=== PATIENT | male | born 1960 | race Caucasian/White ===

== ENCOUNTER → 2016-06-26 | Outpatient (REF) | payer OTHER ==
[~2016-06-26] MED LIST: ELIMITE TOP; NO HOME MEDS; TETR250C OR
== END ==
LOC: M LAB REF 16:35
PROVIDERS: ATTEND Family Medicine Addiction Medicine
DX: Z02.89 Encounter for other administrative examinations (principal)

== ENCOUNTER 2020-05-01 15:16 | Emergency (ER) | payer OTHER, SELFPAY ==
[~2020-05-01] VITALS: Ht 172.7 cm; Wt 56.7 kg
--- NOTE | 2020-05-01 17:40 | REP ---
INDICATION: pain in calf. COMPARISON: None. TECHNIQUE: Deep vein duplex ultrasound of the right lower extremity. FINDINGS: The deep veins demonstrate normal compression, normal Doppler color flow and normal Doppler waveforms at multiple levels from the popliteal vein to the common femoral vein. IMPRESSION: There is no evidence of right lower extremity deep vein thrombus. <Electronically signed by Werner Contreras > 05/01/20 [id number]
[2020-05-01 18:23] LABS: BASO # 0.1 10^3/uL (0.0-0.2); BASO % 0.8 % (0.0-1.0); EOS # 0.1 10^3/uL (0.0-0.5); EOS % 1.2 % (0.0-3.0); HEMATOCRIT 42.5 % (42.0-52.0); HEMOGLOBIN 14.1 g/dl (13.5-17.5); LYMPH # 2.1 10^3/uL (1.5-5.0); LYMPH % 24.5 % (24.0-44.0); MEAN CORPUSCULAR HEMOGLOBIN 31.3 pg (27.0-33.0); MEAN CORPUSCULAR HGB CONC 33.2 g/dl (32.0-36.5); MEAN CORPUSCULAR VOLUME 94.2 fl (80.0-96.0); MONO # 0.6 10^3/uL (0.0-0.8); MONO % 6.9 % (2.0-8.0); NEUTROPHILS # 5.6 10^3/uL (1.5-8.5); NEUTROPHILS % 66.2 % (36.0-66.0); PLATELET COUNT, AUTOMATED 210 10^3/uL (150-450); RED BLOOD COUNT 4.51 10^6/uL (4.30-6.10); WHITE BLOOD COUNT 8.5 10^3/uL (4.0-10.0)
[2020-05-01 18:44] LABS: ERYTHROCYTE SEDIMENTATION RATE 11 mm/hr (0-20)
[2020-05-01 19:07] LABS: MAGNESIUM LEVEL 2.2 MG/DL (1.8-2.4)
[2020-05-01 19:53] VITALS: BP 125/96
== END 2020-05-01 20:21 | disposition home or self-care (01) ==
LOC: M ED 15:16
DX: M79.604 Pain in right leg (principal); J44.9 Chronic obstructive pulmonary disease, unspecified; F17.200 Nicotine dependence, unspecified, uncomplicated; Z88.0 Allergy status to penicillin

== ENCOUNTER 2020-08-20 14:22 | Emergency (ER) | payer OTHER ==
[~2020-08-20] VITALS: Ht 175.3 cm; Wt 47.0 kg
[2020-08-20] MEDS ORDERED: ALBUTEROL SULFATE 2.5 MG/0.5 ML INH NEB SOLN INH ONE (14:40)
[2020-08-20] MEDS ORDERED: IPRATROPIUM 0.5MG/ALBUTEROL 2.5MG INH SOL UD 3ML (DUONEB) NEB ONE (14:40)
[2020-08-20] MEDS ORDERED: methylPREDNISolone 125MG 2ML VIAL IV ONE (14:40)
--- NOTE | 2020-08-20 15:03 | REP ---
INDICATION: DYSPNEA/COUGH COMPARISON: 03/08/2014 TECHNIQUE: Portable AP view of the chest FINDINGS: The mediastinum and cardiac silhouette are stable and within normal limits for portable technique. The lung adler demonstrate chronic emphysematous changes without focal consolidation. No effusion or pneumothorax. Skeletal structures are intact. IMPRESSION: No acute cardiopulmonary process appreciated. <Electronically signed by Daniel Issa > 08/20/20 1500
[2020-08-20 15:42] LABS: BASO # 0.1 10^3/uL (0.0-0.2); BASO % 0.6 % (0.0-1.0); EOS % 0.2 % (0.0-3.0); HEMATOCRIT 52.2 % (42.0-52.0); HEMOGLOBIN 16.6 g/dl (13.5-17.5); LYMPH # 1.3 10^3/uL (1.5-5.0); LYMPH % 10.8 % (24.0-44.0); MEAN CORPUSCULAR HEMOGLOBIN 29.9 pg (27.0-33.0); MEAN CORPUSCULAR HGB CONC 31.8 g/dl (32.0-36.5); MEAN CORPUSCULAR VOLUME 93.9 fl (80.0-96.0); MONO # 0.6 10^3/uL (0.0-0.8); MONO % 4.9 % (2.0-8.0); NEUTROPHILS # 10.3 10^3/uL (1.5-8.5); PLATELET COUNT, AUTOMATED 239 10^3/uL (150-450); RED BLOOD COUNT 5.56 10^6/uL (4.30-6.10); WHITE BLOOD COUNT 12.4 10^3/uL (4.0-10.0)
[2020-08-20 16:04] LABS: ALBUMIN 3.6 GM/DL (3.2-5.2); ALT/SGPT 29 U/L (12-78); BILIRUBIN,DIRECT 0.1 MG/DL (0.0-0.2); BILIRUBIN,TOTAL 0.5 MG/DL (0.2-1.0); BLOOD UREA NITROGEN 27 MG/DL (7-18); CALCIUM LEVEL 9.4 MG/DL (8.8-10.2); CARBON DIOXIDE LEVEL 25 MEQ/L (21-32); CHLORIDE LEVEL 108 MEQ/L (98-107); CK-MB VALUE MASS 4.1 NG/ML (<3.6); CPK CREATINE PHOSPHOKINASE 154 U/L (39-308); CREATININE FOR GFR 0.97 MG/DL (0.70-1.30); GLOMERULAR FILTRATION RATE > 60.0 (>49); GLUCOSE, FASTING 101 MG/DL (70-100); MB/CK RELATIVE INDEX 2.66 (< OR =4); NT-PRO BNP 313 PG/ML (<125); POTASSIUM SERUM 3.9 MEQ/L (3.5-5.1); SODIUM LEVEL 144 MEQ/L (136-145); THYROXINE (T4) 11.3 UG/DL (4.5-12.0); TOTAL PROTEIN 7.6 GM/DL (6.4-8.2); TROPONIN I < 0.02 NG/ML (< 0.10)
[2020-08-20] MEDS ORDERED: ISOVUE-370 76% 100ML VIAL As Ordered ONE (16:33)
--- NOTE | 2020-08-20 17:07 | REP ---
INDICATION: weight loss, cannot swallow, hoarse voice ro ca COMPARISON: None. TECHNIQUE: Axial contrast-enhanced images from the skull base to the thoracic inlet with coronal and sagittal reformations using 100 cc Isovue 370 intravenous contrast material. This CT examination was performed using the following dose reduction techniques: Automated exposure control, adjustment of mA and/or kv according to the patient's size, and use of iterative reconstruction technique. FINDINGS: The naso, shmuel and hypopharynx, larynx and subglottic trachea are grossly normal in appearance. There is subtle asymmetric prominence along the left side of the neck which is likely related to musculature and less likely mass lesion. Evaluation is somewhat limited due to lack of contrast related to timing of image acquisition. The salivary and thyroid glands are normal in size and density. Small lymph nodes less than 1 cm in size are present in the internal jugular chains, posterior triangles, submandibular and submental areas. The lung apices are clear. The visualized sinuses are clear. There is no obvious mass lesion. However enhancement through the soft tissues of the neck is somewhat limited by timing. IMPRESSION: Limited evaluation of the neck without obvious abnormality. There is subtle asymmetric soft tissue along the superficial left side of the neck which may be related to asymmetric musculature. If the patient remains symptomatic contrast-enhanced nonemergent outpatient MRI of the neck may be warranted for further investigation. <Electronically signed by Daniel Issa > 08/20/20 [id number]
--- NOTE | 2020-08-20 17:12 | REP ---
INDICATION: weight loss, cannot swallow, hoarse voice ro ca COMPARISON: 03/08/2014 TECHNIQUE: Axial contrast enhanced images from the thoracic inlet to the upper abdomen with coronal and sagittal reformations using 100 ml Isovue 370 intravenous contrast material. This CT examination was performed using the following dose reduction techniques: Automated exposure control, adjustment of mA and/or kv according to the patient's size, and use of iterative reconstruction technique. FINDINGS: Chronic emphysematous changes along with biapical and limited linear bibasilar scarring is similar to prior examination. There are two posterior left upper lobe subpleural nodules with central calcification which are likely benign and relatively similar to prior examination. The current examination demonstrates significant mucous plugging to the bilateral lower lobes with small early patchy airspace disease suspected in the left lower lobe. No discrete consolidation. No effusion. No pneumothorax. No significant adenopathy. Further evaluation of the mediastinum demonstrates age-related atherosclerotic changes to the thoracic aorta and coronary arteries without aortic aneurysm, dissection or cardiomegaly. No pericardial effusion. Surrounding musculoskeletal structures of the thorax demonstrate age-related changes without obvious focal abnormality. IMPRESSION: 1. Chronic appearing changes. 2. Significant mucous plugging involving the bilateral 1st and 2nd order lower lobe pulmonary bronchi with possible early patchy subtle airspace disease in the left lower lobe. Follow-up to resolution is recommended. <Electronically signed by Daniel Issa > 08/20/20 [id number]
--- NOTE | 2020-08-20 17:18 | REP ---
INDICATION: weight loss, cannot swallow, hoarse voice ro ca. COMPARISON: 12/09/2012 TECHNIQUE: Axial contrast-enhanced images from the lung bases to the pubic symphysis using 100 cc Isovue 370 intravenous contrast material. Delayed images of the abdomen along with coronal and sagittal reformations obtained. This CT examination was performed using the following dose reduction techniques: Automated exposure control, adjustment of mA and/or kv according to the patient's size, and the use of iterative reconstruction technique. FINDINGS: Liver demonstrates scattered small hypodensities similar to prior examination and consistent with cysts. Spleen, pancreas, gallbladder, bilateral adrenal glands and kidneys are normal. Further evaluation of the abdomen and pelvis is significantly limited by cachexia and lack of both intraperitoneal fat/intrinsic contrast and intraluminal contrast opacification. Evaluation of the enteric system is significantly limited although there is no obvious obstruction and no definite inflammatory process. However, a subtle colitis involving the sigmoid colon cannot definitively be excluded and should be correlated clinically. Limited evaluation of the pelvis demonstrates essentially normal bladder and age-appropriate prostate/seminal vesicles. No ascites. No free air. No obvious adenopathy. Atherosclerotic changes to the aorta and vasculature noted without aneurysm or dissection. Musculoskeletal structures demonstrate age-related changes without obvious focal abnormality. IMPRESSION: 1. Significantly limited examination due to lack of intraperitoneal fat and intrinsic contrast as well as lack of intraluminal oral contrast. 2. Cannot exclude a mild sigmoid colitis and correlation is required. 3. No obvious ascites. No free air. No obvious adenopathy. <Electronically signed by Daniel Issa > 08/20/20 0967
[2020-08-20] MEDS ORDERED: PRED20TA PO (17:40)
[2020-08-20] MEDS ORDERED: DOXY1CAP62 PO (17:41)
[2020-08-20] MEDS ORDERED: ALBU8.5H INH (17:41)
[2020-08-20 17:52] VITALS: BP 162/86
--- NOTE | 2020-08-20 19:30 | ECGEPIP ---
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
--- NOTE | 2020-08-21 06:27 | ED PDOC ---
Post-Departure Follow-Up [facility] faxed formal report of ct neck and cta chest for fu Cece Martinez MD Aug 21, 2020 06:27
== END 2020-08-20 17:58 | disposition home or self-care (01) ==
LOC: M ED 14:22
DX: J18.9 Pneumonia, unspecified organism (principal); J44.1 Chronic obstructive pulmonary disease with (acute) exacerbation; R63.4 Abnormal weight loss; R49.0 Dysphonia; R00.0 Tachycardia, unspecified; I51.7 Cardiomegaly; F17.200 Nicotine dependence, unspecified, uncomplicated; Z88.0 Allergy status to penicillin
CPT/HCPCS: 70491; 71045; 71260; 74177; 80048; 80076; 82550; 82553; 83605; 83880; 84436; 84443; 84484; 85025; 87798; 93005; 93041; 94640; 94760; 99285; Q9967

== ENCOUNTER 2020-08-25 06:55 | Inpatient (IN) | payer MEDICAID, OTHER ==
[~2020-08-25] VITALS: Ht 175.3 cm; Wt 45.8 kg
[2020-08-25] VITALS (11 sets, daily range): BP systolic 122–148; BP diastolic 62–73
[~2020-08-25 06:55] MED LIST changes: +ALBU8.5H INH; +DOXY1CAP62 PO; +PRED20TA PO
[2020-08-25] MEDS ORDERED: RACEPINEPHrine 2.25 % UD INHA INH ONE (07:15)
[2020-08-25 07:48] LABS: VENOUS HCO3 29.4 MEQ/L (23.0-27.0); VENOUS O2 SATURATION 84.9 % (60.0-80.0); VENOUS PARTIAL PRESSURE CO2 54.1 mmHg (38.0-50.0); VENOUS PARTIAL PRESSURE O2 50.9 mmHg (30.0-50.0); VENOUS PH 7.353 UNITS (7.330-7.430); VENOUS STANDARD HCO3 25.8 MEQ/L; VENOUS TOTAL CO2 31.1 MEQ/L (24.0-28.0)
[2020-08-25 07:53] LABS: BASO # 0.1 10^3/uL (0.0-0.2); BASO % 0.3 % (0.0-1.0); HEMATOCRIT 57.9 % (42.0-52.0); HEMOGLOBIN 18.8 g/dl (13.5-17.5); LYMPH # 1.1 10^3/uL (1.5-5.0); LYMPH % 5.4 % (24.0-44.0); MEAN CORPUSCULAR HEMOGLOBIN 29.9 pg (27.0-33.0); MEAN CORPUSCULAR HGB CONC 32.5 g/dl (32.0-36.5); MEAN CORPUSCULAR VOLUME 92.1 fl (80.0-96.0); MONO # 1.1 10^3/uL (0.0-0.8); MONO % 5.7 % (2.0-8.0); NEUTROPHILS # 17.4 10^3/uL (1.5-8.5); NEUTROPHILS % 87.9 % (36.0-66.0); PLATELET COUNT, AUTOMATED 256 10^3/uL (150-450); RED BLOOD COUNT 6.29 10^6/uL (4.30-6.10); WHITE BLOOD COUNT 19.8 10^3/uL (4.0-10.0)
--- NOTE | 2020-08-25 08:08 | REP ---
INDICATION: DYSPNEA/COUGH COMPARISON: 08/20/2020 TECHNIQUE: Portable AP view of the chest FINDINGS: The mediastinum and cardiac silhouette are stable and within normal limits for portable technique. The lung adler demonstrate chronic changes without acute consolidation, effusion, or pneumothorax. Skeletal structures are intact. IMPRESSION: No acute cardiopulmonary process appreciated. <Electronically signed by Daniel Issa > 08/25/20 0888
[2020-08-25] MEDS ORDERED: dexameTHASONE 20MG/5ML VIAL (J1100 PER 1MG) IV ONE (08:15)
--- NOTE | 2020-08-25 08:15 | REP ---
INDICATION: DYSPNEA/COUGH. COMPARISON: Comparison is made with images from CT study of the soft tissues of the neck August 20, 2020.. TECHNIQUE: AP and 2 lateral views are provided. FINDINGS: There is fairly extensive soft tissue fullness about the glottis suggesting a glottic or transglottic mass lesion. There is an irregular calcification which in comparison with the CT study from August 20, 2020 is seen to be asymmetric calcification of the left arytenoid cartilage. The CT study confirms the presence of a transglottic mass effect. Retropharyngeal soft tissues are not widened. There is slight is distention of the hypopharynx. Patient is edentulous. There are degenerative disc changes at C3-4, C4-5, C5-6, and C6-7 with straightening of the normal cervical lordosis. There is some vascular calcification in the distribution of the left carotid artery. 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 Asymmetric calcification of the arytenoid cartilage on the left. Mild distention of the hypopharynx and suggestion of airway narrowing at the level of the glottis. 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 The critical information above was relayed directly by me by telephone to Fatoumata Auguste on 08/25/2020 at 8:11 am with readback verification. <Electronically signed by Ten Varner > 08/25/20 0878
[2020-08-25 08:19] LABS: ALBUMIN 3.5 GM/DL (3.2-5.2); BILIRUBIN,DIRECT 0.3 MG/DL (0.0-0.2); BILIRUBIN,TOTAL 0.7 MG/DL (0.2-1.0)
[2020-08-25] MEDS ORDERED: NS 1,000 ML IV SCH ×2 (08:40→12:20)
[2020-08-25] MEDS ORDERED: CETACAINE SPRAY 5GM TOP ONE (08:50)
[2020-08-25] MEDS ORDERED: OXYMETAZOLINE 0.05% NASAL SPRAY (AFRIN) ONE (08:50)
[2020-08-25] MEDS ORDERED: D5W/0.45% SODIUM CHLORIDE 1,000 ML IV SCH (09:25)
[2020-08-25] MEDS ORDERED: LEVALBUTEROL 1.25 MG/0.5 ML CONCENTRATE NEB INH PRN (09:25)
[2020-08-25] MEDS ORDERED: PRED20TA PO (09:27)
[2020-08-25] MEDS ORDERED: PROAAER10 INH (09:27)
[2020-08-25] MEDS ORDERED: DOXY100T27 PO (09:27)
[2020-08-25] MEDS ORDERED: PHENYLEPHRINE 0.5% NASAL SPRAY 15 ML As Ordered ONE (09:29)
[2020-08-25] MEDS ORDERED: LIDOCAINE W/EPINEPHRINE 1% 20ML VIAL As Ordered ONE (09:29)
[2020-08-25] MEDS: LEVALBUTEROL 1.25 MG/0.5 ML CONCENTRATE NEB NEB SCH ×3 (09:45→10:45)
[2020-08-25 09:48] LABS: RSV AMPLIFICATION NEGATIVE (NEGATIVE)
--- NOTE | 2020-08-25 09:55 | CR.PDOC ---
General Date of Consultation: Aug 25, 2020 Referring Provider: A Consultation REASON FOR CONSULTATION/CHIEF COMPLAINT: [Laryngeal mass, stridor]. HISTORY OF PRESENT ILLNESS: [60 YO male presented to ER SOB and stridor. Two month history of progressive ST and SOB. Seen in ER one week ago with same given steroids and d/c. Returned this am with worsening.]. ALLERGIES: Please see below. HOME MEDICATIONS: Please see below. PAST MEDICAL HISTORY: 1. . 2. . PAST SURGICAL HISTORY: 1. 2. FAMILY HISTORY: Father: Mother: Siblings: Children: Hereditary Diseases: Unexpected deaths due to medical reasons: SOCIAL HISTORY: Marital status and/or living arrangements: Children: Employment: Tobacco use:[35 pack years] ETOH: Illicit drug use: IV drug use: Other relevant social factors: REVIEW OF SYSTEMS: CONSTITUTIONAL: . HEENT: . CARDIOVASCULAR: . RESPIRATORY: . GENITOURINARY: . MUSCULOSKELETAL: . GASTROINTESTINAL: . SKIN: . NEUROLOGICAL: . PSYCHIATRIC: . ENDOCRINE: . HEMATOLOGIC/LYMPHATIC: . ALLERGIC/IMMUNOLOGIC: . PHYSICAL EXAMINATION: VITAL SIGNS: Please see below. GENERAL APPEARANCE: [thin cachetic]. HEENT: [Ears bilateral WEATHERS's. Nose left septal deviation. External skin lesion. lip teeth and gums WNL.OC and OP normal. Neck no adenopathy. Fiberoptic scope showed obstructing laryngeal mass no cord motion Small airway posteriorly for breathing.]. RESPIRATORY: [Stridor faint braeth sounds equal.]. CARDIOVASCULAR: [No M/B]. ABDOMEN: . EXTREMITIES: . NEUROLOGICAL: . PSYCHIATRIC: [Pt calm despite stridor.]. LABORATORY DATA: Please see below. ASSESSMENT/PLAN: 1. [Obstructing laryngeal lesion will need immediate OR for awake trach laryngoscopy and biopsy.]. 2. . Vital Signs/I&O Vital Signs Date Time Temp Pulse Resp B/P (MAP) Pulse Ox O2 Delivery O2 Flow Rate FiO2 08/25/20 07:46 Room Air 08/25/20 07:17 97.9 98 26 140/84 (102) 94 Laboratory Data Labs 24H Laboratory Tests 2 08/25/20 07:39: Immature Granulocyte % (Auto) 0.7, Neutrophils (%) (Auto) 87.9H, Lymphocytes (%) (Auto) 5.4L, Monocytes (%) (Auto) 5.7, Eosinophils (%) (Auto) 0.0, Basophils (%) (Auto) 0.3, Neutrophils # (Auto) 17.4H, Lymphocytes # (Auto) 1.1L, Monocytes # (Auto) 1.1H, Eosinophils # (Auto) 0.0, Basophils # (Auto) 0.1, Nucleated Red Blood Cells % (auto) 0.0, Blood Gas Bicarbonate Standard 25.8, Venous Blood pH 7.353, Venous Blood Partial Pressure CO2 54.1H, Venous Blood Partial Pressure O2 50.9H, Venous Blood Total Carbon Dioxide 31.1H, Venous Blood HCO3 29.4H, Venous Blood Oxygen Saturation 84.9H, Venous Blood Base Excess 2.0, Total Bilirubin 0.7, Direct Bilirubin 0.3H, Aspartate Amino Transf (AST/SGOT) 38H, Alanine Aminotransferase (ALT/SGPT) 55, Alkaline Phosphatase 87, Total Protein 8.0, Albumin 3.5, Albumin/Globulin Ratio 0.8 08/25/20 07:46: POC Glucose (Misc Panel) 119H, POC Sodium (Misc Panel) 142, POC Potassium (Misc Panel) 3.8, POC Chloride (Misc Panel) 101, POC Total CO2 (Misc Panel) 29.0H, POC Blood Urea Nitrogen (Misc Panel 51H, POC Ionized Calcium (Misc Panel) 4.2L, POC Creatinine (Misc Panel) 1.0, POC Hematocrit (Misc Panel) 57.0H 08/25/20 07:48: POC Troponin I (Misc) 0.00 08/25/20 08:55: CBC/BMP Laboratory Tests 08/25/20 07:39 Allergies Coded Allergies: Penicillins (Verified Allergy, Intermediate, rash, 05/01/20) Home Medications Scheduled Doxycycline Monohydrate (Doxycycline Monohydrate) 100 Mg Tablet, 100 MG PO Q12H, (Reported) Prednisone (Prednisone) 20 Mg Tablet, 20 MG PO ASDIRECTED, (Reported) 3 TABS DAYS 1-3, 2 TABS DAYS 4-7, 1 TAB DAYS 8-10 PICKED UP FROM PHARMACY 08/22/20 Scheduled PRN Albuterol Sulfate (Proair Hfa) 8.5 Gm Hfa.aer.ad, 2 PUFF INH Q6-8HP PRN for DYSPNEA, (Reported) Dale Veloz MD Aug 25, 2020 09:55
[2020-08-25] MEDS: DOXYCYCLINE HYCLATE 100 MG in D5W MINI-BAG PLUS 100 ML IV SCH ×2 (10:02→22:12)
[2020-08-25] MEDS ORDERED: KETAMINE HCL 200 MG/20 ML VIAL As Ordered ONE (10:05)
--- NOTE | 2020-08-25 10:22 | HPE ---
HISTORY AND PHYSICAL DATE OF ADMISSION: 08/25/2020 CHIEF COMPLAINTS: sob,hard to swallow, sore throat, wheezing HISTORY OF PRESENT ILLNESS: This 60-year-old active smoker of half a pack a day for 35 years, COPD not home oxygen or steroid dependent was seen in the Emergency Room on August 19 due to complaints of sore throat, wheezing and shortness of breath was sent home and returns again today with worsening sore throat, difficulty breathing and worsening wheezing. Patient denies any cough productive of sputum, fever, chills, nausea, vomiting, chest pain, pressure or tightness, lightheadedness or near syncopal episode at home. In the ER patient was noted to have mild respiratory distress, but was saturating 94% on room air; stridor noted on examination. CT of the neck shows soft tissue mass effect in and about the level of the glottis consistent with laryngeal neoplasm with asymmetric calcification of thyroid cartilage on the left and extension of the hypopharynx suggestive of airway narrowing. 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 Hospitalist was asked to admit the patient emergently for airway compromise secondary to possible laryngeal neoplasm. ENT, Dr. Veloz had done a direct laryngoscopy and will bring the patient to the operating room emergently. Patient otherwise denies any prior history of CAD, KS, congestive heart failure. Chest x-ray is clear with no heart failure or acute cardiopulmonary process. He denies any chest pain, pressure or tightness, near syncopal episode at home. He otherwise denies any weight changes, dysphagia, odynophagia, bright red blood per rectum, melena, black tarry stool, coffee ground emesis or hematemesis. No dysuria, urgency or frequency, fever or chills, bilateral upper and lower extremity paresthesias or weakness. No depression or anxiety. Complains of sore throat with no pharyngeal discharge, fever or chills at home. No rhinorrhea. Respiratory panel for Coronavirus is pending. Patient has a white count of 19.8, hemoglobin 18, hematocrit 57. PAST MEDICAL HISTORY: COPD. PAST SURGICAL HISTORY: None. ALLERGIES: PENICILLIN causing rash. HOME MEDICATIONS: 1. Albuterol 2 puffs q6-8h. 2. Doxycycline 100 twice a day. 3. Prednisone 20 as directed. FAMILY HISTORY: Father age 68 with emphysema was a smoker; mother with brain cancer in her 70s. SOCIAL HISTORY: Half a pack of smoking for 35 years. Retired worked in [employer]. No alcohol abuse. Patient does not have a Health Care Proxy. He is a Full Code. He has family Alcon Brizuela in [place] who is his nephew and a niece named Althea Brizuela, lives on [address] in [place]. REVIEW OF SYSTEMS: Per HPI, 12 point system otherwise negative. PHYSICAL EXAMINATION: Vital signs: Temperature 97.9, pulse 98, respiratory rate 26, blood pressure 140/84, 94% on room air. General: Patient is awake, alert, oriented times 3, mild conversational dyspnea 7-8 words and needs to catch his breath. He is disheveled appearing, cachetic with BMI of 19. He currently has stridor on exam. Neck: No thyromegaly, no cervical lymphadenopathy. Lungs: Diminished with bilateral expiratory wheezing. Heart: S1 and S2 sinus rhythm. Abdomen: Soft, nontender, nondistended, positive bowel sounds. Extremities: No cyanosis or clubbing. LABORATORY DATA: White count 19.8, hemoglobin 18.8, hematocrit 57.9, platelet count 256. Sodium 142, potassium 3.8, chloride 101, bicarb 28, BUN 51, creatinine 1, glucose 119. Ionized calcium 4.2. Troponin 0. Venous blood gas: pH 7.35, CO2 54, O2 50.9, bicarb 29.9. IMAGING STUDIES: EKG: Sinus rhythm, ventricular rate of 112, right atrial enlargement and ST changes in the inferior leads. X-ray shows a laryngeal mass concerning for neoplasm with airway compromise. ASSESSMENT: This is a 60-year-old active smoker with COPD presents with a previous sore throat on 08/19, treated with doxycycline and prednisone, re-presented with worsening shortness of breath with tracheal deviation due to airway compromise for a laryngeal mass. IMPRESSIONS/PLAN: 1. Acute airway compromise secondary to laryngeal mass: Patient is unstable and will need to go to the operating room emergently. Dr. Veloz, ENT, has been consulted. He has been kept n.p.o. with I.V. fluids for prevention of hypoglycemia, supplementation oxygen to keep saturations above 90%, continue with Solu-Medrol and nebulizer treatments, doxycycline. 2. COPD exacerbation currently with severe wheezing bilaterally: Nebulizer treatments are given, Xopenex as well as Solu-Medrol and doxycycline, supplementation oxygen to keep O2 sat greater than 90%. 3. Active tobacco abuse of half a pack a day for 35 years: Tobacco cessation counseling, nicotine patch. 4. Medical clearance: Patient needs to emergently go to the operating room. No prior history of CAD, KS or congestive heart failure; does not complain of any acute coronary syndrome. Patient is medically optimized to proceed to the OR. 5. DVT prophylaxis: With compression stockings. DIET: N.p.o. CODE STATUS: Full Code. MTDD
[2020-08-25] MEDS ORDERED: LABETALOL 100MG/20ML VIAL As Ordered ONE (10:52)
[2020-08-25] MEDS ORDERED: PHENYLephrine 500MCG 5ML (100MCG/ML) SYRINGE As Ordered ONE ×2 (11:03→11:21)
[2020-08-25] MEDS ORDERED: OXYMETAZOLINE 0.05% NASAL SPRAY (AFRIN) As Ordered ONE (11:16)
[2020-08-25] MEDS ORDERED: ROCURONIUM BROMIDE 50 MG/5 ML VIAL As Ordered ONE (11:21)
[2020-08-25] MEDS ORDERED: dexameTHASONE 4 MG/ML 1ML VIAL (J1100 PER 1MG) As Ordered ONE (11:21)
[2020-08-25] MEDS ORDERED: propofoL 200 MG/20 ML VIAL As Ordered ONE (11:22)
[2020-08-25] MEDS ORDERED: ONDANSETRON 4MG/2ML VIAL As Ordered ONE (11:22)
[2020-08-25] MEDS ORDERED: fentaNYL 100 MCG/2 ML INJECTION (J3010) As Ordered ONE (11:23)
[2020-08-25] MEDS ORDERED: MIDAZOLAM INJ 2MG/2ML VIAL (J2250 PER 1MG) As Ordered ONE (11:24)
[2020-08-25] MEDS ORDERED: SUGAMMADEX SODIUM 500 MG/5 ML VIAL (BRIDION) As Ordered ONE (11:26)
[2020-08-25] MEDS ORDERED: BACITRACIN OINTMENT 30GM TUBE As Ordered ONE (11:28)
[2020-08-25] MEDS ORDERED: HYDROMORPHONE HCL 0.5 MG/ 0.5 ML SYRINGE (J1170 PER 1) IV PRN (12:05)
[2020-08-25] MEDS ORDERED: ONDANSETRON 4MG/2ML VIAL IV PRN ×2 (12:05→12:20)
[2020-08-25] MEDS ORDERED: fentaNYL 100 MCG/2 ML INJECTION (J3010) IV PRN (12:05)
[2020-08-25] MEDS ORDERED: oxyCODONE 5MG TAB PO PRN (12:05)
[2020-08-25] MEDS ORDERED: LR 1,000 ML IV SCH (12:05)
[2020-08-25] MEDS ORDERED: EPIDURAL/PCA KEYS XX PRN (12:20)
[2020-08-25] MEDS ORDERED: MORPHINE 1MG/ML IN 0.9% NACL 100ML IV BAG IV PRN (12:20)
[2020-08-25] MEDS ORDERED: diphenhydrAMINE 50MG/ML VIAL (J1200) IV PRN (12:20)
[2020-08-25] MEDS ORDERED: NALOXONE INJ 0.4MG/1ML VIAL (J2310 PER 1MG) IV PRN (12:20)
[2020-08-25] MEDS ORDERED: NALBUPHINE HCL 10 MG/ML AMP (J2300) IV PRN (12:20)
[2020-08-25] MEDS: LEVALBUTEROL 1.25 MG/0.5 ML CONCENTRATE NEB INH SCH ×4 (13:22→23:28)
[2020-08-25] MEDS: NICOTINE 14 MG/24 HR TRANSDERMAL TD SCH (14:17)
[2020-08-25] MEDS: methylPREDNISolone 125MG 2ML VIAL IV SCH ×2 (14:18→20:18)
[2020-08-25] MEDS: LR 1,000 ML IV SCH (14:22)
[2020-08-25 14:37] LABS: INR 1.06
[2020-08-25 15:04] LABS: C REACTIVE PROTEIN QUANTITATIV 2.82 MG/DL (0.00-0.30); PREALBUMIN 14.9 MG/DL (20.0-40.0)
--- NOTE | 2020-08-25 15:51 | POST-OPPD ---
Postoperative Procedure Note Date Of Procedure: Aug 27, 2020 PREOPERATIVE DIAGNOSIS: [Obstructing laryngeal mass] POSTOPERATIVE DIAGNOSIS: [Same] FINDINGS: PROCEDURE: [Awake tracheostomy, suspension microlaryngoscopy and biopsy, biopsy of left submandibular skin lesion] SURGEON: Aminata] HEAD BUYER TOBACCO: [Yuki] ANESTHESIA: [Local for the awake trach general for the laryngoscopy and biopsy and for the biopsy of the left submandibular skin lesion] SPECIMENS: [#1 right and left laryngeal biopsies #2 left submandibular skin lesion] ESTIMATED BLOOD LOSS: [Less than 20 mL] REPLACED: [None] DRAINS: [None] COMPLICATIONS: [None] POSTOPERATIVE CONDITION: [Stable]. Operative note: Raymond is a 60-year-old gentleman who was seen in the emergency room with airway distress and sore throat. Fiberoptic exam revealed an obstructing laryngeal lesion. In my opinion it was not possible to intubate him safely. Therefore decision was made to take him to the operating room to undergo an awake tracheostomy and biopsy of the laryngeal lesion. Patient provided informed consent after discussion of the risks and benefits. He was taken to the operating room and positioned appropriately. The neck was prepped and draped in the usual fashion. We injected the skin with 1% lidocaine with epinephrine. Using a surgical marking pen we traced the proposed incision line. We then used a 15 blade to incise the skin sharply. We dissected the subcutaneous tissues down to the strap muscles which were . We identified the trachea in midline by palpation and ligated the soft tissues until the tracheal rings were exposed. We then cauterized the surface of the trachea. Using a 15 blade we incised into the tracheal space. We suctioned a large amount of mucus. A #8 Shiley endotracheal tube was placed. The balloon was inflated. Good oxygenation was obtained and the patient reported immediate relief of his obstructive breathing. He is then was administered general anesthesia. The endotracheal tube was secured with 2-0 silk suture in 4 quadrants. This was reinforced with trach ties. The bed was turned 90 degrees. The upper gums were protected with a moist gauze. A Dedo laryngoscope was inserted into the airway. The tongue base vallecula piriform and postcricoid areas were examined and were clear. The laryngeal surface of the epiglottis appeared clear. There was a large tumor involving the left and right true cord and false cord area. There was very little airway posteriorly. The Lewy suspension apparatus was connected. The microscope was brought into position. Cup biopsy forceps were used to sample tissue from the right and left laryngeal areas. Hemostasis was achieved with pledgets soaked in Afrin. These were removed. Hemostasis was evident. The laryngoscope was released from the Lewy suspension apparatus and removed from the airway. 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 Decision was made to biopsy this under the anesthesia. We injected with 1% lidocaine with epinephrine. We made a wedge biopsy with an 11 blade and remove this. We placed several 5-0 nylon sutures to close the area. Bacitracin ointment was placed on the incision. Patient was allowed to recover and taken to the postanesthesia care area in stable condition. Dale Veloz MD Aug 25, 2020 15:51
--- NOTE | 2020-08-25 17:01 | ECGEPIP ---
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
[2020-08-25] MEDS: BACITRACIN OINTMENT 30GM TUBE TOP SCH (22:11)
[2020-08-26] VITALS (21 sets, daily range): BP systolic 119–150; BP diastolic 60–77; O2SAT 89–97
[2020-08-26] MEDS: LR 1,000 ML IV SCH (02:27)
[2020-08-26] MEDS: methylPREDNISolone 125MG 2ML VIAL IV SCH ×3 (02:27→20:35)
[2020-08-26] MEDS: LEVALBUTEROL 1.25 MG/0.5 ML CONCENTRATE NEB INH SCH ×5 (03:20→20:04)
[2020-08-26 04:52] LABS: HEMATOCRIT 47.7 % (42.0-52.0); HEMOGLOBIN 15.2 g/dl (13.5-17.5); MEAN CORPUSCULAR HEMOGLOBIN 29.4 pg (27.0-33.0); MEAN CORPUSCULAR HGB CONC 31.9 g/dl (32.0-36.5); MEAN CORPUSCULAR VOLUME 92.3 fl (80.0-96.0); PLATELET COUNT, AUTOMATED 244 10^3/uL (150-450); RED BLOOD COUNT 5.17 10^6/uL (4.30-6.10); WHITE BLOOD COUNT 17.5 10^3/uL (4.0-10.0)
[2020-08-26 05:06] LABS: INR 1.05; PROTHROMBIN TIME 13.9 SECONDS (12.5-14.3)
[2020-08-26 05:07] LABS: PARTIAL THROMBOPLASTIN TIME 30.3 SECONDS (24.2-38.5)
[2020-08-26 05:13] LABS: ALT/SGPT 56 U/L (12-78); BILIRUBIN,DIRECT 0.4 MG/DL (0.0-0.2); BILIRUBIN,TOTAL 0.8 MG/DL (0.2-1.0); BLOOD UREA NITROGEN 39 MG/DL (7-18); CARBON DIOXIDE LEVEL 35 MEQ/L (21-32); CHLORIDE LEVEL 103 MEQ/L (98-107); CREATININE FOR GFR 0.86 MG/DL (0.70-1.30); GLOMERULAR FILTRATION RATE > 60.0 (>49); GLUCOSE, FASTING 98 MG/DL (70-100); POTASSIUM SERUM 4.2 MEQ/L (3.5-5.1); SODIUM LEVEL 141 MEQ/L (136-145); TOTAL PROTEIN 6.3 GM/DL (6.4-8.2)
--- NOTE | 2020-08-26 08:23 | REP ---
INDICATION: chest pain COMPARISON: 08/25/2020 at 7:52 a.m. TECHNIQUE: Portable AP view of the chest FINDINGS: Patient is status post tracheostomy which appears to be in satisfactory position. There is extensive subcutaneous emphysema at the neck extending into the bilateral shoulders and upper baylee thoraces as well as suspected did pneumomediastinum. Cardiac silhouette is normal/stable. The lung adler are clear. No consolidation, effusion, or pneumothorax. Skeletal structures are intact. IMPRESSION: 1. Recently placed tracheostomy with extensive subcutaneous emphysema and suspected pneumomediastinum. <Electronically signed by Daniel Issa > 08/26/20 0819
--- NOTE | 2020-08-26 09:07 | IPNPDOC ---
Subjective Date Seen The patient was seen on 08/26/20. Subjective Chief Complaint/HPI Obstructing laryngeal mass Events since last encounter Raymond is postop day 1 status post awake tracheostomy, suspension microlaryngoscopy and biopsy of laryngeal tumor, biopsy of left submandibular skin lesion. He is resting comfortably in the ICU. He has been stable overnight with no issues. Trach collar is in place and sats are in the mid 90s. He is requiring routine suctioning. No fever. Objective Physical Examination Other physical findings He is resting comfortably following his procedure with no complications to date. As discussed with Dr. Sung his p.o. status. I suspect that he would be at significant risk for aspiration. They will consider PEG tube placement. Assessment /Plan Assessment Stable post awake tracheostomy and laryngeal biopsy. Plan/VTE VTE Prophylaxis Ordered?: No VS, I&O, 24H, Fishbone Vital Signs/I&O Vital Signs Date Time Temp Pulse Resp B/P (MAP) Pulse Ox O2 Delivery O2 Flow Rate FiO2 08/26/20 07:00 72 135/70 (91) 97 Trach Collar 5.0 28 08/26/20 06:00 18 08/26/20 04:00 97.8 I&O- Last 24 Hours up to 6 AM 08/26/20 06:00 Intake Total 3102.5 ml Output Total 935 ml Balance 2167.5 ml Laboratory Data 24H LABS Laboratory Tests 2 08/25/20 14:00: Erythrocyte Sedimentation Rate 7, Prothrombin Time 14.0, Prothromb Time International Ratio 1.06, C-Reactive Protein, Quantitative 2.82H, Prealbumin 14.9L 08/26/20 00:03: Troponin I < 0.02 08/26/20 04:23: Prothrombin Time 13.9, Prothromb Time International Ratio 1.05, Nucleated Red Blood Cells % (auto) 0.0, Activated Partial Thromboplast Time 30.3, Anion Gap 3L, Glomerular Filtration Rate > 60.0, Calcium Level 9.0, Total Bilirubin 0.8, Direct Bilirubin 0.4H, Aspartate Amino Transf (AST/SGOT) 51H, Alanine Aminotransferase (ALT/SGPT) 56, Alkaline Phosphatase 67, Total Protein 6.3#L, Albumin 3.0L, Albumin/Globulin Ratio 0.9 CBC/BMP Laboratory Tests 08/26/20 04:23 Microbiology Microbiology 08/25/20 Blood Culture, Received Pending 08/25/20 Blood Culture, Received Pending Dale Veloz MD Aug 26, 2020 09:07
[2020-08-26] MEDS: BACITRACIN OINTMENT 30GM TUBE TOP SCH ×2 (09:17→20:35)
[2020-08-26] MEDS: DOXYCYCLINE HYCLATE 100 MG in D5W MINI-BAG PLUS 100 ML IV SCH ×2 (09:17→20:36)
[2020-08-26] MEDS: NICOTINE 14 MG/24 HR TRANSDERMAL TD SCH (09:17)
--- NOTE | 2020-08-26 10:05 | REP ---
INDICATION: chest pain COMPARISON: 08/25/2020 TECHNIQUE: Portable AP view of the chest FINDINGS: Tracheostomy overlies the airway. Significant subcutaneous emphysema through the neck into the bilateral chest swift along with mild to moderate amount of pneumomediastinum similar to prior examination. The cardiac silhouette is stable and within normal limits for portable technique. The lung adler are clear without acute consolidation, effusion, or pneumothorax. Skeletal structures are intact. IMPRESSION: No change. Continued subcutaneous emphysema and pneumomediastinum. No pulmonary parenchymal consolidation, effusion, or pneumothorax. <Electronically signed by Daniel Issa > 08/26/20 1003
--- NOTE | 2020-08-26 10:52 | REP ---
INDICATION: leukocytosis r/o pneumonia sob cough COMPARISON: None TECHNIQUE: Axial noncontrast images from the thoracic inlet to the upper abdomen with coronal and sagittal reformations. This CT examination was performed using the following dose reduction techniques: Automated exposure control, adjustment of mA and/or kv according to the patient's size, and use of iterative reconstruction technique. FINDINGS: Tracheostomy is identified extending into the tracheal lumen terminating 3 cm above the level of the orin. Extensive subcutaneous emphysema and pneumomediastinum is appreciated. The lung adler demonstrate very subtle elements of airspace disease involving the left lower lobe suggesting the very subtle/early pneumonia. Chronic appearing biapical scarring as well as few small left-sided subpleural nodules with central calcification suggest chronic granulomatous change. No further parenchymal consolidation, suspicious nodule or mass. No effusion. No obvious pneumothorax. No obvious adenopathy. Thoracic aorta and pulmonary vasculature appear grossly normal. No evidence for aortic aneurysm. No cardiomegaly or pericardial effusion. Skeletal structures are intact. IMPRESSION: 1. Tracheostomy appears to be in satisfactory position. 2. Extensive subcutaneous emphysema and pneumomediastinum. 3. Very subtle/early left lower lobe infiltrate. <Electronically signed by Daniel Issa > 08/26/20 [id number]
--- NOTE | 2020-08-26 11:01 | REP ---
INDICATION: leukocytosis r/o pneumonia sob cough COMPARISON: None TECHNIQUE: Axial noncontrast images from the lung bases to the pubic symphysis with coronal and sagittal reformations. This CT examination was performed using the following dose reduction techniques: Automated exposure control, adjustment of mA and/or kv according to the patient's size, and use of iterative reconstruction technique. FINDINGS: Small amounts of known subcutaneous emphysema tracks along the anterior abdominopelvic wall as well as small amount of gas surrounding the muscles in the left groin. A small amount of pneumoperitoneum cannot definitively be excluded. Liver demonstrates multiple hypodensities likely representing cysts measuring up to 1.2 cm. Cholelithiasis without acute cholecystitis. Spleen, pancreas, bilateral adrenal glands and kidneys are grossly normal for noncontrast evaluation. The enteric system suggests moderate fecal stasis and constipation. Further evaluation of the enteric system is limited by lack of intraluminal oral contrast and intrinsic contrast due to decreased BMI. Free air primarily along the anterior abdominal wall likely related to pneumomediastinum tracking into the abdomen and pelvis and less likely due to bowel perforation although correlation is required. Pelvis demonstrates normal bladder and moderate prostatomegaly. No ascites. No obvious adenopathy. No focal inflammatory stranding. Abdominal aorta without aneurysm. Musculoskeletal structures are intact and without acute osseous abnormality. IMPRESSION: 1. Examination is significantly limited due to lack of oral/IV contrast and lack of intrinsic contrast due to low BMI. 2. Elements of irregular gas as described above likely related to pneumomediastinum and tracking into the extraperitoneal spaces of the abdomen and pelvis. Less likely intraperitoneal gas related to bowel perforation. 3. No obvious acute abdominopelvic pathology appreciated. <Electronically signed by Daniel Issa > 08/26/20 [id number]
--- NOTE | 2020-08-26 11:36 | IPN ---
PROGRESS NOTE DATE: 08/26/2020 SUBJECTIVE: Overnight the patient has been stable. Telemetry shows sinus rhythm with ventricular rate of 72. The patient has mucoid yellow secretions with a trach collar. He is in no respiratory distress. No fever or chills overnight. Currently on IV fluids n.p.o. status due to aspiration risk. 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 Per radiology, repeat chest x-ray this morning shows pneumomediastinum and subcutaneous emphysema, most commonly seen status post tracheostomy. OBJECTIVE: VITAL SIGNS: Temperature 97.8, pulse 68, respiratory rate 18, blood pressure 135/70, 97%, 5 liters trach collar, 28% FiO2. GENERAL: The patient is cachectic with bitemporal wasting and disheveled. HEENT: Dry mucous membranes. Mucoid secretions through the trach. Subcutaneous emphysema noted on the neck and anterior chest. NECK: No JVD, thyromegaly, or cervical lymphadenopathy. LUNGS: Diminished, improved wheezing. HEART: S1, S2, sinus rhythm. ABDOMEN: Soft, nontender, and nondistended with positive bowel sounds. EXTREMITIES: Muscle atrophy. No contractures. No pitting edema, cyanosis, or clubbing. LABORATORY DATA: White count 17.5, hemoglobin 15, hematocrit 47, platelet count 244,000. Sodium 141, potassium 4.2, chloride 103, bicarb 35, BUN 39, creatinine 0.86, glucose of 98. Direct bilirubin 0.4, AST 51, ALT 56. Coronavirus 19 negative. Laboratory data and imaging studies all reviewed, see the chart. ASSESSMENT: This is a 60-year-old male admitted 08/25 after complaining of sore throat seen in the ER on 08/19 discharged on prednisone and antibiotics who presents with shortness of breath, dysphagia, sore throat, and wheezing found to have an airway obstruction due to a laryngeal mass. Emergently went to the OR for tracheostomy and biopsy found to have possible laryngeal cancer. The patient has developed subcutaneous emphysema and pneumomediastinum status post trach, but hemodynamically stable. Active issues are as follows: 1. Acute hypoxic respiratory failure secondary to airway obstruction from laryngeal mass. 2. Laryngeal mass status post tracheostomy and biopsy most likely laryngeal cancer. 3. 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 4. Active tobacco abuse. 5. Chronic obstructive pulmonary disease (COPD) exacerbation. PLAN: The patient is medically stable to be transferred to progressive care unit (PCU). Trach care, respiratory therapist has been consulted to teach the patient how to suction and care for his trach, Passy-Shukri valve at some point, and continue with n.p.o. status for now. General surgery, Dr. Dickinson, has been consulted for feeding tube placement. The patient has been encouraged to sign a health care proxy. He will need a medical oncology and radiation oncology referral as an outpatient. Potential port placement for chemotherapy if warranted. Medical Transcription Supervisor will be consulted for feeding tube recommendations in light of patient's severe protein-calorie malnutrition, cancer cachexia, and ongoing aspiration risk due to laryngeal mass and airway obstruction. The patient's activity will be increased as tolerated. Acute rehab unit screen will be ordered. Due to leukocytosis, the patient will be sent for CT chest, abdomen, and pelvis to rule out underlying pneumonia. He is currently on doxycycline and IV Solu-Medrol nebulizer treatments q. 4 hourly. Continue with incentive spirometry and Acapella for mucous clearance. MTDD
[2020-08-26] MEDS ORDERED: MORPHINE 4 MG/ML 1ML VIAL/SYRINGE (J2270) IV PRN (11:50)
[2020-08-26] MEDS: KCL 10MEQ IN D5/0.45NS 1000ML 1,000 ML IV SCH ×2 (12:24→20:35)
--- NOTE | 2020-08-26 17:35 | ECGEPIP ---
[facility] Test Date: 2020-08-25 Pat Name: JORDYN MONTANA Department: Room: [place] [address] Gender: Male [employer]r: ICU : 1960 Requested By: OMAYRA LOVE Order Number: [id number] Reading MD: Dale Shin Measurements Intervals [place] Rate: 75 P: 83 NV: 124 QRS: 50 QRSD: 56 T: 65 QT: 418 QTc: 466 Interpretive Statements Normal sinus rhythm Possible Left atrial enlargement Low voltage QRS markedly decreased from tracing done 717 on same date Septal infarct , age undetermined ST & T wave abnormality, consider anterior ischemia Electronically Signed on 08-26-2020 17:35:33 EDT by Dale Shin
[2020-08-27] VITALS (14 sets, daily range): BP systolic 118–144; BP diastolic 60–67; O2SAT 87–95
[2020-08-27] MEDS: LEVALBUTEROL 1.25 MG/0.5 ML CONCENTRATE NEB INH SCH ×6 (00:46→20:23)
[2020-08-27 06:08] LABS: HEMATOCRIT 46.2 % (42.0-52.0); HEMOGLOBIN 15.1 g/dl (13.5-17.5); MEAN CORPUSCULAR HEMOGLOBIN 29.7 pg (27.0-33.0); MEAN CORPUSCULAR HGB CONC 32.7 g/dl (32.0-36.5); MEAN CORPUSCULAR VOLUME 90.8 fl (80.0-96.0); PLATELET COUNT, AUTOMATED 219 10^3/uL (150-450); RED BLOOD COUNT 5.09 10^6/uL (4.30-6.10); WHITE BLOOD COUNT 23.5 10^3/uL (4.0-10.0)
[2020-08-27 06:26] LABS: BLOOD UREA NITROGEN 29 MG/DL (7-18); CALCIUM LEVEL 8.7 MG/DL (8.8-10.2); CARBON DIOXIDE LEVEL 31 MEQ/L (21-32); CHLORIDE LEVEL 102 MEQ/L (98-107); CREATININE FOR GFR 0.74 MG/DL (0.70-1.30); GLOMERULAR FILTRATION RATE > 60.0 (>49); GLUCOSE, FASTING 111 MG/DL (70-100); POTASSIUM SERUM 3.6 MEQ/L (3.5-5.1); SODIUM LEVEL 139 MEQ/L (136-145)
[2020-08-27] MEDS: KCL 10MEQ IN D5/0.45NS 1000ML 1,000 ML IV SCH ×2 (08:15→20:11)
[2020-08-27] MEDS: methylPREDNISolone 125MG 2ML VIAL IV SCH ×3 (08:15→20:12)
[2020-08-27] MEDS: BACITRACIN OINTMENT 30GM TUBE TOP SCH ×2 (08:15→20:14)
[2020-08-27] MEDS: NICOTINE 14 MG/24 HR TRANSDERMAL TD SCH (08:16)
--- NOTE | 2020-08-27 08:58 | IPNPDOC ---
Subjective Date Seen The patient was seen on 08/27/20. Subjective Chief Complaint/HPI Obstructing laryngeal mass Events since last encounter Raymond is postop day 2 status post awake tracheostomy and biopsy of laryngeal mass. He has done well over the last 24 hours is resting comfortably. No bleeding or infection evident. Some subcutaneous emphysema noted on chest x- ray. He has been moved from the ICU to the PCU. Objective Physical Examination Other physical findings Raymond is resting comfortably trach site is clean and dry no evidence of infection. No palpable subcu emphysema externally. Assessment /Plan Assessment Stable post tracheostomy and laryngeal biopsy. Of note white count is elevated today possible steroid effect. Cultures pending. Plan/VTE VTE Prophylaxis Ordered?: No VS, I&O, 24H, Fishbone Vital Signs/I&O Vital Signs Date Time Temp Pulse Resp B/P (MAP) Pulse Ox O2 Delivery O2 Flow Rate FiO2 08/27/20 04:00 97.3 66 18 128/62 (84) 90 Trach Collar 8.0 35 I&O- Last 24 Hours up to 6 AM 08/27/20 06:00 Intake Total 2800 ml Output Total 900 ml Balance 1900 ml Laboratory Data 24H LABS Laboratory Tests 2 08/27/20 05:10: Nucleated Red Blood Cells % (auto) 0.0, Anion Gap 6L, Glomerular Filtration Rate > 60.0, Calcium Level 8.7L CBC/BMP Laboratory Tests 08/27/20 05:10 Microbiology Microbiology 08/25/20 Blood Culture - Preliminary, Resulted No growth after 24 hours . All specim... 08/25/20 Blood Culture - Preliminary, Resulted No growth after 24 hours . All specim... Dale Veloz MD Aug 27, 2020 08:58
--- NOTE | 2020-08-27 09:02 | REP ---
INDICATION: pneumomediastinum check resolution or worsening COMPARISON: 08/26/2020 TECHNIQUE: PA and lateral. FINDINGS: Subcutaneous emphysema along with pneumomediastinum are again noted and essentially unchanged when allowing for variation in technique. Increasing left perihilar and lower lobe opacities suggesting elements of atelectasis along with small bilateral pleural effusions.. IMPRESSION: Subcutaneous emphysema and pneumomediastinum essentially unchanged. Increasing left perihilar and lower lobe opacities along with small pleural effusions. <Electronically signed by Daniel Issa > 08/27/20 0807
[2020-08-27] MEDS ORDERED: ENOXAPARIN 40MG/0.4ML SYRINGE (J1650 PER 10MG) SC ONE (10:00)
--- NOTE | 2020-08-27 10:50 | IPN ---
PROGRESS NOTE DATE: 08/27/2020 SUBJECTIVE: The patient is still very wheezy this morning after decreasing the Solu-Medrol to q.12 hourly yesterday, had significant mucus production requiring suctioning. He currently has had a PEG tube put in yesterday, still on IV fluids, awaiting distributing clerk consult and permission from surgery to use the feeding tube. The patient is unable to speak. He will be receiving trach care training from nursing and speech therapy will be consulted to work with him starting Friday. Due to worsening wheezing, his Solu-Medrol will be increased to 60 IV q.6 hourly until the wheezing has completely resolved. The patient is activity as tolerated. He has no other issues this morning, denies fever, chills. Blood cultures remain negative. Laboratory data: 08/27 CBC, metabolic panel has been reviewed, microbiology and imaging studies: Chest CT, abdomen and pelvis performed shows subcutaneous emphysema, pneumomediastinum and early left lower lobe infiltrate. CT, abdomen has no acute abdominal-pelvic findings. Patient started on Avalox for left lower lobe pneumonia, community-acquired with presenting white count which was elevated. OBJECTIVE: Vital signs: Temperature 97.8, pulse 67, respiratory 16, blood pressure 144/67, 90% on eight liters trach collar, 35% FiO2. Significant mucoid secretions around the trach area currently being suctioned. General: The patient is awake, alert and oriented, whispering at the bedside but understandable. He has trach with mucoid, subcutaneous emphysema noted in the anterior chest. Heart: S1, S2, sinus rhythm, no murmurs, rubs or gallops. Abdomen: Soft, nontender, nondistended. The patient appears cachectic, bitemporal wasting, ribs exposed. Lungs: Diminished, bilateral wheezing. Air entry is equal. Trach in place. Feeding tube in place. Extremities: No cyanosis, clubbing or pitting edema. Laboratory data and imaging studies reviewed. ASSESSMENT AND PLAN: This is a 60-year-old male, complained of sore throat, seen in the ER on 08/19, discharged on prednisone, antibiotics, returned on 08/25 with worsening shortness of breath, dysphagia, sore throat and wheezing, found to have airway obstruction due to laryngeal mask and wheezing due to asthma exacerbation with elevated white count. The patient emergently went to the OR for tracheostomy and biopsy of laryngeal mask, concerning for cancer. The patient developed subcutaneous emphysema and pneumomediastinum, status post trach but hemodynamically stable and was transferred out of ICU to PCU. ACUTE ISSUES: 1. Acute hypoxic respiratory failure secondary to airway obstruction from neck laryngeal mask, status post tracheostomy and biopsy, most likely laryngeal cancer. 2. Severe protein calorie malnutrition with body mass index of 14 possibly due to cancer cachexia. 3. Mgzjw-so-zmdkonc COPD exacerbation. 4. Active tobacco abuse. 5. Mild clearance of secretions. 6. Steroid-induced leukocytosis. 7. Community-acquired left lower lobe pneumonia. PLAN: Due to persistent elevation in white count despite not having a fever, the patient will be started on Avalox for seven days. PEG tube has been placed. Nutrition is consulted for feeding tube feedings and can transition from IV to p.o. meds once the feeding tube can be used. Trach care by nursing. The patient will need to be taught how to suction appropriately to prevent further mild clearance of secretions, chest PT, incentive spirometry. Medical oncology and rad onc once pathology is finalized. Continue to monitor for respiratory distress. Keep saturations above 90% at all times. DVT prophylaxis with Lovenox, nicotine patch, tobacco cessation counseling, discontinue patient's doxycycline and start the patient on moxifloxacin. MTDD
[2020-08-27] MEDS: MOXIFLOXACIN HCL 400 MG in IV 1 EA IV SCH (11:00)
--- NOTE | 2020-08-27 15:12 | IPNPDOC ---
Date Seen The patient was seen on 08/27/20. Progress Note correction on today's progress note: PE: abd: no feeding tube a/p: feeding tube planned for friday by surgery. per RN, pt was given po diet by dieteray by mistake. pt finished the sandwich w/o signs of aspiration. pt to be kept npo due to laryngeal mass s/p trach to decrease aspiration risk. VS, I&O, 24H, Fishbone Vital Signs/I&O Vital Signs Date Time Temp Pulse Resp B/P (MAP) Pulse Ox O2 Delivery O2 Flow Rate FiO2 08/27/20 13:00 94 Trach Collar 8.0 35 08/27/20 12:00 97.7 85 17 126/60 (82) I&O- Last 24 Hours up to 6 AM 08/27/20 06:00 Intake Total 2800 ml Output Total 900 ml Balance 1900 ml Laboratory Data 24H LABS Laboratory Tests 2 08/27/20 05:10: Nucleated Red Blood Cells % (auto) 0.0, Anion Gap 6L, Glomerular Filtration Rate > 60.0, Calcium Level 8.7L CBC/BMP Laboratory Tests 08/27/20 05:10 Microbiology Microbiology 08/25/20 Blood Culture - Preliminary, Resulted No Growth after 48 hours. All Specime... 08/25/20 Blood Culture - Preliminary, Resulted No Growth after 48 hours. All Specime... ARMANDO GRAY MD Aug 27, 2020 15:12
[2020-08-28] VITALS (8 sets, daily range): BP systolic 123–147; BP diastolic 60–71; O2SAT 92–100
[2020-08-28] MEDS: LEVALBUTEROL 1.25 MG/0.5 ML CONCENTRATE NEB INH SCH ×7 (00:21→23:07)
[2020-08-28] MEDS: methylPREDNISolone 125MG 2ML VIAL IV SCH ×2 (02:08→08:26)
[2020-08-28 05:28] LABS: HEMATOCRIT 45.2 % (42.0-52.0); MEAN CORPUSCULAR HGB CONC 33.2 g/dl (32.0-36.5); MEAN CORPUSCULAR VOLUME 90.4 fl (80.0-96.0); PLATELET COUNT, AUTOMATED 203 10^3/uL (150-450); WHITE BLOOD COUNT 23.7 10^3/uL (4.0-10.0)
[2020-08-28 05:50] LABS: BLOOD UREA NITROGEN 27 MG/DL (7-18); CALCIUM LEVEL 8.4 MG/DL (8.8-10.2); CARBON DIOXIDE LEVEL 26 MEQ/L (21-32); CHLORIDE LEVEL 106 MEQ/L (98-107); CREATININE FOR GFR 0.73 MG/DL (0.70-1.30); GLOMERULAR FILTRATION RATE > 60.0 (>49); GLUCOSE, FASTING 121 MG/DL (70-100); POTASSIUM SERUM 3.7 MEQ/L (3.5-5.1); SODIUM LEVEL 139 MEQ/L (136-145)
[2020-08-28] MEDS: KCL 10MEQ IN D5/0.45NS 1000ML 1,000 ML IV SCH ×3 (05:53→23:50)
[2020-08-28] MEDS: ENOXAPARIN 40MG/0.4ML SYRINGE (J1650 PER 10MG) SC SCH (08:25)
[2020-08-28] MEDS: BACITRACIN OINTMENT 30GM TUBE TOP SCH ×2 (08:26→21:39)
[2020-08-28] MEDS: NICOTINE 14 MG/24 HR TRANSDERMAL TD SCH (08:26)
--- NOTE | 2020-08-28 09:32 | IPN ---
PROGRESS NOTE DATE: 08/28/2020 SUBJECTIVE: The patient remains n.p.o. awaiting feeding tube placement and repeat speech evaluation. He mistakenly ate a sandwich yesterday. The patient has had increasing mucous secretions to his trach and has not been taught how to do his self-suctioning. The patient does not have a fenestrated trach and unable to do a Passy-[place] valve. He currently is still n.p.o. on IV fluids awaiting feeding tube placement and repeat swallow evaluation to rule out recurrent aspiration. He has been started on moxifloxacin for left lower lobe pneumonia detected on CT chest. He is still on IV Solu-Medrol due to persistent wheezing, which has improved from admission. The patient currently complains of productive mucous through his tracheostomy, chest congestion, and difficulty breathing. No fever or chills overnight. OBJECTIVE: VITAL SIGNS: Temperature 98.7, pulse 69, respiratory rate 26, blood pressure 147/71, 96% trach collar 8 liters 35% FiO2. GENERAL: Cachectic, bitemporal wasting, disheveled appearing. HEENT: Poor dentition. CHEST: Severe mucous secretions through the trach currently being expectorated by the patient coughing at the bedside in mild distress. Ribs are exposed. Diminished breath sounds with coarse rhonchi and bilateral wheezing. Air entry is diminished. Prolonged expiration. HEART: S1, S2 sinus rhythm. ABDOMEN: Soft, nontender, and nondistended with positive bowel sounds. EXTREMITIES: No cyanosis, clubbing, or pitting edema. DIAGNOSTIC STUDIES: Laboratory data, imaging studies, and microbiology have been reviewed. ASSESSMENT: This is a 60-year-old FULL CODE active smoker with chronic obstructive pulmonary disease (COPD) not oxygen or steroid dependent admitted on 08/25/2020, with complaints of dysphagia, shortness of breath, sore throat, and wheezing. Treated as outpatient with prednisone taper and antibiotics. Returned with worsening distress and emergently brought to the OR due to acute airway obstruction. Active issues are as follows: 1. Acute hypoxic respiratory failure secondary to airway obstruction from laryngeal mass status post emergent tracheostomy and biopsy most likely laryngeal cancer. 2. Laryngeal mass most likely cancer. 3. Aspiration. 4. Left lower lobe pneumonia community-acquired. 5. Severe protein-calorie malnutrition with body mass index (BMI) of 14/cancer cachexia. 6. Acute on chronic COPD exacerbation. 7. Active tobacco abuse. 8. Malclearance of secretions. 9. Steroid-induced leukocytosis. PLAN: The patient is currently n.p.o. status, but mistakenly ate a sandwich yesterday brought in by dietary into the wrong room. He did not show signs of aspiration and has had no fever and no other symptoms of pneumonitis. He is currently being treated with moxifloxacin day #2 for left lower lobe pneumonia. He has been kept n.p.o. until repeat swallow evaluation today to rule out aspiration risk. The patient is status post tracheostomy and needs to be taught how to take care of his trach and how to self-suction. He does not have a fenestrated tracheostomy and unable to use a Passy-[place] valve at this time. Will defer that to ear, nose, and throat surgeon, Dr. Veloz. The patient is currently still on intravenous fluids for nutrition and hydration and will need a feeing tube if the patient is still aspirating. General surgeon, Dr. Dickinson, has been consulted with plans for a feeding tube placement today 08/28/2020. Manager Title has been consulted for tube feeding recommendations. The patient has been given a incentive spirometry and chest physiotherapy. Medical oncology to be consulted once the pathology report is finalized showing cancer of the larynx. Continue to monitor for worsening respiratory distress. Keep oxygen saturation above 90% at all times. Deep vein thrombosis (DVT) prophylaxis with Lovenox. Tobacco cessation counseling and nicotine patch. I have discontinued the patient's doxycycline given for COPD exacerbation as an anti-inflammatory medication now that he is on moxifloxacin for left lower lobe community-acquired pneumonia. The patient does not have a health care proxy. He is unable to read and write, but he can sign his signature. PFS has been consulted to assist in health care proxy forms.
--- NOTE | 2020-08-28 09:52 | REP ---
INDICATION: pneumomediastinum check resolution or worsening COMPARISON: 08/27/2020 TECHNIQUE: PA and lateral. FINDINGS: There appears to be mild improvement to the pneumomediastinum and subcutaneous emphysema. No pneumothorax. Small basilar pleural effusions and subtle opacity in the left mid lung zone again noted. Tracheostomy overlies the airway. Mediastinal structures and cardiac silhouette are within normal limits and stable. IMPRESSION: 1. Mild improvement to subcutaneous emphysema and pneumomediastinum. 2. Stable small pleural effusions and left mid lung opacity. <Electronically signed by Daniel Issa > 08/28/20 0949
--- NOTE | 2020-08-28 10:11 | IPNPDOC ---
Subjective Date Seen The patient was seen on 08/28/20. Subjective Chief Complaint/HPI Obstructing laryngeal mass Events since last encounter Raymond continues to do well post awake tracheostomy and laryngeal biopsy. He is postop day 3. Yesterday he was mistakenly given some food and apparently was able to swallow without too much difficulty. He has a bedside swallowing evaluation due today. But should remain n.p.o. pending that. Pathology still pending. White count remains elevated. Is being treated for possible pneumonia. Objective Physical Examination Other physical findings Raymond is resting comfortably in bed trach site looks normal with no evidence of infection or bleeding. No palpable subcutaneous emphysema. Assessment /Plan Assessment Will plan to change trach to a fenestrated tube which may help him with communication. Without a balloon in place his swallowing may be slightly improved. White count remains elevated could well be community-acquired pneumonia. He is being treated with antibiotics for this. Pathology is still pending. Agree with his bedside swallowing evaluation today. Should probably proceed with feeding tube placement as his treatment will certainly worsen his ability to swallow. In addition patient's doing much better if they can improve the nutritional status prior to treatment. Oncology consult is also pending. Plan/VTE VTE Prophylaxis Ordered?: No VS, I&O, 24H, Fishbone Vital Signs/I&O Vital Signs Date Time Temp Pulse Resp B/P (MAP) Pulse Ox O2 Delivery O2 Flow Rate FiO2 08/28/20 08:00 5.0 28 08/28/20 08:00 98.7 69 26 147/71 (96) 96 Trach Collar I&O- Last 24 Hours up to 6 AM 08/28/20 05:59 Intake Total 1200 ml Output Total 1400 ml Balance -200 ml Laboratory Data 24H LABS Laboratory Tests 2 08/28/20 05:12: Nucleated Red Blood Cells % (auto) 0.0, Anion Gap 7L, Glomerular Filtration Rate > 60.0, Calcium Level 8.4L CBC/BMP Laboratory Tests 08/28/20 05:12 Microbiology Microbiology 08/25/20 Blood Culture - Preliminary, Resulted No Growth after 48 hours. All Specime... 08/25/20 Blood Culture - Preliminary, Resulted No Growth after 48 hours. All Specime... Dale Veloz MD Aug 28, 2020 10:11
[2020-08-28] MEDS ORDERED: OXYMETAZOLINE 0.05% NASAL SPRAY (AFRIN) ONE (11:00)
[2020-08-28] MEDS: MOXIFLOXACIN HCL 400 MG in IV 1 EA IV SCH (12:49)
--- NOTE | 2020-08-28 16:27 | IPNPDOC ---
Date Seen The patient was seen on 08/28/20. Progress Note LOST IV ACCESS PLAN: -SURGERY DR MOSLEY TO SCHEDULE FEEDING TUBE PLACEMENT. -PER SPEECH THERAPIST, ASPIRATION NOTED AND RECOMMENDED CONTINUED NPO STATUS -PER PHARMACY, OK TO GIVE IM SOLUMEDROL TEMPORARILY. PT HAS PCN ALLERGY,AND PT CANNOT TAKE PO AVELOX. THEREFORE, CONSIDER LIDOCAINE TO BE GIVEN PRIOR TO IM CEFTRIAXONE 2 GRAMS IN AM IF PICC LINE IS DELAYED. -ONCE PICC LINE IS PLACED, PT CAN BE RESUMED ON IV AVELOX AND IV SOLUMEDROL PREVIOUSLY ORDERED. -TUBE FEEDINGS TO START ONCE FEEDING TUBE IS PLACED. VS, I&O, 24H, Fishbone Vital Signs/I&O Vital Signs Date Time Temp Pulse Resp B/P (MAP) Pulse Ox O2 Delivery O2 Flow Rate FiO2 08/28/20 16:00 98.1 67 20 123/60 (81) 100 Trach Collar 8.0 35 I&O- Last 24 Hours up to 6 AM 08/28/20 06:00 Intake Total 1200 ml Output Total 1400 ml Balance -200 ml Laboratory Data 24H LABS Laboratory Tests 2 08/28/20 05:12: Nucleated Red Blood Cells % (auto) 0.0, Anion Gap 7L, Glomerular Filtration Rate > 60.0, Calcium Level 8.4L CBC/BMP Laboratory Tests 08/28/20 05:12 Microbiology Microbiology 08/25/20 Blood Culture - Preliminary, Resulted No Growth after 72 hours. All specime... 08/25/20 Blood Culture - Preliminary, Resulted No Growth after 72 hours. All specime... ARMANDO GRAY MD Aug 28, 2020 16:27
[2020-08-28] MEDS: methylPREDNISolone 125MG 2ML VIAL IM SCH (18:18)
[2020-08-29] VITALS (20 sets, daily range): BP systolic 114–146; BP diastolic 57–65; O2SAT 88–100
[2020-08-29] MEDS: methylPREDNISolone 125MG 2ML VIAL IM SCH ×2 (00:39→06:17)
[2020-08-29] MEDS: LEVALBUTEROL 1.25 MG/0.5 ML CONCENTRATE NEB INH SCH ×6 (02:48→23:13)
[2020-08-29 05:27] LABS: HEMATOCRIT 44.6 % (42.0-52.0); HEMOGLOBIN 14.6 g/dl (13.5-17.5); MEAN CORPUSCULAR HEMOGLOBIN 29.4 pg (27.0-33.0); MEAN CORPUSCULAR HGB CONC 32.7 g/dl (32.0-36.5); MEAN CORPUSCULAR VOLUME 89.7 fl (80.0-96.0); PLATELET COUNT, AUTOMATED 209 10^3/uL (150-450); RED BLOOD COUNT 4.97 10^6/uL (4.30-6.10); WHITE BLOOD COUNT 24.4 10^3/uL (4.0-10.0)
[2020-08-29 05:53] LABS: BLOOD UREA NITROGEN 25 MG/DL (7-18); CALCIUM LEVEL 8.5 MG/DL (8.8-10.2); CARBON DIOXIDE LEVEL 29 MEQ/L (21-32); CHLORIDE LEVEL 103 MEQ/L (98-107); CREATININE FOR GFR 0.67 MG/DL (0.70-1.30); GLOMERULAR FILTRATION RATE > 60.0 (>49); GLUCOSE, FASTING 95 MG/DL (70-100); POTASSIUM SERUM 4.1 MEQ/L (3.5-5.1); SODIUM LEVEL 139 MEQ/L (136-145)
--- NOTE | 2020-08-29 07:08 | CR ---
CONSULTATION DATE: 08/28/2020 REASON FOR CONSULTATION: Difficulty swallowing secondary to glottic mass. HISTORY OF PRESENT ILLNESS: The patient is a 60-year-old smoker with known COPD who was seen in the emergency department on the 19 of August with some complaints of a sore throat and shortness of breath. He returned again on the 25 of August with a worsening sore throat and some difficulty breathing and wheezing. He was noted o have some mild respiratory distress. A CT scan of the neck showed a soft tissue mass effect in and about the level of the glottis consistent with neoplasm. Consultation was requested from Dr. Veloz of ENT and a laryngoscopy was done, confirming a mass. He was brought to the operating room where he underwent an emergency tracheotomy. The patient is clearly significantly underweight and reports a weight loss of perhaps 20 lb. He apparently is having trouble swallowing and underwent a speech therapy evaluation today which according to the nursing staff showed that he did poorly with aspiration. I have been requested to consider placement of a gastrostomy tube for nutritional support. MEDICATIONS PRIOR TO ADMISSION: 1. Prednisone 20 mg p.o. daily. 2. Albuterol inhaler as needed for shortness of breath. ALLERGIES: PENICILLINS. His record would suggest he has no primary care provider. PAST SURGICAL HISTORY: Negative other than an inguinal hernia some years ago. PAST MEDICAL HISTORY: Significant primarily for his past smoking history with some chronic obstructive pulmonary disease. FAMILY HISTORY: Noncontributory. REVIEW OF SYSTEMS: As reported by the hospitalist. PHYSICAL EXAMINATION: General: Reveals a quite thin man sitting up in the hospital bed. He appears older than his stated age of 60 years. He has a recent tracheostomy tube in place. He is alert and appeared to respond appropriately. He cannot talk because of the trach but is able to mouth words at me in response to my questions. Skin: Warm and dry. Heart: Heart exam shows a regular rhythm. Lungs: Show distant breath sounds and very prominent ribs bilaterally. Abdomen: Quite thin and even scaphoid. Soft without appreciable mass. LABORATORY STUDIES: Show a white count today of 24,000 with a hemoglobin of 15, hematocrit of 45 and 203,000 platelets. Chemistry profile shows normal electrolytes with a BUN of 27, creatinine 0.7 and a glucose of 121. A coagulation profile at the time of admission was normal. His COVID serology was negative. He had some blood cultures that showed no growth so far. He has had several x-rays and a CT scan of the abdomen and pelvis during this hospital stay. He developed some apparently quite significant pneumomediastinum and subcutaneous and intramuscular air after his trach. 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 IMPRESSION: The patient is a 60-year-old man with a squamous cell carcinoma of the larynx with a new urgently placed tracheostomy due to obstructive symptoms. He is having swallowing difficulties and has lost weight and appears quite underweight at this time. I was asked to evaluate the patient for a gastrostomy. PLAN: I discussed with the patient the possibility of attempting a percutaneous endoscopic gastrostomy. I advised him that this would depend on my ability to insert the endoscope past the mass in his throat and down into the stomach. I advised him that if this is not possible, then we would need to plan on an open or laparoscopic insertion of a feeding tube into the stomach. He appears to understand the need for the feeding tube. Risks of the procedure were discussed with him. I advised him that I will need to get him added into the OR schedule for this and this may take a day or two. JOSE
--- NOTE | 2020-08-29 08:44 | REP ---
INDICATION: pneumomediastinum check resolution or worsening COMPARISON: 08/28/2020 TECHNIQUE: PA and lateral. FINDINGS: Pneumomediastinum and subcutaneous emphysema appears improved. Cardiac silhouette is normal/stable. Tracheostomy in stable position overlying the airway. Lung adler are unchanged with suspected small pleural effusions and small focus of opacity in the left mid lung zone. IMPRESSION: 1. Improved/decreased subcutaneous emphysema and pneumomediastinum. 2. Small pleural effusions along with small area of opacity in the left mid lung zone again noted. <Electronically signed by Daniel Issa > 08/29/20 0834
[2020-08-29] MEDS ORDERED: cefTRIAXone SOD 2 GM VIAL (J0696 PER 250MG) IM ONE (09:00)
[2020-08-29] MEDS ORDERED: LIDOCAINE 1% SDV 5ML VIAL DILUENT ONE (09:00)
[2020-08-29] MEDS: BACITRACIN OINTMENT 30GM TUBE TOP SCH ×2 (09:01→20:58)
[2020-08-29] MEDS: NICOTINE 14 MG/24 HR TRANSDERMAL TD SCH (09:01)
[2020-08-29] MEDS ORDERED: LIDOCAINE 1% MDV 20ML VIAL As Ordered ONE (10:07)
--- NOTE | 2020-08-29 10:47 | IPNPDOC ---
Text Note Date of Service The patient was seen on 08/29/20. NOTE Subjective: Patient is a 60 year old male with a PMHx of COPD, Active smoker who presented to the ER with SOB / wheezing / difficulty swallowing. Patient was admitted to the hospital service for further evaluation and treatment and was emergently taken for tracheostomy placement with Dr. Veloz of ENT. Patient was seen and examined at the bedside. Currently, he has a tracheostomy in place. He denies any chest pain, short of breath. Does report a cough and is able to clear secretions. Denies any headache, abdominal pain, diarrhea, or urinary discomfort. Surgery has evaluated him yesterday with plans for PEG tube placement likely tomorrow. Objective: Vitals (See below) General: Lying in bed, no acute distress, comfortable, AAOx3 HEENT: NC, AT, + Trach CVS: RRR, +S1S2 Lungs: Fair air entry b/l, -w/r/r Abdomen: Soft, ND, NT Extremities: - Edema, - Calf tenderness Imaging: CXR 08/25: No acute cardiopulmonary process appreciated. Neck XR 08/25: Soft tissue mass effect in and about the level of the glottis consistent with laryngeal neoplasm. Asymmetric calcification of the arytenoid cartilage on the left. Mild distention of the hypopharynx and suggestion of airway narrowing at the level of the glottis. 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 CXR 08/25: 1. Recently placed tracheostomy with extensive subcutaneous emphysema and suspected pneumomediastinum. CT abdomen / pelvis 08/26: 1. Examination is significantly limited due to lack of oral/IV contrast and lack of intrinsic contrast due to low BMI. 2. Elements of irregular gas as described above likely related to pneumomediastinum and tracking into the extraperitoneal spaces of the abdomen and pelvis. Less likely intraperitoneal gas related to bowel perforation. 3. No obvious acute abdominopelvic pathology appreciated. CT chest 08/26: 1. Tracheostomy appears to be in satisfactory position. 2. Extensive subcutaneous emphysema and pneumomediastinum. 3. Very subtle/early left lower lobe infiltrate. CXR 08/29: 1. Improved/decreased subcutaneous emphysema and pneumomediastinum. 2. Small pleural effusions along with small area of opacity in the left mid lung zone again noted. Assessment and plan: Acute hypoxic respiratory failure - likely 2/2 airway obstruction 2/2 laryngeal mass - Supplemental oxygen requirement has improved - c/p Tracheostomy on 08/25 with ENT, Dr. Veloz - c/w Trach care Laryngeal mass - likely 2/2 malignancy - Biopsy 08/25: Squamous cell carcinoma, moderately differentiated - Patient will need outpatient follow up with Oncology for continued therapy Aspiration - Speech therapy has recommended strict NPO - Will have PEG tube placed; likely tomorrow - General surgery on consultation; appreciate their input Pneumonia - possibly 2/2 aspiration - Currently has had a productive cough - Remains hemodynamically stable and afebrile - Imaging with evidence of infiltrate at RLL - c/w Moxifloxacin (Ceftriaxone while no IV access) Severe protein-calorie malnutrition - 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 - BMI of 14 Acute on chronic COPD exacerbation - No evidence of wheezing this morning - c/w Solumedrol; will reduce frequency - c/w Inhaled therapy as ordered Active tobacco abuse - Advised smoking cessation - c/w Nicotine patch Leukocytosis - likely 2/2 corticosteroids - c/w antibiotics (see above) GI prophylaxis - c/w DVT prophylaxis - c/w Lovenox Disposition: - Awaiting PEG tube VS,Fishbone, I+O VS, Fishbone, I+O Laboratory Tests 08/29/20 05:01 Vital Signs Date Time Temp Pulse Resp B/P (MAP) Pulse Ox O2 Delivery O2 Flow Rate FiO2 08/29/20 08:00 5.0 28 08/29/20 08:00 98.1 95 18 134/64 (87) 88 Trach Collar I&O- Last 24 Hours up to 6 AM 08/29/20 06:00 Intake Total 525 ml Output Total 1250 ml Balance -725 ml GARIMA WRIGHT MD Aug 29, 2020 10:47
[2020-08-29] MEDS: ENOXAPARIN 40MG/0.4ML SYRINGE (J1650 PER 10MG) SC SCH (11:31)
[2020-08-29] MEDS: KCL 10MEQ IN D5/0.45NS 1000ML 1,000 ML IV SCH (11:32)
--- NOTE | 2020-08-29 12:55 | IPNPDOC ---
Subjective Date Seen The patient was seen on 08/29/20. Subjective Chief Complaint/HPI Obstructing laryngeal mass Events since last encounter Raymond is postop day 4 status post awake tracheostomy and laryngeal biopsy. He also had a lesion on his left submandibular skin that was biopsied. His pathology has demonstrated squamous cell carcinoma of the larynx. Given the bilateral vocal cord palsy I think he is at least a T3. The skin lesion is basal cell carcinoma. Speech pathology did bedside swallowing eval which she failed. He is remaining n.p.o. General surgery is seeing him out a G-tube placement. White count remains elevated. Objective Physical Examination Other physical findings Raymond is resting comfortably in no distress is endotracheal tubes in good position. Assessment /Plan Assessment Squamous cell carcinoma of the larynx. Basal cell carcinoma left submandibular skin. We will do his first trach change on . Continue with trach teaching from respiratory therapy. Plan/VTE VTE Prophylaxis Ordered?: No VS, I&O, 24H, Fishbone Vital Signs/I&O Vital Signs Date Time Temp Pulse Resp B/P (MAP) Pulse Ox O2 Delivery O2 Flow Rate FiO2 08/29/20 12:00 97.5 77 18 117/57 (77) 93 Trach Collar 5.0 28 I&O- Last 24 Hours up to 6 AM 08/29/20 05:59 Intake Total 725 ml Output Total 1000 ml Balance -275 ml Laboratory Data 24H LABS Laboratory Tests 2 08/29/20 05:01: Nucleated Red Blood Cells % (auto) 0.0, Anion Gap 7L, Glomerular Filtration Rate > 60.0, Calcium Level 8.5L CBC/BMP Laboratory Tests 08/29/20 05:01 Microbiology Microbiology 08/25/20 Blood Culture - Preliminary, Resulted No Growth after 72 hours. All specime... 08/25/20 Blood Culture - Preliminary, Resulted No Growth after 72 hours. All specime... Dale Veloz MD Aug 29, 2020 12:55
[2020-08-29] MEDS: MOXIFLOXACIN HCL 400 MG in IV 1 EA IV SCH (13:02)
[2020-08-29] MEDS: methylPREDNISolone 125MG 2ML VIAL IV SCH ×3 (13:03→20:57)
--- NOTE | 2020-08-29 17:15 | REP ---
INDICATION: POOR IV ACCESS. COMPARISON: None. TECHNIQUE: The procedure was performed under the direct supervision of Dr. Varner. The risks and benefits of the procedure were explained to the patient and informed consent was obtained. The right basilic vein was localized using ultrasound guidance. The skin was prepped and draped in a sterile fashion. 1 mL of 1% lidocaine was used as a local anesthetic. Using ultrasound guidance the basilic vein was cannulated and a 0.018 guidewire was inserted and advanced to the SVC using fluoroscopic guidance, and last image hold technology. The needle was removed and a 5 [place] dilator and peel-away sheath was inserted over the guide wire. A 5 [place] dual lumen catheter was cut to length of 43 cm. The dilator was removed and the catheter was inserted over the guide wire with the tip ending in the SVC. The peel-away sheath was removed and the catheter was flushed with heparinized saline as per Hospital protocol. The catheter was affixed to the skin and a sterile dressing was applied. Estimated blood loss: Less than 1 cc The patient tolerated the procedure well and there were no immediate complications. 0.1 minutes of fluoro time was utilized for this procedure. FINDINGS: None IMPRESSION: PICC line insertion right basilic vein with the tip ending in the SVC. <Electronically signed by Rodney Orr > 08/29/20 1701 <Electronically signed by Ten Varner > 08/29/20 171
[2020-08-29] MEDS ORDERED: SODIUM CHLORIDE 0.9% INJ 10 ML SYR IV PRN (17:40)
[2020-08-29] MEDS: SCOPOLAMINE 1MG TRANSDERMAL PATCH TOP SCH (17:57)
[2020-08-29] MEDS ORDERED: FAT EMULSION IV 20% 500 ML IV SCH (18:00)
[2020-08-29] MEDS ORDERED: AMINO AC/ELECTROLYTE/DEX/CALC 2,000 ML IV SCH (18:00)
[2020-08-29] MEDS: SODIUM CHLORIDE 0.9% INJ 10 ML SYR IV SCH (18:28)
[2020-08-30] VITALS (20 sets, daily range): BP systolic 118–140; BP diastolic 57–75; O2SAT 93–99
[2020-08-30] MEDS: methylPREDNISolone 125MG 2ML VIAL IV SCH ×2 (02:40→09:02)
[2020-08-30] MEDS: LEVALBUTEROL 1.25 MG/0.5 ML CONCENTRATE NEB INH SCH ×6 (04:05→23:38)
[2020-08-30] MEDS: SODIUM CHLORIDE 0.9% INJ 10 ML SYR IV SCH ×2 (05:09→18:29)
[2020-08-30 05:42] LABS: HEMATOCRIT 42.2 % (42.0-52.0); HEMOGLOBIN 14.2 g/dl (13.5-17.5); MEAN CORPUSCULAR HEMOGLOBIN 30.1 pg (27.0-33.0); MEAN CORPUSCULAR HGB CONC 33.6 g/dl (32.0-36.5); MEAN CORPUSCULAR VOLUME 89.6 fl (80.0-96.0); PLATELET COUNT, AUTOMATED 236 10^3/uL (150-450); RED BLOOD COUNT 4.71 10^6/uL (4.30-6.10); WHITE BLOOD COUNT 26.2 10^3/uL (4.0-10.0)
[2020-08-30 06:07] LABS: BLOOD UREA NITROGEN 26 MG/DL (7-18); CALCIUM LEVEL 8.3 MG/DL (8.8-10.2); CARBON DIOXIDE LEVEL 27 MEQ/L (21-32); CHLORIDE LEVEL 103 MEQ/L (98-107); CREATININE FOR GFR 0.67 MG/DL (0.70-1.30); GLOMERULAR FILTRATION RATE > 60.0 (>49); GLUCOSE, FASTING 135 MG/DL (70-100); POTASSIUM SERUM 3.7 MEQ/L (3.5-5.1); SODIUM LEVEL 139 MEQ/L (136-145)
--- NOTE | 2020-08-30 08:48 | REP ---
INDICATION: pneumomediastinum check resolution or worsening COMPARISON: 08/29/2020 TECHNIQUE: PA and lateral. FINDINGS: Endotracheal tube in satisfactory stable position. Subcutaneous emphysema appears improved. A miniscule trace amount of mediastinal gas is identified and improved as well. The lung adler again demonstrate blunted costophrenic angles suggesting small pleural reactions and a small focus of opacity in the left mid lung zone unchanged. No new acute process appreciated. Cardiac silhouette is stable/normal. PICC line in stable position within the SVC. IMPRESSION: 1. Decreased subcutaneous and mediastinal gas. 2. No change in the costophrenic blunting suggesting small pleural reactions. 3. Density in the left mid lung zone may warrant short-term 3 month follow-up CT. <Electronically signed by Daniel Issa > 08/30/20 0850
[2020-08-30] MEDS: NICOTINE 14 MG/24 HR TRANSDERMAL TD SCH (09:01)
[2020-08-30] MEDS: ENOXAPARIN 40MG/0.4ML SYRINGE (J1650 PER 10MG) SC SCH (09:01)
[2020-08-30] MEDS: BACITRACIN OINTMENT 30GM TUBE TOP SCH ×2 (09:02→21:59)
--- NOTE | 2020-08-30 10:04 | IPNPDOC ---
Text Note Date of Service The patient was seen on 08/30/20. NOTE Subjective: Patient is a 60 year old male with a PMHx of COPD, Active smoker who presented to the ER with SOB / wheezing / difficulty swallowing. Patient was admitted to the hospital service for further evaluation and treatment and was emergently taken for tracheostomy placement with Dr. Veloz of ENT. Patient was seen and examined at the bedside. Patient denies any chest pain, shortness breath, palpitations. He has been tolerating TPN nutrition after the PICC line was placed yesterday. The plan is for PEG tube insertion. Either today or tomorrow based on surgery scheduled. Patient has no concerns or questions at this time. Objective: Vitals (See below) General: Patient sitting up in bed, appears comfortable, not in any acute distress, awake, alert, oriented 3 HEENT: Normocephalic and atraumatic, + Trach CVS: +S1S2 Lungs: Fair air entry b/l, auscultation does not reveal any significant wheezing, rales or rhonchi Abdomen: Soft, nondistended, nontender Extremities: Lower extremities are without any edema Imaging: CXR 08/25: No acute cardiopulmonary process appreciated. Neck XR 08/25: Soft tissue mass effect in and about the level of the glottis consistent with laryngeal neoplasm. Asymmetric calcification of the arytenoid cartilage on the left. Mild distention of the hypopharynx and suggestion of airway narrowing at the level of the glottis. 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 CXR 08/25: 1. Recently placed tracheostomy with extensive subcutaneous emphysema and suspected pneumomediastinum. CT abdomen / pelvis 08/26: 1. Examination is significantly limited due to lack of oral/IV contrast and lack of intrinsic contrast due to low BMI. 2. Elements of irregular gas as described above likely related to pneumomediastinum and tracking into the extraperitoneal spaces of the abdomen and pelvis. Less likely intraperitoneal gas related to bowel perforation. 3. No obvious acute abdominopelvic pathology appreciated. CT chest 08/26: 1. Tracheostomy appears to be in satisfactory position. 2. Extensive subcutaneous emphysema and pneumomediastinum. 3. Very subtle/early left lower lobe infiltrate. CXR 08/29: 1. Improved/decreased subcutaneous emphysema and pneumomediastinum. 2. Small pleural effusions along with small area of opacity in the left mid lung zone again noted. CXR 08/30: 1. Decreased subcutaneous and mediastinal gas. 2. No change in the costophrenic blunting suggesting small pleural reactions. 3. Density in the left mid lung zone may warrant short-term 3 month follow-up CT. Assessment and plan: Acute hypoxic respiratory failure - likely 2/2 airway obstruction 2/2 laryngeal mass - Supplemental oxygen requirement has improved - c/p Tracheostomy on 08/25 with ENT, Dr. Veloz - c/w Trach care Laryngeal mass - likely 2/2 malignancy - Biopsy 08/25: Squamous cell carcinoma, moderately differentiated - Patient will need outpatient follow up with Oncology for continued therapy Aspiration - Speech therapy has recommended strict NPO - Will have PEG tube placed (either today or tomorrow) - c/w TPN nutrition for now - General surgery on consultation; appreciate their input Leukocytosis - possibly 2/2 corticosteroids, less likely 2/2 PNA - Clinically has had improvement - No fevers noted - Will trend CRP - Will reduce corticosteroid dose / frequency Pneumonia - possibly 2/2 aspiration - Currently has had a productive cough - Remains hemodynamically stable and afebrile - Imaging with evidence of infiltrate at RLL - c/w Moxifloxacin (Day #4) Severe protein-calorie malnutrition - 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 - BMI of 14 Acute on chronic COPD exacerbation - No evidence of wheezing this morning - c/w Solumedrol; dose and frequency will be reduced today - c/w Inhaled therapy as ordered Active tobacco abuse - Advised smoking cessation - c/w Nicotine patch DVT prophylaxis - c/w Lovenox Disposition: - Awaiting PEG tube VS,[place], I+O VS, Fishbone, I+O Laboratory Tests 08/30/20 05:12 Vital Signs Date Time Temp Pulse Resp B/P (MAP) Pulse Ox O2 Delivery O2 Flow Rate FiO2 08/30/20 08:00 97.5 74 18 118/57 (77) 96 Trach Collar 5.0 28 I&O- Last 24 Hours up to 6 AM 08/30/20 06:00 Intake Total 1500 ml Output Total 1500 ml Balance 0 ml GARIMA WRIGHT MD Aug 30, 2020 10:04
[2020-08-30 10:19] LABS: C REACTIVE PROTEIN QUANTITATIV 0.75 MG/DL (0.00-0.30)
[2020-08-30] MEDS: MOXIFLOXACIN HCL 400 MG in IV 1 EA IV SCH (11:23)
[2020-08-30] MEDS ORDERED: MIDAZOLAM INJ 2MG/2ML VIAL (J2250 PER 1MG) As Ordered ONE (14:40)
[2020-08-30] MEDS ORDERED: ETOMIDATE INJ 20MG/10ML VIAL As Ordered ONE (14:40)
[2020-08-30] MEDS ORDERED: propofoL 200 MG/20 ML VIAL As Ordered ONE (14:40)
[2020-08-30] MEDS ORDERED: fentaNYL 100 MCG/2 ML INJECTION (J3010) As Ordered ONE (14:40)
[2020-08-30] MEDS ORDERED: fentaNYL 100 MCG/2 ML INJECTION (J3010) IV PRN (15:30)
[2020-08-30] MEDS ORDERED: LR 1,000 ML IV SCH (15:30)
[2020-08-30] MEDS ORDERED: ONDANSETRON 4MG/2ML VIAL IV PRN (15:30)
--- NOTE | 2020-08-30 15:53 | ROOR ---
Patient Name: Raymond Brizuela Procedure Date: 08/30/2020 1:40 PM Date of : 1960 Age: 60 Room: Main OR Gender: Male Note Status: Finalized Procedure: Upper GI endoscopy Indications: Therapeutic procedure, Place PEG due to impaired swallowing Providers: Rafael Dickinson MD Referring MD: Yvette Augustin MD Requesting Provider: Yvette Augustin MD Medicines: Monitored Anesthesia Care Complications: No immediate complications. Procedure: Pre-Anesthesia Assessment: - Prior to the procedure, a History and Physical was performed, and patient medications and allergies were reviewed. The patient is competent. The risks and benefits of the procedure and the sedation options and risks were discussed with the patient. All questions were answered and informed consent was obtained. Patient identification and proposed procedure were verified by the physician, the nurse and the mule packer in the pre-procedure area. Mental Status Examination: alert and oriented. Prophylactic Antibiotics: The patient requires prophylactic antibiotics for planned PEG placement. The patient received antibiotic therapy today, before the procedure started. Prior Anticoagulants: The patient has taken Lovenox (enoxaparin), last dose was day of procedure. ASA Grade Assessment: III - A patient with severe systemic disease. After reviewing the risks and benefits, the patient was deemed in satisfactory condition to undergo the procedure. The anesthesia plan was to use monitored anesthesia care (MAC). Immediately prior to administration of medications, the patient was re-assessed for adequacy to receive sedatives. The heart rate, respiratory rate, oxygen saturations, blood pressure, adequacy of pulmonary ventilation, and response to care were monitored throughout the procedure. The physical status of the patient was re-assessed after the procedure. The Endoscope was introduced through the mouth, and advanced to the second part of duodenum. The upper GI endoscopy was accomplished without difficulty. The patient tolerated the procedure well. Findings: The examined esophagus was normal. A small hiatal hernia was present. The entire examined stomach was normal. The patient was placed in the supine position for PEG placement. The stomach was insufflated to appose gastric and abdominal swift. A site was located in the body of the stomach with excellent transillumination and manual external pressure for placement. The abdominal wall was marked and prepped in a sterile manner. The area was anesthetized with 5 mL of 1% lidocaine. The trocar needle was introduced through the abdominal wall and into the stomach under direct endoscopic view. A snare was introduced through the endoscope and opened in the gastric lumen. The guide wire was passed through the trocar and into the open snare. The snare was closed around the guide wire. The endoscope and snare were removed, pulling the wire out through the mouth. A skin incision was made at the site of needle insertion. The externally removable 20 Fr Jag-Cook gastrostomy tube was lubricated. The G-tube was passed over the guide wire through the mouth, and into the stomach. The trocar needle was removed, and the gastrostomy tube was pulled out from the stomach through the skin. The guide wire was removed, and the external bumper attached to the gastrostomy tube. The feeding tube was then cut to an appropriate length. The final position of the gastrostomy tube was confirmed by relook endoscopy, and skin marking noted to be 2 cm at the external bumper. The final tension and compression of the abdominal wall by the PEG tube and external bumper were checked and revealed that the bumper was loose and lightly touching the skin and that the PEG balloon was loose and lightly touching the stomach. The feeding tube was capped, and the tube site was cleaned and dressed. The ampulla, first portion of the duodenum and second portion of the duodenum were normal. Impression: - Normal esophagus. - Small hiatal hernia. - Normal stomach. - Normal ampulla, first portion of the duodenum and second portion of the duodenum. - An externally removable PEG placement was successfully completed. - No specimens collected. Recommendation: - Return patient to [facility] for [facility] care. Procedure Code(s): --- Professional --- 81211, Esophagogastroduodenoscopy, flexible, transoral; with directed placement of percutaneous gastrostomy tube Diagnosis Code(s): --- Professional --- K44.9, Diaphragmatic hernia without obstruction or gangrene R13.10, Dysphagia, unspecified Z43.1, Encounter for attention to gastrostomy CPT copyright 2019 [employer] [place] [employer]. All rights reserved. The codes documented in this report are preliminary and upon physician coder review may be revised to meet current compliance requirements. Rafael Dickinson MD Rafael Dickinson MD 08/30/2020 3:53:38 PM Electronically signed by Rafael Dickinson MD Number of Addenda: 0 Note Initiated On: 08/30/2020 1:40 PM Estimated Blood Loss: Estimated blood loss was minimal.
[2020-08-30] MEDS ORDERED: AMINO AC/ELECTROLYTE/DEX/CALC 2,000 ML IV SCH (18:00)
[2020-08-30] MEDS: HumaLOG INSULIN (NovoLOG) PER UNIT SC SCH (18:00)
[2020-08-30] MEDS ORDERED: FAT EMULSION IV 20% 500 ML IV SCH (18:00)
[2020-08-30] MEDS ORDERED: methylPREDNISolone 40MG 1ML VIAL IV SCH (21:00)
[2020-08-31] VITALS: BP 129/66
[2020-08-31] MEDS: LEVALBUTEROL 1.25 MG/0.5 ML CONCENTRATE NEB INH SCH ×6 (02:39→23:25)
[2020-08-31 04:00] VITALS: BP 122/57
[2020-08-31 05:53] LABS: BASO # 0.1 10^3/uL (0.0-0.2); BASO % 0.2 % (0.0-1.0); HEMATOCRIT 47.3 % (42.0-52.0); HEMOGLOBIN 15.8 g/dl (13.5-17.5); LYMPH # 0.6 10^3/uL (1.5-5.0); LYMPH % 2.5 % (24.0-44.0); MEAN CORPUSCULAR HEMOGLOBIN 30.1 pg (27.0-33.0); MEAN CORPUSCULAR HGB CONC 33.4 g/dl (32.0-36.5); MEAN CORPUSCULAR VOLUME 90.1 fl (80.0-96.0); MONO % 4.5 % (2.0-8.0); NEUTROPHILS # 20.7 10^3/uL (1.5-8.5); NEUTROPHILS % 91.3 % (36.0-66.0); PLATELET COUNT, AUTOMATED 219 10^3/uL (150-450); RED BLOOD COUNT 5.25 10^6/uL (4.30-6.10); WHITE BLOOD COUNT 22.7 10^3/uL (4.0-10.0)
[2020-08-31] MEDS: HumaLOG INSULIN (NovoLOG) PER UNIT SC SCH ×5 (06:00→23:13)
[2020-08-31] MEDS: SODIUM CHLORIDE 0.9% INJ 10 ML SYR IV SCH ×2 (06:09→18:54)
[2020-08-31 06:26] LABS: ALBUMIN 2.6 GM/DL (3.2-5.2); ALT/SGPT 67 U/L (12-78); BILIRUBIN,TOTAL 0.4 MG/DL (0.2-1.0); BLOOD UREA NITROGEN 31 MG/DL (7-18); CALCIUM LEVEL 8.4 MG/DL (8.8-10.2); CARBON DIOXIDE LEVEL 28 MEQ/L (21-32); CHLORIDE LEVEL 103 MEQ/L (98-107); CREATININE FOR GFR 0.67 MG/DL (0.70-1.30); GLOMERULAR FILTRATION RATE > 60.0 (>49); GLUCOSE, FASTING 125 MG/DL (70-100); MAGNESIUM LEVEL 2.2 MG/DL (1.8-2.4); POTASSIUM SERUM 4.3 MEQ/L (3.5-5.1); SODIUM LEVEL 139 MEQ/L (136-145); TOTAL PROTEIN 5.6 GM/DL (6.4-8.2)
[2020-08-31 07:41] VITALS: BP 119/56
--- NOTE | 2020-08-31 08:31 | REP ---
INDICATION: pneumomediastinum check resolution or worsening COMPARISON: 08/30/2020 TECHNIQUE: PA and lateral. FINDINGS: Subcutaneous emphysema appears slightly improved. Pneumomediastinum has resolved. Tracheostomy in stable position over the airway. Lung adler are relatively clear. Stable blunting to the diaphragmatic surfaces and costophrenic angles unchanged and possibly chronic. IMPRESSION: 1. Decreased subcutaneous emphysema at the thoracic inlet. Pneumomediastinum resolved. 2. No new acute pleuroparenchymal process appreciated. <Electronically signed by Daniel Issa > 08/31/20 [id number]
--- NOTE | 2020-08-31 10:03 | IPNPDOC ---
Text Note Date of Service The patient was seen on 08/31/20. NOTE Subjective: Patient is a 60 year old male with a PMHx of COPD, Active smoker who presented to the ER with SOB / wheezing / difficulty swallowing. Patient was admitted to the hospital service for further evaluation and treatment and was emergently taken for tracheostomy placement with Dr. Veloz of ENT. Patient was seen and examined at the bedside. Currently patient denies any chest pain, shortness breath, palpitations, nausea, vomiting, reports some abdominal soreness around the site of the PEG tube. Denies any diarrhea, or urinary discomfort. Objective: Vitals (See below) General: Patient is sitting up in bed, appears to be comfortable without any acute distress. Reports he's experiencing some pain around his PEG tube site is awake, alert HEENT: Tracheostomy in place CVS: +S1S2 Lungs: Auscultation is fair bilaterally without any appreciated, rhonchi, crackles or wheezing Abdomen: Remains soft without any distention or tenderness. + PEG tube Extremities: No edema Imaging: CXR 08/25: No acute cardiopulmonary process appreciated. Neck XR 08/25: Soft tissue mass effect in and about the level of the glottis consistent with laryngeal neoplasm. Asymmetric calcification of the arytenoid cartilage on the left. Mild distention of the hypopharynx and suggestion of airway narrowing at the level of the glottis. 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 CXR 08/25: 1. Recently placed tracheostomy with extensive subcutaneous emphysema and suspected pneumomediastinum. CT abdomen / pelvis 08/26: 1. Examination is significantly limited due to lack of oral/IV contrast and lack of intrinsic contrast due to low BMI. 2. Elements of irregular gas as described above likely related to pneumomediastinum and tracking into the extraperitoneal spaces of the abdomen and pelvis. Less likely intraperitoneal gas related to bowel perforation. 3. No obvious acute abdominopelvic pathology appreciated. CT chest 08/26: 1. Tracheostomy appears to be in satisfactory position. 2. Extensive subcutaneous emphysema and pneumomediastinum. 3. Very subtle/early left lower lobe infiltrate. CXR 08/29: 1. Improved/decreased subcutaneous emphysema and pneumomediastinum. 2. Small pleural effusions along with small area of opacity in the left mid lung zone again noted. CXR 08/30: 1. Decreased subcutaneous and mediastinal gas. 2. No change in the costophrenic blunting suggesting small pleural reactions. 3. Density in the left mid lung zone may warrant short-term 3 month follow-up CT. CXR 08/31: 1. Decreased subcutaneous emphysema at the thoracic inlet. Pneumomediastinum resolved. 2. No new acute pleuroparenchymal process appreciated. Assessment and plan: s/p Acute hypoxic respiratory failure - likely 2/2 airway obstruction 2/2 laryngeal mass - Patient is currently on trach collar for humidity only requiring essentially 21-25% oxygen (room air) - c/p Tracheostomy on 08/25 with ENT, Dr. Veloz - c/w [facility] Laryngeal mass - likely 2/2 Squamous cell carcinoma - Biopsy 08/25: Squamous cell carcinoma, moderately differentiated - Patient will need outpatient follow up with Oncology for continued therapy Aspiration - Speech therapy has recommended strict NPO - s/p PEG tube placement on 08/30/2020 - c/w TPN nutrition for now - General surgery on consultation; appreciate their input Leukocytosis - possibly 2/2 corticosteroids, less likely 2/2 PNA - Improving - Clinically has had improvement - No fevers noted - CRP trending down - Will DC Solumedrol; will start Prednisone Pneumonia - possibly 2/2 aspiration - Has not reported any significant cough this morning - Hemodynamically stable and afebrile - Imaging with evidence of infiltrate at RLL - c/w Moxifloxacin (Day #5) Severe protein-calorie malnutrition - 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 - BMI of 14 Acute on chronic COPD exacerbation - No evidence of wheezing this morning - Will start Prednisone; Will DC Solumedrol - c/w Inhaled therapy as ordered Active tobacco abuse - Advised smoking cessation - c/w Nicotine patch DVT prophylaxis - c/w Lovenox Disposition: - Will downgrade to med/surg - Anticipate DC in 24 hours VS,Fishbone, I+O VS, Fishbone, I+O Laboratory Tests 08/31/20 05:20 Vital Signs Date Time Temp Pulse Resp B/P (MAP) Pulse Ox O2 Delivery O2 Flow Rate FiO2 08/31/20 07:41 97.7 82 18 119/56 (77) 97 Room Air 08/31/20 04:00 3.0 25 I&O- Last 24 Hours up to 6 AM 08/31/20 05:59 Intake Total 2020 ml Output Total 1550 ml Balance 470 ml GARIMA WRIGHT MD Aug 31, 2020 10:03
[2020-08-31] MEDS: NICOTINE 14 MG/24 HR TRANSDERMAL TD SCH (10:06)
[2020-08-31] MEDS: ENOXAPARIN 40MG/0.4ML SYRINGE (J1650 PER 10MG) SC SCH (10:06)
[2020-08-31] MEDS: BACITRACIN OINTMENT 30GM TUBE TOP SCH ×2 (10:07→20:24)
[2020-08-31] MEDS: predniSONE 20 MG TAB FT SCH (12:16)
[2020-08-31] MEDS: MOXIFLOXACIN HCL 400 MG in IV 1 EA IV SCH (12:17)
--- NOTE | 2020-08-31 14:52 | IPNPDOC ---
Subjective Date Seen The patient was seen on 08/31/20. Subjective Chief Complaint/HPI Obstructing laryngeal carcinoma. Events since last encounter Raymond is postop day 6 status post awake tracheostomy and laryngeal biopsy. He also had biopsy of a left submandibular skin lesion. Pathology has revealed the laryngeal lesion to be squamous cell carcinoma. I believe this is T3 given he had no vocal fold movement. The left submandibular skin lesion is a basal cell carcinoma. This will require full excision. Yesterday he underwent PEG tube placement for nutritional support. Objective Physical Examination Other physical findings Raymond is resting comfortably has no issues with the trach since he was seen last. He is beginning to learn trach care. I changed his endotracheal tube today we placed a #8 uncuffed fenestrated Shiley tube. Sutures removed from his left neck as well. Assessment /Plan Assessment Raymond is stable from his airway perspective. He can continue with his trach care. He lives alone and has no family support. He will require oncology consultation and possible radiotherapy to treat this lesion. If the left submandibular basal cell lesion is in the field of treatment we can monitor this progress. If however this will be outside the field and oncology feels that should be completely resected we can do so. This can certainly be done on an elective basis. From an ENT perspective he can be treated on an outpatient basis if he is able to care for his trach tube adequately at home. Teaching and eventual discharge should not delay his oncology treatment. Plan/VTE VTE Prophylaxis Ordered?: No VS, I&O, 24H, Fishbone Vital Signs/I&O Vital Signs Date Time Temp Pulse Resp B/P (MAP) Pulse Ox O2 Delivery O2 Flow Rate FiO2 08/31/20 07:41 97.7 82 18 119/56 (77) 97 Room Air 08/31/20 04:00 3.0 25 I&O- Last 24 Hours up to 6 AM 08/31/20 06:00 Intake Total 2020 ml Output Total 1850 ml Balance 170 ml Laboratory Data 24H LABS Laboratory Tests 2 08/30/20 17:40: Bedside Glucose (Misc Panel) 119H 08/31/20 00:07: Bedside Glucose (Misc Panel) 101 08/31/20 05:20: Immature Granulocyte % (Auto) 1.5, Neutrophils (%) (Auto) 91.3H, Lymphocytes (%) (Auto) 2.5L, Monocytes (%) (Auto) 4.5, Eosinophils (%) (Auto) 0.0, Basophils (%) (Auto) 0.2, Neutrophils # (Auto) 20.7H, Lymphocytes # (Auto) 0.6L, Monocytes # (Auto) 1.0H, Eosinophils # (Auto) 0.0, Basophils # (Auto) 0.1, Nucleated Red Blood Cells % (auto) 0.0, Anion Gap 8, Glomerular Filtration Rate > 60.0, Calcium Level 8.4L, Magnesium Level 2.2, Total Bilirubin 0.4, Aspartate Amino Transf (AST/SGOT) 28, Alanine Aminotransferase (ALT/SGPT) 67, Alkaline Phosphatase 67, Total Protein 5.6L, Albumin 2.6L, Albumin/Globulin Ratio 0.9 08/31/20 11:22: Bedside Glucose (Misc Panel) 104 CBC/BMP Laboratory Tests 08/31/20 05:20 Microbiology Microbiology 08/25/20 Blood Culture - Final, Complete NO GROWTH AFTER 5 DAYS 08/25/20 Blood Culture - Final, Complete NO GROWTH AFTER 5 DAYS Dale Veloz MD Aug 31, 2020 14:52
[2020-08-31 16:15] VITALS: BP 123/58
[2020-08-31 17:55] VITALS: BP 125/64
[2020-08-31] MEDS ORDERED: FAT EMULSION IV 20% 500 ML IV SCH (18:00)
[2020-08-31] MEDS ORDERED: AMINO AC/ELECTROLYTE/DEX/CALC 2,000 ML IV SCH (18:00)
[2020-08-31 21:09] VITALS: BP 119/64
[2020-09-01] MEDS: LEVALBUTEROL 1.25 MG/0.5 ML CONCENTRATE NEB INH SCH ×6 (05:10→23:16)
[2020-09-01] MEDS: HumaLOG INSULIN (NovoLOG) PER UNIT SC SCH ×2 (05:41→12:00)
[2020-09-01] MEDS: SODIUM CHLORIDE 0.9% INJ 10 ML SYR IV SCH ×2 (05:46→18:09)
[2020-09-01 05:58] VITALS: BP 115/68
[2020-09-01 06:35] LABS: BASO # 0.1 10^3/uL (0.0-0.2); BASO % 0.3 % (0.0-1.0); HEMATOCRIT 49.3 % (42.0-52.0); HEMOGLOBIN 16.1 g/dl (13.5-17.5); LYMPH # 1.3 10^3/uL (1.5-5.0); LYMPH % 6.5 % (24.0-44.0); MEAN CORPUSCULAR HEMOGLOBIN 29.5 pg (27.0-33.0); MEAN CORPUSCULAR HGB CONC 32.7 g/dl (32.0-36.5); MEAN CORPUSCULAR VOLUME 90.5 fl (80.0-96.0); MONO # 1.8 10^3/uL (0.0-0.8); MONO % 9.1 % (2.0-8.0); NEUTROPHILS # 16.7 10^3/uL (1.5-8.5); PLATELET COUNT, AUTOMATED 188 10^3/uL (150-450); RED BLOOD COUNT 5.45 10^6/uL (4.30-6.10)
[2020-09-01 06:56] LABS: WHITE BLOOD COUNT 20.2 10^3/uL (4.0-10.0)
[2020-09-01 07:03] LABS: BLOOD UREA NITROGEN 33 MG/DL (7-18); CALCIUM LEVEL 8.8 MG/DL (8.8-10.2); CARBON DIOXIDE LEVEL 32 MEQ/L (21-32); CHLORIDE LEVEL 104 MEQ/L (98-107); GLOMERULAR FILTRATION RATE > 60.0 (>49); GLUCOSE, FASTING 87 MG/DL (70-100); MAGNESIUM LEVEL 2.2 MG/DL (1.8-2.4); POTASSIUM SERUM 3.7 MEQ/L (3.5-5.1); SODIUM LEVEL 140 MEQ/L (136-145)
[2020-09-01] MEDS: predniSONE 20 MG TAB FT SCH (08:31)
[2020-09-01] MEDS: NICOTINE 14 MG/24 HR TRANSDERMAL TD SCH (08:31)
[2020-09-01] MEDS: MOXIFLOXACIN 400 MG TAB PO SCH (08:31)
[2020-09-01] MEDS: ENOXAPARIN 40MG/0.4ML SYRINGE (J1650 PER 10MG) SC SCH (08:31)
[2020-09-01] MEDS: BACITRACIN OINTMENT 30GM TUBE TOP SCH ×2 (08:32→22:06)
[2020-09-01] MEDS ORDERED: PRED10TA2 PO (09:08)
[2020-09-01] MEDS ORDERED: SCOP1PAT2 TOP (09:08)
--- NOTE | 2020-09-01 10:09 | IPNPDOC ---
Text Note Date of Service The patient was seen on 09/01/20. NOTE Subjective: Patient is a 60 year old male with a PMHx of COPD, Active smoker who presented to the ER with SOB / wheezing / difficulty swallowing. Patient was admitted to the hospital service for further evaluation and treatment and was emergently taken for tracheostomy placement with Dr. Veloz of ENT. Patient was seen and examined at the bedside. Patient reports that he feels fine. Denies any CP, SOB or palpitations. Reports that he did regurgitate some tube feedings. Denies any abdominal pain, C/D or urinary discomfort. Objective: Vitals (See below) General: Sitting up in bed, appears comfortable, awake / alert, oriented x 3 HEENT: Tracheostomy placed CVS: +S1S2 Lungs: Fair air entry bilaterally without evidence of wheezing, crackles or rhonchi Abdomen: His abdomen is soft, nondistended, nontender. PEG tube is present Extremities: Lower extremities do not reveal any edema Imaging: CXR 08/25: No acute cardiopulmonary process appreciated. Neck XR 08/25: Soft tissue mass effect in and about the level of the glottis consistent with laryngeal neoplasm. Asymmetric calcification of the arytenoid cartilage on the left. Mild distention of the hypopharynx and suggestion of airway narrowing at the level of the glottis. 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 CXR 08/25: 1. Recently placed tracheostomy with extensive subcutaneous emphysema and suspected pneumomediastinum. CT abdomen / pelvis 08/26: 1. Examination is significantly limited due to lack of oral/IV contrast and lack of intrinsic contrast due to low BMI. 2. Elements of irregular gas as described above likely related to pneumomediastinum and tracking into the extraperitoneal spaces of the abdomen and pelvis. Less likely intraperitoneal gas related to bowel perforation. 3. No obvious acute abdominopelvic pathology appreciated. CT chest 08/26: 1. Tracheostomy appears to be in satisfactory position. 2. Extensive subcutaneous emphysema and pneumomediastinum. 3. Very subtle/early left lower lobe infiltrate. CXR 08/29: 1. Improved/decreased subcutaneous emphysema and pneumomediastinum. 2. Small pleural effusions along with small area of opacity in the left mid lung zone again noted. CXR 08/30: 1. Decreased subcutaneous and mediastinal gas. 2. No change in the costophrenic blunting suggesting small pleural reactions. 3. Density in the left mid lung zone may warrant short-term 3 month follow-up CT. CXR 08/31: 1. Decreased subcutaneous emphysema at the thoracic inlet. Pneumomediastinum resolved. 2. No new acute pleuroparenchymal process appreciated. Assessment and plan: s/p Acute hypoxic respiratory failure - likely 2/2 airway obstruction 2/2 laryngeal mass - Patient is currently on trach collar for humidity only requiring essentially 21-25% oxygen (room air) - c/p Tracheostomy on 08/25 with ENT, Dr. Veloz - c/w Trach care and teaching Laryngeal mass - likely 2/2 Squamous cell carcinoma - Biopsy 08/25: Squamous cell carcinoma, moderately differentiated - Patient will need outpatient follow up with Oncology for continued therapy - Discussed case with Dr. Colon; will have outpatient follow up on discharge within 7 days, will also arrange for ChemoRT follow up - Advised to get CT neck / head for further staging / workup Aspiration - Speech therapy has recommended strict NPO - s/p PEG tube placement on 08/30/2020 - c/w TPN nutrition for now - General surgery on consultation; appreciate their input Leukocytosis - possibly 2/2 corticosteroids, less likely 2/2 PNA - Improving - Clinically has had improvement - No fevers noted - CRP trending down - s/p Solumedrol; c/w Prednisone Pneumonia - possibly 2/2 aspiration - Has not reported any significant cough this morning - He remains hemodynamically stable / No fevers noted - Imaging with evidence of infiltrate at RLL - c/w Moxifloxacin (Day #6); Will transition to via PEG for completion of antibiotic course Severe protein-calorie malnutrition - 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 - BMI of 14 Acute on chronic COPD exacerbation - No evidence of wheezing this morning - c/w Prednisone; s/p Solumedrol - c/w Inhaled therapy as ordered Active tobacco abuse - Advised smoking cessation - c/w Nicotine patch DVT prophylaxis - c/w Lovenox Disposition: - Will transition to [facility] until trach supplies are available for discharge - Home with services once trach supplies are available VS,Fishbone, I+O VS, Fishbone, I+O Laboratory Tests 09/01/20 06:11 Vital Signs Date Time Temp Pulse Resp B/P (MAP) Pulse Ox O2 Delivery O2 Flow Rate FiO2 09/01/20 05:58 97.9 90 20 115/68 (84) 96 Trach Collar 5.0 28 I&O- Last 24 Hours up to 6 AM 09/01/20 06:00 Intake Total 2665 ml Output Total 1950 ml Balance 715 ml GARIMA WRIGHT MD Sep 01, 2020 10:09
[2020-09-01] MEDS ORDERED: ISOVUE-370 76% 100ML VIAL As Ordered ONE (10:31)
--- NOTE | 2020-09-01 12:10 | REPVR ---
PROCEDURE INFORMATION: Exam: CT Head With Contrast Exam date and time: 09/01/2020 10:38 AM Age: 60 years old Clinical indication: Condition or disease; History of cancer (specify primary cancer site): ; Primary cancer: Skin; Additional info: Evaluate for mets TECHNIQUE: Imaging protocol: Computed tomography of the head with intravenous contrast. Radiation optimization: All CT scans at this facility use at least one of these dose optimization techniques: automated exposure control; mA and/or kV adjustment per patient size (includes targeted exams where dose is matched to clinical indication); or iterative reconstruction. Contrast material: ISOVUE 370; Contrast volume: 100 ml; Contrast route: INTRAVENOUS (IV); COMPARISON: CT Neck with contrast 09/01/2020 10:41:[address] Chest without contrast 08/26/2020 10:32:14 AM FINDINGS: Brain: The brain demonstrates generalized volume loss. No obvious hemorrhage or edema. No enhancing lesions identified. Cerebral ventricles: Enlarged in keeping with volume loss. Bones/joints: Unremarkable. No acute fracture. Paranasal sinuses: Visualized sinuses are unremarkable. No fluid levels. Mastoid air cells: Left middle ear cavity and mastoid effusion as well as right mastoid effusion again demonstrated. Soft tissues: There is retropharyngeal soft tissue air. IMPRESSION: No CT evidence of intracranial metastatic disease. Electronically signed by: Leti De La Cruz On 09/01/2020 12:10:04 PM
--- NOTE | 2020-09-01 12:27 | REPVR ---
PROCEDURE INFORMATION: Exam: CT Neck With Contrast Exam date and time: 09/01/2020 10:38 AM Age: 60 years old Clinical indication: Condition or disease; Cancer; Other: Eval mets; Additional info: Evaluate for mets TECHNIQUE: Imaging protocol: Computed tomography images of the neck with contrast. Radiation optimization: All CT scans at this facility use at least one of these dose optimization techniques: automated exposure control; mA and/or kV adjustment per patient size (includes targeted exams where dose is matched to clinical indication); or iterative reconstruction. Contrast material: ISOVUE 370; Contrast volume: 100 ml; Contrast route: INTRAVENOUS (IV); COMPARISON: 1. CT Neck with contrast 08/20/2020 4:43 PM 2. NH Soft Tissue Neck 08/25/2020 7:40:[address] Chest without contrast 08/26/2020 10:32:14 AM FINDINGS: Nasopharynx: Unremarkable. Oropharynx: Unremarkable. No significant tonsillar enlargement. Hypopharynx: Unremarkable. Larynx: Limited assessment of the larynx due to motion artifacts. The left arytenoid cartilage is calcified. Abnormal range all soft tissue density, in particular, heterogeneous asymmetric increased soft tissue density in the region of the true and false vocal fold on the left suspicious for tumor. Soft tissue thickening in the region of the anterior commissure, as well. There may be involvement of the right larynx, as well. Bilateral laryngeal ventricles are effaced. Retropharyngeal space: There is retropharyngeal air. Submandibular/Parotid glands: Normal. Glands are normal in size. Thyroid: Normal. No enlarged or calcified nodules. Lymph nodes: See "Soft tissues" finding. Trachea: A tracheostomy is partially characterized on this study. Lungs: The lung apices are emphysematous. In particular, bullous emphysematous changes of the lung apices. Bones/joints: No acute fracture. Moderate degenerative changes from C4-C5 through C6-C7. Soft tissues: Subcutaneous emphysema is again demonstrated including soft tissue air adjacent to the tracheostomy. A paucity of subcutaneous fat consistent with cachexia. Some limitations assessing for lymphadenopathy given the paucity of fat planes between soft tissue structures. There is generalized neck soft tissue, in particular posterior neck soft tissue edema. Other findings: Pneumomediastinum is again demonstrated. IMPRESSION: 1. Images are motion degraded. Additionally, given the paucity of fat planes between soft tissue structures, difficult to assess the presence or absence of lymphadenopathy. 2. Images remain motion degraded at the level of the larynx. 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 3. Pneumomediastinum and subcutaneous emphysema persist. Electronically signed by: Leti De La Cruz On 09/01/2020 12:26:58 PM
[2020-09-01 14:00] VITALS: BP 114/67
[2020-09-01] MEDS: SCOPOLAMINE 1MG TRANSDERMAL PATCH TOP SCH (18:09)
[2020-09-01 22:00] VITALS: BP 114/66
[2020-09-02] MEDS: LEVALBUTEROL 1.25 MG/0.5 ML CONCENTRATE NEB INH SCH ×5 (03:46→20:08)
[2020-09-02] MEDS ORDERED: ONDANSETRON 4MG/2ML VIAL IV PRN (04:15)
[2020-09-02] MEDS: SODIUM CHLORIDE 0.9% INJ 10 ML SYR IV SCH ×2 (04:33→15:52)
[2020-09-02] MEDS: MOXIFLOXACIN 400 MG TAB PO SCH (05:27)
[2020-09-02 06:00] VITALS: BP 157/76
[2020-09-02 06:17] LABS: BASO # 0.1 10^3/uL (0.0-0.2); BASO % 0.3 % (0.0-1.0); HEMATOCRIT 47.5 % (42.0-52.0); HEMOGLOBIN 15.5 g/dl (13.5-17.5); LYMPH % 3.9 % (24.0-44.0); MEAN CORPUSCULAR HEMOGLOBIN 29.9 pg (27.0-33.0); MEAN CORPUSCULAR HGB CONC 32.6 g/dl (32.0-36.5); MEAN CORPUSCULAR VOLUME 91.7 fl (80.0-96.0); MONO % 9.2 % (2.0-8.0); NEUTROPHILS # 22.7 10^3/uL (1.5-8.5); NEUTROPHILS % 85.1 % (36.0-66.0); PLATELET COUNT, AUTOMATED 192 10^3/uL (150-450); RED BLOOD COUNT 5.18 10^6/uL (4.30-6.10)
[2020-09-02 06:42] LABS: BLOOD UREA NITROGEN 31 MG/DL (7-18); CALCIUM LEVEL 8.6 MG/DL (8.8-10.2); CARBON DIOXIDE LEVEL 37 MEQ/L (21-32); CHLORIDE LEVEL 102 MEQ/L (98-107); CREATININE FOR GFR 0.73 MG/DL (0.70-1.30); GLOMERULAR FILTRATION RATE > 60.0 (>49); GLUCOSE, FASTING 116 MG/DL (70-100); MAGNESIUM LEVEL 2.1 MG/DL (1.8-2.4); POTASSIUM SERUM 4.2 MEQ/L (3.5-5.1); SODIUM LEVEL 141 MEQ/L (136-145)
[2020-09-02 06:51] LABS: MONO # 2.5 10^3/uL (0.0-0.8); WHITE BLOOD COUNT 26.7 10^3/uL (4.0-10.0)
[2020-09-02 07:37] LABS: C REACTIVE PROTEIN QUANTITATIV 0.97 MG/DL (0.00-0.30)
[2020-09-02 08:30] VITALS: BP 118/70
[2020-09-02] MEDS: predniSONE 20 MG TAB FT SCH (08:32)
[2020-09-02] MEDS: ENOXAPARIN 40MG/0.4ML SYRINGE (J1650 PER 10MG) SC SCH (08:33)
[2020-09-02] MEDS: NICOTINE 14 MG/24 HR TRANSDERMAL TD SCH (08:34)
[2020-09-02] MEDS: BACITRACIN OINTMENT 30GM TUBE TOP SCH ×2 (08:35→20:50)
[2020-09-02 14:00] VITALS: BP 88/54
--- NOTE | 2020-09-02 14:32 | REP ---
INDICATION: SOB. COMPARISON: 08/31/2020, 08/30/2020, 08/29/2020. TECHNIQUE: AP portable seated exam FINDINGS: Tracheostomy tube again seen well seated in its tip about 4 cm from the orin, unchanged. Interval development of some patchy atelectasis or infiltrate in the left base above the diaphragm stable appearance of a patchy density in the left mid lung zone compared to prior studies. Less blunting of the CP angles but still slight and I suspect small effusions may be present underlying COPD and fibrosis present. PICC line again seen via the right upper extremity route extending into the distal SVC near the right atrium there is some subcutaneous emphysema in the sub clavicular region lateral to the upper ribs, decreased from 2 days ago. I do not see definite pneumomediastinum or pneumothorax. IMPRESSION: 1. Tracheostomy tube well seated and unchanged. PICC line unchanged. No pneumothorax or pneumomediastinum identified at this time. 2. New patchy zone of atelectasis or infiltrate small region in the left base just above the diaphragm with stable subtle patchy density left mid lung zone. Some underlying fibrosis and COPD again noted. Small effusions suspected. <Electronically signed by Grey Milner > 09/02/20 [id number]
[2020-09-02 15:02] VITALS: BP 98/42
[2020-09-02] MEDS ORDERED: NS 500 ML IV ONE (15:05)
[2020-09-02 15:50] VITALS: BP 110/57
[2020-09-02 22:00] VITALS: BP 102/54
[2020-09-03] MEDS: LEVALBUTEROL 1.25 MG/0.5 ML CONCENTRATE NEB INH SCH ×7 (00:10→23:08)
[2020-09-03] MEDS: MOXIFLOXACIN 400 MG TAB PO SCH (05:42)
[2020-09-03] MEDS: SODIUM CHLORIDE 0.9% INJ 10 ML SYR IV SCH ×2 (05:42→17:31)
[2020-09-03 06:00] VITALS: BP 111/60
[2020-09-03 06:44] LABS: BASO % 0.2 % (0.0-1.0); EOS # 0.1 10^3/uL (0.0-0.5); EOS % 0.4 % (0.0-3.0); HEMATOCRIT 43.1 % (42.0-52.0); HEMOGLOBIN 14.1 g/dl (13.5-17.5); LYMPH # 1.5 10^3/uL (1.5-5.0); LYMPH % 7.6 % (24.0-44.0); MEAN CORPUSCULAR HEMOGLOBIN 30.2 pg (27.0-33.0); MEAN CORPUSCULAR HGB CONC 32.7 g/dl (32.0-36.5); MEAN CORPUSCULAR VOLUME 92.3 fl (80.0-96.0); MONO % 8.5 % (2.0-8.0); NEUTROPHILS # 15.9 10^3/uL (1.5-8.5); NEUTROPHILS % 82.4 % (36.0-66.0); PLATELET COUNT, AUTOMATED 184 10^3/uL (150-450); RED BLOOD COUNT 4.67 10^6/uL (4.30-6.10)
[2020-09-03 07:03] LABS: BLOOD UREA NITROGEN 29 MG/DL (7-18); CALCIUM LEVEL 8.6 MG/DL (8.8-10.2); CARBON DIOXIDE LEVEL 32 MEQ/L (21-32); CHLORIDE LEVEL 102 MEQ/L (98-107); CREATININE FOR GFR 0.53 MG/DL (0.70-1.30); GLOMERULAR FILTRATION RATE > 60.0 (>49); GLUCOSE, FASTING 76 MG/DL (70-100); MAGNESIUM LEVEL 2.1 MG/DL (1.8-2.4); POTASSIUM SERUM 3.8 MEQ/L (3.5-5.1); SODIUM LEVEL 137 MEQ/L (136-145)
[2020-09-03 07:12] LABS: MONO # 1.6 10^3/uL (0.0-0.8); WHITE BLOOD COUNT 19.3 10^3/uL (4.0-10.0)
[2020-09-03] MEDS ORDERED: NS 500 ML IV ONE (07:35)
[2020-09-03] MEDS: NICOTINE 14 MG/24 HR TRANSDERMAL TD SCH (08:10)
[2020-09-03] MEDS: ENOXAPARIN 40MG/0.4ML SYRINGE (J1650 PER 10MG) SC SCH (08:10)
[2020-09-03] MEDS: BACITRACIN OINTMENT 30GM TUBE TOP SCH ×2 (08:10→21:10)
[2020-09-03] MEDS: predniSONE 20 MG TAB FT SCH (08:10)
[2020-09-04] MEDS: LEVALBUTEROL 1.25 MG/0.5 ML CONCENTRATE NEB INH SCH ×6 (04:00→23:03)
[2020-09-04] MEDS: SODIUM CHLORIDE 0.9% INJ 10 ML SYR IV SCH ×2 (05:10→18:22)
[2020-09-04] MEDS: MOXIFLOXACIN 400 MG TAB GT SCH (05:10)
[2020-09-04 06:00] VITALS: BP 108/56
[2020-09-04 06:20] LABS: BASO % 0.1 % (0.0-1.0); EOS # 0.1 10^3/uL (0.0-0.5); EOS % 0.6 % (0.0-3.0); HEMATOCRIT 41.7 % (42.0-52.0); HEMOGLOBIN 13.6 g/dl (13.5-17.5); LYMPH # 1.4 10^3/uL (1.5-5.0); LYMPH % 7.7 % (24.0-44.0); MEAN CORPUSCULAR HEMOGLOBIN 29.6 pg (27.0-33.0); MEAN CORPUSCULAR HGB CONC 32.6 g/dl (32.0-36.5); MEAN CORPUSCULAR VOLUME 90.7 fl (80.0-96.0); MONO # 1.3 10^3/uL (0.0-0.8); MONO % 7.3 % (2.0-8.0); NEUTROPHILS # 15.2 10^3/uL (1.5-8.5); NEUTROPHILS % 83.6 % (36.0-66.0); PLATELET COUNT, AUTOMATED 202 10^3/uL (150-450); WHITE BLOOD COUNT 18.1 10^3/uL (4.0-10.0)
[2020-09-04 06:42] LABS: BLOOD UREA NITROGEN 27 MG/DL (7-18); CALCIUM LEVEL 8.3 MG/DL (8.8-10.2); CARBON DIOXIDE LEVEL 32 MEQ/L (21-32); CHLORIDE LEVEL 100 MEQ/L (98-107); CREATININE FOR GFR 0.57 MG/DL (0.70-1.30); GLOMERULAR FILTRATION RATE > 60.0 (>49); GLUCOSE, FASTING 80 MG/DL (70-100); POTASSIUM SERUM 3.9 MEQ/L (3.5-5.1); SODIUM LEVEL 136 MEQ/L (136-145)
[2020-09-04] MEDS: predniSONE 20 MG TAB FT SCH (08:55)
[2020-09-04] MEDS: NICOTINE 14 MG/24 HR TRANSDERMAL TD SCH (08:55)
[2020-09-04] MEDS: ENOXAPARIN 40MG/0.4ML SYRINGE (J1650 PER 10MG) SC SCH (08:55)
[2020-09-04] MEDS: BACITRACIN OINTMENT 30GM TUBE TOP SCH ×2 (08:56→19:58)
[2020-09-04] MEDS: SCOPOLAMINE 1MG TRANSDERMAL PATCH TOP SCH (18:00)
[2020-09-05] MEDS: LEVALBUTEROL 1.25 MG/0.5 ML CONCENTRATE NEB INH SCH ×5 (04:00→19:26)
[2020-09-05 06:00] VITALS: BP 102/54
[2020-09-05] MEDS: SODIUM CHLORIDE 0.9% INJ 10 ML SYR IV SCH ×2 (06:09→17:48)
[2020-09-05] MEDS: MOXIFLOXACIN 400 MG TAB GT SCH (06:10)
[2020-09-05 07:13] LABS: BASO % 0.1 % (0.0-1.0); EOS % 0.2 % (0.0-3.0); HEMATOCRIT 41.7 % (42.0-52.0); HEMOGLOBIN 14.2 g/dl (13.5-17.5); LYMPH # 1.2 10^3/uL (1.5-5.0); LYMPH % 5.6 % (24.0-44.0); MEAN CORPUSCULAR HEMOGLOBIN 30.7 pg (27.0-33.0); MEAN CORPUSCULAR HGB CONC 34.1 g/dl (32.0-36.5); MEAN CORPUSCULAR VOLUME 90.1 fl (80.0-96.0); MONO # 1.4 10^3/uL (0.0-0.8); MONO % 6.5 % (2.0-8.0); NEUTROPHILS # 18.2 10^3/uL (1.5-8.5); NEUTROPHILS % 86.8 % (36.0-66.0); PLATELET COUNT, AUTOMATED 209 10^3/uL (150-450); RED BLOOD COUNT 4.63 10^6/uL (4.30-6.10)
[2020-09-05 07:38] LABS: BLOOD UREA NITROGEN 23 MG/DL (7-18); CALCIUM LEVEL 8.5 MG/DL (8.8-10.2); CARBON DIOXIDE LEVEL 30 MEQ/L (21-32); CHLORIDE LEVEL 100 MEQ/L (98-107); CREATININE FOR GFR 0.57 MG/DL (0.70-1.30); GLOMERULAR FILTRATION RATE > 60.0 (>49); GLUCOSE, FASTING 78 MG/DL (70-100); POTASSIUM SERUM 3.7 MEQ/L (3.5-5.1); SODIUM LEVEL 136 MEQ/L (136-145)
[2020-09-05] MEDS: predniSONE 20 MG TAB FT SCH (09:30)
[2020-09-05] MEDS: ENOXAPARIN 40MG/0.4ML SYRINGE (J1650 PER 10MG) SC SCH (09:31)
[2020-09-05] MEDS: BACITRACIN OINTMENT 30GM TUBE TOP SCH ×2 (09:32→20:55)
[2020-09-05] MEDS: NICOTINE 14 MG/24 HR TRANSDERMAL TD SCH (09:32)
--- NOTE | 2020-09-05 11:43 | RADONC.CN ---
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 He has undergone tracheostomy and PEG tube placement and is seen today for consideration of chemoradiation. Of note, he also has a small biopsy proven BCC of the skin in the left submandibular region. Diagnosis/Treatment History Oncologic History Summer 2020: Developed a sore throat and dysphagia, lost ~15 lbs. Came to the ED on 08/25/20 was noted to have stridor on exam and had a DL and biopsy of a glottic mass and tracheostomy placement (Dr. Veloz). He subsequently underwent PEG placement on 08/30/20. Plan is for discharge home with nursing services. He also has an incidental biopsy proven BCC of the left submandibular skin. Relevant data: 08/25/20 Laryngeal biopsy SCC moderately differentiated Left neck submandibular skin Basal cell carcinoma 08/20/20 CT neck Large transglottic lesion with invasion of the thyroid cartilage on the R>L, no apparent extension through the thyroid cartilage. There is subglottic extension. There are no obvious enlarged LNs, though there are none of the usual fat planes secondary to low BMI. 09/01/20 CT neck Motion degraded with excessive subcutaneous air secondary to interval tracheostomy placement. Non-useful study 09/01/20 CT head No intracranial lesions 08/26/20 CT chest abdomen pelvis No evidence of distant metastases Interval History Seen at bedside. He reports no pain. TF has been initiated, he reports tolerating this without significant nausea or diarrhea. Reports that he has always been thin, but in particular he has lost ~15 lbs this past month alone due to sore throat and inability to swallow much. He lives alone, is a 1/2 ppd smoker. Does wish to quit. Would like to leave the hospital. He says that he has been out of bed and ambulating in recent days. 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 Allergies / Meds Allergies: Coded Allergies: Penicillins (Verified Allergy, Intermediate, rash, 05/01/20) Home Meds Active Scripts Scopolamine (Transderm-Scop) 1 Each Patch.td.3, 1 MG TOP Q72H for 30 Days, #10 PATCH Prov:GARIMA WRIGHT MD 09/01/20 Prednisone (Prednisone) 10 Mg Tablet, 10 MG PO TAPER, #30 TAB Take 4 tabs daily x 3 days, then 3 tabs daily x 3 days, then 2 tabs daily x 3 days, then 1 tab daily x 3 days and stop Prov:GARIMA WRIGHT MD 09/01/20 Reported Medications Albuterol Sulfate (Proair Hfa) 8.5 Gm Hfa.aer.ad, 2 PUFF INH Q6-8HP PRN for DYSPNEA 08/25/20 Discontinued Reported Medications Prednisone (Prednisone) 20 Mg Tablet, 20 MG PO ASDIRECTED 3 TABS DAYS 1-3, 2 TABS DAYS 4-7, 1 TAB DAYS 8-10 PICKED UP FROM PHARMACY 08/22/20 08/25/20 Doxycycline Monohydrate (Doxycycline Monohydrate) 100 Mg Tablet, 100 MG PO Q12H 08/25/20 Review of Systems Constitutional: Reports: Fatigue, Weight Loss; Denies: Fever Eyes: Denies: Pain HEENT: Reports: Dysphagia, Sore Throat; Denies: Head Aches, Ear Pain Skin: Reports: Lesions Pulmonary: Reports: Dyspnea, Cough Cardiovascular: Denies: Chest Pain, Palpitations Gastrointestinal: Denies: Nausea, Vomiting, Diarrhea Hematologic: Denies: Bruising, Bleeding Excessively Musculoskeletal: Reports: Neck pain; Denies: Back pain Neurological: Denies: Weakness, Numbness Psych: Reports: Mood Normal Vital Signs Vital Signs Date Time Temp Pulse Resp B/P (MAP) Pulse Ox O2 Delivery O2 Flow Rate FiO2 09/05/20 06:00 97.9 66 18 102/54 (70) 95 Trach Collar 5.0 28 General Exam: Positive: Alert, Cooperative, No Acute Distress, Other (Cachectic) Eye Exam: Positive: PERRLA, EOMI ENT EXAM: Positive: Atraumatic, Mucous membr. moist/pink, Other ENT (Oral cavity exam: He is edentulous there are no lesions of the buccal mucosa, g ingiva, oral tongue or FOM on bimanual exam or visual inspection. There is a dark ulcerated lesion ~1.5 cm in extent on the left submandibular skin. There is a 0.5 cm dark ulcerated lesion on the nasal tip.) Neck Exam: Positive: Other (Examination of the cervical neck reveals no palpable lymphadenopathy, there is a total loss of fat on the neck, there are visible catodid and jugular pulsations secondary to fat loss BL. There is preserved laryngeal crepitus and there is no palpable mass outside of the thyroid cartilage. He has a tracheostomy and the site looks CDI. ) Chest Exam: Positive: Clear to auscultation, Wheezing (There are moderately coarse breath sounds BL and some expiratory wheezes) Heart Exam: Positive: Rate Normal, Regular Rhythm Abdomen Exam: Positive: Soft, Other (PEG site CDI); Negative: Tenderness Extremity Exam: Negative: Edema Skin Exam: Positive: Nl turgor and temperature Neuro Exam: Positive: Normal Speech (Able to speak softly with trach occluded), Cranial Nerves 3-12 NL Psych Exam: Positive: Mental status NL Other Physical Findings Laryngoscopy per Dr. Veloz's 08/25/20 Operative note: The tongue base vallecula piriform and postcricoid areas were examined and were clear. The laryngeal surface of the epiglottis appeared clear. There was a large tumor involving the left and right true cord and false cord area. There was very little airway posteriorly. The Systancia suspension apparatus was connected. The microscope was brought into position. Cup biopsy forceps were used to sample tissue from the right and left laryngeal areas. Hemostasis was achieved with pledgets soaked in Afrin. These were removed. Hemostasis was evident. The laryngoscope was rel eased from the Lewy suspension apparatus and removed from the airway. We noted a approximately 1-1/2 cm lesion on the surface of the skin in the left submandibular area which appeared to be basal cell. Decision was made to biopsy this under the anesthesia. We injected with 1% lidocaine with epinephrine. We made a wedge biopsy with an 11 blade and remove this. We placed several 5-0 nylon sutures to close the area. Diagnostic and Laboratory Diagnostic Review Radiologic images, relevant labs and pathology reports were personally reviewed and discussed with Mr. Brizuela. Laboratory Tests 09/04/20 06:06 09/05/20 06:43 Laboratory Tests 09/04/20 06:06: White Blood Count 18.1H, Red Blood Count 4.60, Hemoglobin 13.6, Hematocrit 41.7L, Mean Corpuscular Volume 90.7, Mean Corpuscular Hemoglobin 29.6, Mean Corpuscular Hemoglobin Concent 32.6, Red Cell Distribution Width 13.2, Platelet Count 202, Immature Granulocyte % (Auto) 0.7, Neutrophils (%) (Auto) 83.6H, Lymphocytes (%) (Auto) 7.7L, Monocytes (%) (Auto) 7.3, Eosinophils (%) (Auto) 0.6, Basophils (%) (Auto) 0.1, Neutrophils # (Auto) 15.2H, Lymphocytes # (Auto) 1.4L, Monocytes # (Auto) 1.3H, Eosinophils # (Auto) 0.1, Basophils # (Auto) 0.0, Nucleated Red Blood Cells % (auto) 0.0, Sodium Level 136, Potassium Level 3.9, Chloride Level 100, Carbon Dioxide Level 32, Anion Gap 4L, Blood Urea Nitrogen 27H, Creatinine 0.57L, Glomerular Filtration Rate > 60.0, Fasting Glucose 80, Calcium Level 8.3L, Magnesium Level 2.0 09/05/20 06:43: White Blood Count 21.0H, Red Blood Count 4.63, Hemoglobin 14.2, Hematocrit 41.7L, Mean Corpuscular Volume 90.1, Mean Corpuscular Hemoglobin 30.7, Mean Corpuscular Hemoglobin Concent 34.1, Red Cell Distribution Width 13.2, Platelet Count 209, Immature Granulocyte % (Auto) 0.8, Neutrophils (%) (Auto) 86.8H, Lym phocytes (%) (Auto) 5.6L, Monocytes (%) (Auto) 6.5, Eosinophils (%) (Auto) 0.2, Basophils (%) (Auto) 0.1, Neutrophils # (Auto) 18.2H, Lymphocytes # (Auto) 1.2L, Monocytes # (Auto) 1.4H, Eosinophils # (Auto) 0.0, Basophils # (Auto) 0.0, Nucleated Red Blood Cells % (auto) 0.0, Sodium Level 136, Potassium Level 3.7, Chloride Level 100, Carbon Dioxide Level 30, Anion Gap 6L, Blood Urea Nitrogen 23H, Creatinine 0.57L, Glomerular Filtration Rate > 60.0, Fasting Glucose 78, Calcium Level 8.5L, Magnesium Level 2.0 Assessment and Plan Impression Mr. 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 He has undergone tracheostomy and PEG tube placement and is seen today for consideration of chemoradiation. Of note, he also has a small biopsy proven BCC of the skin in the left submandibular region. 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 Brizuela regarding the diagnosis at hand and available therapeutic options. He appears to be ready for discharge in the coming days, I will confirm this with the primary team. For treatment of his glottic cancer, I would call the primary lesion T3 based on the imaging to date and my exam. It however is quite bulky. I think at this time, he would be an appropriate candidate to proceed with chemoradiation, if he is deemed fit for chemotherapy by medical oncology, who I am told he will see upon discharge. I discussed with him the rationale for chemoradiation versus primary surgery is to preserve the larynx and thus given him a chance at a good functional outcome, there are however some concerning features of his presentation which are adverse prognostic but not contraindication to this approach; emergent tracheostomy placement, weight loss, and the bulk of the tumor all predict a higher chance of needed salvage laryngectomy down the line. In his favor though are the apparent lack of involved nodes based on CT scans, which admittedly for a person of his low BMI are not the ideal study to confirm this. I discussed that I will need a PET-CT to adequately stage and plan his radiation. I have ordered this to be done on an outpatient basis in the next 2 weeks or so. We reviewed that treatment would either be 70 Gy in 35 fractions with weekly chemotherapy, or if chemotherapy is not deemed appropriate for him, I would hyperfractionate his RT and give 81.6 Gy in 1.2 Gy fractions per the superior arm of RTOG 9003. For his basal cell carcinoma on the left submandibular skin, I would include it in the radiation field to curative dose (given the location, incidental dose would already be high even without deliberate inclusion), and so he does not need surgical excision of this lesion. I also suspect that he has a BCC on the nasal tip based on exam and appearance, I would defer treatment of this lesion for now as it is out of field, and may be more amenable to surgery. He agreed to this tentatively. We discussed the logistics of receiving radiation therapy in detail including the need for a 1-time planning session. This can occur soon after discharge. We reviewed the side effects and risks of this approach to treatment including need for laryngectomy, dry mouth, permanent dysphagia, fibrosis, dysgeusia, skin reaction, and pain. After discussing the risks, benefits and alternatives to radiation therapy, Mr. Brizuela was amenable to pursuing radiotherapy. All questions were answered to the patient's satisfaction. We instructed the patient that if there were any questions,concerns or changes in clinical status in the interim to contact us. Recommendations Chemoradiation 70 Gy in 35 fractions pending medical oncology consult If chemotherapy is deemed too toxic, then I would give RT alone 81.6 Gy in 68 BID fractions (hyperfractionated) I will include the incidental submandibular basal cell cancer in the treatment field to curative dose Recommend he have home nutrition support given cachexia Simulation pending discharge Outpatient PET-CT ordered Billing Statement Total time of [53] minutes was spent preparing for the visit [4], obtaining HPI [8], examining the patient [7], reviewing diagnostic tests [7], discussing management options [16], coordinating care [4], and writing this note [10]. AMY BOSWELL MD Sep 05, 2020 11:42
[2020-09-05 14:00] VITALS: BP 127/66
--- NOTE | 2020-09-05 16:18 | IPNPDOC ---
Subjective Date Seen The patient was seen on 09/05/20. Subjective Chief Complaint/HPI Stable, this am, no acute events. Objective Physical Examination General Exam: Positive: Alert, No Acute Distress Eye Exam: Positive: PERRLA, Conjunctiva & lids normal, EOMI; Negative: Sclera icteric ENT Exam: Positive: Atraumatic, Mucous membr. moist/pink, Other ENT (tracheostomy) Neck Exam: Positive: Supple; Negative: JVD, thyromegaly Chest Exam: Positive: Clear to auscultation, Normal air movement Heart Exam: Positive: Rate Normal, Regular Rhythm, Normal S1, Normal S2; Negative: Murmurs, Rubs Telemetry: Positive: No significant arrhythmia Abdomen Exam: Positive: Normal bowel sounds, Soft; Negative: Tenderness, Hepatospenomegaly Male Exam: Positive: Normal Genital Exam Extremity Exam: Positive: Normal pulses; Negative: Clubbing, Cyanosis, Edema Skin Exam: Positive: Nl turgor and temperature; Negative: Rash, Breakdown Neuro Exam: Positive: Normal Gait, Normal Speech, Cranial Nerves 3-12 NL, Reflexes 2+ Psych Exam: Positive: Mental status NL, Mood NL, Oriented x 3 Assessment /Plan Assessment s/p Acute hypoxic respiratory failure - likely 2/2 airway obstruction 2/2 lar yngeal mass - Patient is currently on trach collar for humidity only requiring essentially 21-25% oxygen (room air) - c/p Tracheostomy on 08/25 with ENT, Dr. Veloz - c/w Trach care and teaching Laryngeal mass - likely 2/2 Squamous cell carcinoma - Biopsy 08/25: Squamous cell carcinoma, moderately differentiated - Patient will need outpatient follow up with Oncology for continued therapy - Discussed case with Dr. Colon; will have outpatient follow up on discharge within 7 days, will also arrange for ChemoRT follow up - Advised to get CT neck / head for further staging / workup Aspiration - Speech therapy has recommended strict NPO - s/p PEG tube placement on 08/30/2020 - c/w TPN nutrition for now - General surgery on consultation; appreciate their input Leukocytosis - possibly 2/2 corticosteroids, less likely 2/2 PNA - Improving - Clinically has had improvement - No fevers noted - CRP trending down - s/p Solumedrol; c/w Prednisone Pneumonia - possibly 2/2 aspiration - Has not reported any significant cough this morning - He remains hemodynamically stable / No fevers noted - Imaging with evidence of infiltrate at RLL - c/w Moxifloxacin (Day #6); Will transition to via PEG for completion of antibiotic course Severe protein-calorie malnutrition - 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 - BMI of 14 Acute on chronic COPD exacerbation - No evidence of wheezing this morning - c/w Prednisone; s/p Solumedrol - c/w Inhaled therapy as ordered Active tobacco abuse - Advised smoking cessation - c/w Nicotine patch DVT prophylaxis - c/w Lovenox Disposition: - Will transition to [facility] until trach supplies are available for discharge - Home with services once trach supplies are available Plan/VTE VTE Prophylaxis Ordered?: No VS, I&O, 24H, Fishbone Vital Signs/I&O Vital Signs Date Time Temp Pulse Resp B/P (MAP) Pulse Ox O2 Delivery O2 Flow Rate FiO2 09/05/20 14:00 97.9 77 18 127/66 (86) 98 Trach Collar 5.0 28 I&O- Last 24 Hours up to 6 AM0 09/05/20 06:00 Intake Total 0 ml Output Total 1550 ml Balance -1550 ml Laboratory Data 24H LABS Laboratory Tests 2 09/05/20 06:43: Immature Granulocyte % (Auto) 0.8, Neutrophils (%) (Auto) 86.8H, Lymphocytes (%) (Auto) 5.6L, Monocytes (%) (Auto) 6.5, Eosinophils (%) (Auto) 0.2, Basophils (%) (Auto) 0.1, Neutrophils # (Auto) 18.2H, Lymphocytes # (Auto) 1.2L, Monocytes # (Auto) 1.4H, Eosinophils # (Auto) 0.0, Basophils # (Auto) 0.0, Nucleated Red Blood Cells % (auto) 0.0, Anion Gap 6L, Glomerular Filtration Rate > 60.0, Calcium Level 8.5L, Magnesium Level 2.0 09/05/20 11:56: Bedside Glucose (Misc Panel) 87 CBC/BMP Laboratory Tests 09/05/20 06:43 Microbiology Microbiology 09/02/20 Blood Culture - Preliminary, Resulted No Growth after 48 hours. All Specime... 09/02/20 Gram Stain - Final, Complete 09/02/20 Sputum Culture - Final, Complete JOJO GARSIA MD Sep 05, 2020 16:18
[2020-09-06] MEDS: LEVALBUTEROL 1.25 MG/0.5 ML CONCENTRATE NEB INH SCH ×7 (03:32→23:46)
[2020-09-06 05:43] VITALS: BP 112/58
[2020-09-06] MEDS: SODIUM CHLORIDE 0.9% INJ 10 ML SYR IV SCH ×2 (05:49→16:58)
[2020-09-06 07:11] LABS: BASO % 0.2 % (0.0-1.0); EOS % 0.3 % (0.0-3.0); LYMPH # 1.3 10^3/uL (1.5-5.0); LYMPH % 11.1 % (24.0-44.0); MEAN CORPUSCULAR HEMOGLOBIN 29.8 pg (27.0-33.0); MEAN CORPUSCULAR HGB CONC 32.6 g/dl (32.0-36.5); MEAN CORPUSCULAR VOLUME 91.5 fl (80.0-96.0); MONO # 0.9 10^3/uL (0.0-0.8); MONO % 7.4 % (2.0-8.0); NEUTROPHILS # 9.5 10^3/uL (1.5-8.5); NEUTROPHILS % 80.5 % (36.0-66.0); PLATELET COUNT, AUTOMATED 236 10^3/uL (150-450); RED BLOOD COUNT 5.03 10^6/uL (4.30-6.10); WHITE BLOOD COUNT 11.8 10^3/uL (4.0-10.0)
[2020-09-06 07:31] LABS: BLOOD UREA NITROGEN 25 MG/DL (7-18); CALCIUM LEVEL 8.8 MG/DL (8.8-10.2); CARBON DIOXIDE LEVEL 34 MEQ/L (21-32); CHLORIDE LEVEL 100 MEQ/L (98-107); CREATININE FOR GFR 0.64 MG/DL (0.70-1.30); GLOMERULAR FILTRATION RATE > 60.0 (>49); GLUCOSE, FASTING 66 MG/DL (70-100); MAGNESIUM LEVEL 2.3 MG/DL (1.8-2.4); POTASSIUM SERUM 3.8 MEQ/L (3.5-5.1); SODIUM LEVEL 138 MEQ/L (136-145)
[2020-09-06] MEDS: predniSONE 20 MG TAB FT SCH (09:10)
[2020-09-06] MEDS: NICOTINE 14 MG/24 HR TRANSDERMAL TD SCH (09:11)
[2020-09-06] MEDS: ENOXAPARIN 40MG/0.4ML SYRINGE (J1650 PER 10MG) SC SCH (09:11)
[2020-09-06] MEDS: BACITRACIN OINTMENT 30GM TUBE TOP SCH ×2 (09:12→20:47)
--- NOTE | 2020-09-06 12:46 | IPNPDOC ---
Subjective Date Seen The patient was seen on 09/06/20. Subjective Chief Complaint/HPI Patient is defined this a.m. he has no complaints. He is awaiting placement Objective Physical Examination General Exam: Positive: Alert, No Acute Distress Eye Exam: Positive: PERRLA, Conjunctiva & lids normal, EOMI; Negative: Sclera icteric ENT Exam: Positive: Atraumatic, Mucous membr. moist/pink, Other ENT (tracheostomy) Neck Exam: Positive: Supple; Negative: JVD, thyromegaly Chest Exam: Positive: Clear to auscultation, Normal air movement Heart Exam: Positive: Rate Normal, Regular Rhythm, Normal S1, Normal S2; Negative: Murmurs, Rubs Telemetry: Positive: No significant arrhythmia Abdomen Exam: Positive: Normal bowel sounds, Soft; Negative: Tenderness, Hepatospenomegaly Male Exam: Positive: Normal Genital Exam Extremity Exam: Positive: Normal pulses; Negative: Clubbing, Cyanosis, Edema Skin Exam: Positive: Nl turgor and temperature; Negative: Rash, Breakdown Neuro Exam: Positive: Normal Gait, Normal Speech, Cranial Nerves 3-12 NL, Reflexes 2+ Psych Exam: Positive: Mental status NL, Mood NL, Oriented x 3 Assessment /Plan Assessment s/p Acute hypoxic respiratory failure - likely 2/2 airway obstruction 2/2 laryngeal mass - Patient is currently on trach collar for humidity only requiring essentially 21-25% oxygen (room air) - c/p Tracheostomy on 08/25 with ENT, Dr. Veloz - c/w Trach care and teaching Laryngeal mass - likely 2/2 Squamous cell carcinoma - Biopsy 08/25: Squamous cell carcinoma, moderately differentiated - Patient will need outpatient follow up with Oncology for continued therapy - Discussed case with Dr. Colon; will have outpatient follow up on discharge within 7 days, will also arrange for ChemoRT follow up - Advised to get CT neck / head for further staging / workup Aspiration - Speech therapy has recommended strict NPO - s/p PEG tube placement on 08/30/2020 - c/w TPN nutrition for now - General surgery on consultation; appreciate their input Leukocytosis - possibly 2/2 corticosteroids, less likely 2/2 PNA - Improving - Clinically has had improvement - No fevers noted - CRP trending down - s/p Solumedrol; c/w Prednisone Pneumonia - possibly 2/2 aspiration - Has not reported any significant cough this morning - He remains hemodynamically stable / No fevers noted - Imaging with evidence of infiltrate at RLL - completed Moxifloxacin x 7 days Severe protein-calorie malnutrition - 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 - BMI of 14 Acute on chronic COPD exacerbation - No evidence of wheezing this morning - c/w Prednisone; s/p Solumedrol - c/w Inhaled therapy as ordered Active tobacco abuse - Advised smoking cessation - c/w Nicotine patch DVT prophylaxis - c/w Lovenox Disposition: - Will transition to [facility] until trach supplies are available for discharge - Awaiting rehab placement Plan/VTE VTE Prophylaxis Ordered?: Yes VS, I&O, 24H, Fishbone Vital Signs/I&O Vital Signs Date Time Temp Pulse Resp B/P (MAP) Pulse Ox O2 Delivery O2 Flow Rate FiO2 09/06/20 09:00 5.0 28 09/06/20 05:43 97.3 65 18 112/58 (76) 100 Trach Collar I&O- Last 24 Hours up to 6 AM 09/06/20 06:00 Intake Total 0 ml Output Total 975 ml Balance -975 ml Laboratory Data 24H LABS Laboratory Tests 2 09/05/20 16:59: Bedside Glucose (Misc Panel) 96 09/06/20 06:40: Immature Granulocyte % (Auto) 0.5, Neutrophils (%) (Auto) 80.5H, Lymphocytes (%) (Auto) 11.1L, Monocytes (%) (Auto) 7.4, Eosinophils (%) (Auto) 0.3, Basophils (%) (Auto) 0.2, Neutrophils # (Auto) 9.5H, Lymphocytes # (Auto) 1.3L, Monocytes # (Auto) 0.9H, Eosinophils # (Auto) 0.0, Basophils # (Auto) 0.0, Nucleated Red Blood Cells % (auto) 0.0, Anion Gap 4L, Glomerular Filtration Rate > 60.0, Calcium Level 8.8, Magnesium Level 2.3 CBC/BMP Laboratory Tests 09/06/20 06:40 Microbiology Microbiology 09/02/20 Blood Culture - Preliminary, Resulted No Growth after 72 hours. All specime... 09/02/20 Gram Stain - Final, Complete 09/02/20 Sputum Culture - Final, Complete JOJO GARSIA MD Sep 06, 2020 12:46
[2020-09-07] MEDS: LEVALBUTEROL 1.25 MG/0.5 ML CONCENTRATE NEB INH SCH ×5 (03:48→21:52)
[2020-09-07 05:54] VITALS: BP 110/60
[2020-09-07] MEDS: SODIUM CHLORIDE 0.9% INJ 10 ML SYR IV SCH ×2 (05:58→18:18)
[2020-09-07 07:46] LABS: BASO % 0.2 % (0.0-1.0); HEMATOCRIT 42.7 % (42.0-52.0); HEMOGLOBIN 14.2 g/dl (13.5-17.5); LYMPH # 1.1 10^3/uL (1.5-5.0); LYMPH % 5.8 % (24.0-44.0); MEAN CORPUSCULAR HGB CONC 33.3 g/dl (32.0-36.5); MEAN CORPUSCULAR VOLUME 90.1 fl (80.0-96.0); MONO # 1.2 10^3/uL (0.0-0.8); MONO % 6.1 % (2.0-8.0); NEUTROPHILS # 17.3 10^3/uL (1.5-8.5); NEUTROPHILS % 87.4 % (36.0-66.0); PLATELET COUNT, AUTOMATED 223 10^3/uL (150-450); RED BLOOD COUNT 4.74 10^6/uL (4.30-6.10); WHITE BLOOD COUNT 19.8 10^3/uL (4.0-10.0)
[2020-09-07 07:57] LABS: BLOOD UREA NITROGEN 24 MG/DL (7-18); CALCIUM LEVEL 8.8 MG/DL (8.8-10.2); CARBON DIOXIDE LEVEL 30 MEQ/L (21-32); CHLORIDE LEVEL 102 MEQ/L (98-107); CREATININE FOR GFR 0.65 MG/DL (0.70-1.30); GLOMERULAR FILTRATION RATE > 60.0 (>49); GLUCOSE, FASTING 74 MG/DL (70-100); MAGNESIUM LEVEL 2.2 MG/DL (1.8-2.4); POTASSIUM SERUM 4.1 MEQ/L (3.5-5.1); SODIUM LEVEL 137 MEQ/L (136-145)
[2020-09-07] MEDS: predniSONE 20 MG TAB FT SCH (10:39)
[2020-09-07] MEDS: BACITRACIN OINTMENT 30GM TUBE TOP SCH ×2 (10:40→20:15)
[2020-09-07] MEDS: ENOXAPARIN 40MG/0.4ML SYRINGE (J1650 PER 10MG) SC SCH (10:40)
[2020-09-07] MEDS: NICOTINE 14 MG/24 HR TRANSDERMAL TD SCH (10:40)
--- NOTE | 2020-09-07 10:59 | IPNPDOC ---
Subjective Date Seen The patient was seen on 09/07/20. Subjective Chief Complaint/HPI Raymond had a eventful morning where history popped out and he needed to have this emergency placed by the ENT physician. He is doing well at this time without any breathing difficulties Objective Physical Examination General Exam: Positive: Alert, No Acute Distress Eye Exam: Positive: PERRLA, Conjunctiva & lids normal, EOMI; Negative: Sclera icteric ENT Exam: Positive: Atraumatic, Mucous membr. moist/pink, Other ENT (tracheostomy) Neck Exam: Positive: Supple; Negative: JVD, thyromegaly Chest Exam: Positive: Clear to auscultation, Normal air movement Heart Exam: Positive: Rate Normal, Regular Rhythm, Normal S1, Normal S2; Negative: Murmurs, Rubs Telemetry: Positive: No significant arrhythmia Abdomen Exam: Positive: Normal bowel sounds, Soft; Negative: Tenderness, Hepatospenomegaly Male Exam: Positive: Normal Genital Exam Extremity Exam: Positive: Normal pulses; Negative: Clubbing, Cyanosis, Edema Skin Exam: Positive: Nl turgor and temperature; Negative: Rash, Breakdown Neuro Exam: Positive: Normal Gait, Normal Speech, Cranial Nerves 3-12 NL, Reflexes 2+ Psych Exam: Positive: Mental status NL, Mood NL, Oriented x 3 Assessment /Plan Assessment s/p Acute hypoxic respiratory failure - likely 2/2 airway obstruction 2/2 laryngeal mass - Patient is currently on trach collar for humidity only requiring essentially 21-25% oxygen (room air) - c/p Tracheostomy on 08/25 with ENT, Dr. Veloz - c/w Trach care and teaching Laryngeal mass - likely 2/2 Squamous cell carcinoma - Biopsy 08/25: Squamous cell carcinoma, moderately differentiated - Patient will need outpatient follow up with Oncology for continued therapy - Discussed case with Dr. Colon; will have outpatient follow up on discharge within 7 days, will also arrange for ChemoRT follow up - Advised to get CT neck / head for further staging / workup Aspiration - Speech therapy has recommended strict NPO - s/p PEG tube placement on 08/30/2020 - c/w TPN nutrition for now - General surgery on consultation; appreciate their input Leukocytosis - possibly 2/2 corticosteroids, less likely 2/2 PNA - Improving - Clinically has had improvement - No fevers noted - CRP trending down - s/p Solumedrol; c/w Prednisone Pneumonia - possibly 2/2 aspiration - Has not reported any significant cough this morning - He remains hemodynamically stable / No fevers noted - Imaging with evidence of infiltrate at RLL - completed Moxifloxacin x 7 days Severe protein-calorie malnutrition - 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 - BMI of 14 Acute on chronic COPD exacerbation - No evidence of wheezing this morning - c/w Prednisone; s/p Solumedrol - c/w Inhaled therapy as ordered Active tobacco abuse - Advised smoking cessation - c/w Nicotine patch DVT prophylaxis - c/w Lovenox Disposition: - discharge to rehab in am Plan/VTE VTE Prophylaxis Ordered?: Yes VS, I&O, 24H, Fishbone Vital Signs/I&O Vital Signs Date Time Temp Pulse Resp B/P (MAP) Pulse Ox O2 Delivery O2 Flow Rate FiO2 09/07/20 05:54 97.8 72 18 110/60 (77) 94 Trach Collar 5.0 28 I&O- Last 24 Hours up to 6 AM 09/07/20 06:00 Intake Total 0 ml Output Total 750 ml Balance -750 ml Laboratory Data 24H LABS Laboratory Tests 2 09/07/20 07:10: Immature Granulocyte % (Auto) 0.5, Neutrophils (%) (Auto) 87.4H, Lymphocytes (%) (Auto) 5.8L, Monocytes (%) (Auto) 6.1, Eosinophils (%) (Auto) 0.0, Basophils (%) (Auto) 0.2, Neutrophils # (Auto) 17.3H, Lymphocytes # (Auto) 1.1L, Monocytes # (Auto) 1.2H, Eosinophils # (Auto) 0.0, Basophils # (Auto) 0.0, Nucleated Red Blood Cells % (auto) 0.0, Anion Gap 5L, Glomerular Filtration Rate > 60.0, Calcium Level 8.8, Magnesium Level 2.2 CBC/BMP Laboratory Tests 09/07/20 07:10 Microbiology Microbiology 09/02/20 Blood Culture - Preliminary, Resulted No Growth after 72 hours. All specime... 09/02/20 Gram Stain - Final, Complete 09/02/20 Sputum Culture - Final, Complete JOJO GARSIA MD Sep 07, 2020 10:59
[2020-09-07] MEDS: SCOPOLAMINE 1MG TRANSDERMAL PATCH TOP SCH (18:17)
[2020-09-08] MEDS: LEVALBUTEROL 1.25 MG/0.5 ML CONCENTRATE NEB INH SCH ×4 (00:59→11:27)
[2020-09-08] MEDS: SODIUM CHLORIDE 0.9% INJ 10 ML SYR IV SCH (05:24)
[2020-09-08 06:00] VITALS: BP 100/57
[2020-09-08 06:49] LABS: HEMATOCRIT 42.2 % (42.0-52.0); HEMOGLOBIN 13.9 g/dl (13.5-17.5); MEAN CORPUSCULAR HGB CONC 32.9 g/dl (32.0-36.5); MEAN CORPUSCULAR VOLUME 90.9 fl (80.0-96.0); PLATELET COUNT, AUTOMATED 242 10^3/uL (150-450); RED BLOOD COUNT 4.64 10^6/uL (4.30-6.10); WHITE BLOOD COUNT 14.2 10^3/uL (4.0-10.0)
[2020-09-08] MEDS: predniSONE 20 MG TAB FT SCH (09:15)
[2020-09-08] MEDS: ENOXAPARIN 40MG/0.4ML SYRINGE (J1650 PER 10MG) SC SCH (09:17)
[2020-09-08] MEDS: NICOTINE 14 MG/24 HR TRANSDERMAL TD SCH (09:17)
[2020-09-08] MEDS: BACITRACIN OINTMENT 30GM TUBE TOP SCH (09:18)
[2020-09-08] MEDS ORDERED: ALBU83IN NEB (09:43)
--- NOTE | 2020-09-08 10:20 | DS.PDOC ---
Discharge Summary General Date of Admission Aug 25, 2020 at 09:20 Date of Discharge 09/08/20 Primary Care Physician: A Attending Physician: JOJO GARSIA MD Specialist/Consultants Involve: Dale Veloz MD Specialist/Consultants Involve Dr. Alok Madrigal Discharge Summary PROCEDURES PERFORMED DURING STAY: 1. Status post percutaneous gastrostomy tube placement 2. Status post tracheostomy 3. Right arm PICC line placement ADMITTING DIAGNOSES: 1. Acute airway compromise secondary to laryngeal mass: 2. Acute COPD exacerbation 3. Active tobacco abuse DISCHARGE DIAGNOSES: 1. s/p Acute hypoxic respiratory failure - likely 2/2 airway obstruction 2/2 laryngeal mass 2. s/p Tracheostomy on 08/25 with ENT, Dr. Veloz 3. Laryngeal mass - likely 2/2 Squamous cell carcinoma 4. s/p biopsy of laryngeal mass 5. Right lower lobe aspiration Pneumonia 6. s/p PEG tube placement on 08/30/[address] Dickinson 7. Leukocytosis - possibly 2/2 corticosteroids 8. Severe protein-calorie malnutrition - 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, BMI of 14 9. Acute on chronic COPD exacerbation 10. Active tobacco abuse HISTORY OF PRESENT ILLNESS: This 60-year-old active smoker of half a pack a day for 35 years, COPD not home oxygen or steroid dependent was seen in the Emergency Room on August 19 due to complaints of sore throat, wheezing and shortness of breath was sent home and returns again today with worsening sore throat, difficulty breathing and worsening wheezing. Patient denies any cough productive of sputum, fever, chills, nausea, vomiting, chest pain, pressure or tightness, lightheadedness or near syncopal episode at home. In the ER patient was noted to have mild respiratory distress, but was saturating 94% on room air; stridor noted on examination. CT of the neck shows soft tissue mass effect in and about the level of the glottis consistent with laryngeal neoplasm with asymmetric calcification of thyroid cartilage on the left and extension of the hypopharynx suggestive of airway narrowing. 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 Hospitalist was asked to admit the patient emergently for airway compromise secondary to possible laryngeal neoplasm. ENT, Dr. Veloz had done a direct laryngoscopy and will bring the patient to the operating room emergently. Patient otherwise denies any prior history of CAD, NM, congestive heart failure. Chest x-ray is clear with no heart failure or acute cardiopulmonary process. He denies any chest pain, pressure or tightness, near syncopal episode at home. He otherwise denies any weight changes, dysphagia, odynophagia, bright red blood per rectum, melena, black tarry stool, coffee ground emesis or hematemesis. No dysuria, urgency or frequency, fever or chills, bilateral upper and lower extremity paresthesias or weakness. No depression or anxiety. Complains of sore throat with no pharyngeal discharge, fever or chills at home. No rhinorrhea. HOSPITAL COURSE: Raymond is a 60-year-old gentleman with history of COPD with chronic tobacco use who presented to the hospital with acute onset shortness of breath with associated sore throat and wheezing. He was discovered to have stridor with CT neck imaging indicating that he had a laryngeal mass compromising his airway. He was taken for emergent tracheostomy by Dr. Veloz. Patient was admitted to the hospital service for treatment of acute on chronic COPD ex exacerbation, aspiration pneumonia and further workup of his laryngeal mass. Patient was treated with IV antibiotics and completed his full course of antibiotics while hospitalized. He received IV steroids and was transitioned to oral prednisone and subsequently weaned off of them. He's been counseled on tobacco cessation. He was seen by speech therapy recommended for total nothing by mouth status, general surgery was consult the patient underwent a PEG tube placement. He started on tube feeds which she has been tolerating well. For his severe protein calorie malnutrition patient was attended to by dietary service. His tube feeds have been adjusted to improve his caloric intake. Biopsy results of the laryngeal mass indicated that this was squamous cell carcinoma, patient underwent imaging of his chest as well as neck and abdomen for further staging. He was seen by Dr. Galloway of radiation oncology while hospitalized, there are plans for follow-up as an outpatient for PET scan, as well as evaluation by oncology as an outpatient. The patient did have issues with his tracheostomy coming out which required ENT to place another one at bedside. He is had no complications since that time. He is been tolerating trach mask and has been educated on suctioning his trach tube as needed. Patient will be discharged to [facility] today in stable condition. DISCHARGE MEDICATIONS: Please see below. ALLERGIES: Please see below. PHYSICAL EXAMINATION ON DISCHARGE: VITAL SIGNS: Please see below. GENERAL: Patient is alert and oriented 3, he is cachectic, he is resting comfortably, he is in no acute distress, his tracheostomy is in place he is using his treatment mask. HEENT: Head is atraumatic, PERRLA, EOMI, and naris patent bilaterally with no visible drainage, oropharynx is clear NECK: Tracheostomy is in place with no visible exsanguination, he is breathing comfortably, no visible pustular discharge or erythema noted at tracheostomy stoma CARDIOVASCULAR EXAMINATION: Heart S1-S2, no audible murmurs rubs or gallops RESPIRATORY EXAMINATION: Lungs are clear bilaterally, with symmetric chest wall rise ABDOMINAL EXAMINATION: Abdomen is scaphoid in appearance, soft to touch without any palpable tenderness, patient has audible bowel sounds EXTREMITIES: No edema clubbing or cyanosis is noted in the extremities SKIN: Skin is without rash NEUROLOGICAL EXAMINATION: Cranial nerves II through XII are grossly intact, patient has no focal neurologic deficits PSYCHIATRIC EXAMINATION: Patient is alert and oriented 3, normal mood LABORATORY DATA: Please see below. IMAGING: Chest x-ray done on 08/20/2020 showed no acute cardiopulmonary process Neck x-ray done on 08/25/2020 showed evidence of transient lateral neoplasm with some degree of airway narrowing Chest x-ray done on 08/25/2020 showed status post tracheostomy which appears to be in satisfactory position CT of the abdomen and pelvis without IV contrast showed no acute abdominal pelvic pathology CT chest without contrast showed tracheostomy in satisfactory position, extensive subcutaneous emphysema and pneumomediastinum and very subtle early left lower lobe infiltrate CT head with contrast showed no evidence of intracranial metastatic disease CT of the neck with contrast showed that the images remain motion degraded at the level of pharynx findings remain present considered consistent with glottal tumor, strep mediastinum and subcutaneous emphysema persist PROGNOSIS: Stable ACTIVITY: As tolerated DIET: Tube feeds: Jevity 1.5 at 40ml/hr with free water flushes 120 mL every 6 hours, hold tube feeds at night DISPOSITION: Patient is discharged to [facility] DISCHARGE INSTRUCTIONS: 1. Patient is to follow-up with Gen. surgery, ENT and oncology along with radiation oncology within the next 1-2 weeks DISCHARGE CONDITION: Stable TIME SPENT ON DISCHARGE: 30 minutes. Vital Signs/I&Os Vital Signs Date Time Temp Pulse Resp B/P (MAP) Pulse Ox O2 Delivery O2 Flow Rate FiO2 09/08/20 06:00 97.8 86 20 100/57 (71) 92 Trach Collar 5.0 09/07/20 21:00 28 I&O- Last 24 Hours up to 6 AM 09/08/20 05:59 Intake Total 0 ml Output Total 800 ml Balance -800 ml Laboratory Data Labs 24H Laboratory Tests 2 09/08/20 06:13: Nucleated Red Blood Cells % (auto) 0.0 09/08/20 09:53: CBC/BMP Laboratory Tests 09/08/20 06:13 Microbiology Microbiology 09/02/20 Blood Culture - Final, Complete NO GROWTH AFTER 5 DAYS 09/02/20 Gram Stain - Final, Complete 09/02/20 Sputum Culture - Final, Complete Discharge Medications Scheduled Scopolamine (Transderm-Scop) 1 Each Patch.td.3, 1 MG TOP Q72H Scheduled PRN Albuterol Sulf (Albuterol Sulfate) 2.5 Mg/3 Ml Vial.neb, 1 VIAL NEB Q4HP PRN for wheezing Allergies Coded Allergies: Penicillins (Verified Allergy, Intermediate, rash, 05/01/20) JOJO GARSIA MD Sep 08, 2020 10:15
== END 2020-09-08 12:00 | DRG 98 ==
LOC: EDBD 06:55 → M ED 06:55 → M ED INP 09:20 → M ICU 13:10 → M PCU 08-26 15:15 → M MS5PR 08-31 17:45
PROVIDERS: ADMIT General Practice; ATTEND Internal Medicine
PROC: 0B110F4 Bypass Trachea to Cutaneous with Tracheostomy Device, Open Approach (ICD-10-PCS; principal; 2020-08-27)
PROC: 0CBS8ZX Excision of Larynx, Via Natural or Artificial Opening Endoscopic, Diagnostic (ICD-10-PCS; 2020-08-27)
PROC: 0HB4XZX Excision of Neck Skin, External Approach, Diagnostic (ICD-10-PCS; 2020-08-27)
PROC: 02HV33Z Insertion of Infusion Device into Superior Vena Cava, Percutaneous Approach (ICD-10-PCS; 2020-08-29)
PROC: 0DH63UZ Insertion of Feeding Device into Stomach, Percutaneous Approach (ICD-10-PCS; 2020-08-30)
DX: C32.9 Malignant neoplasm of larynx, unspecified (principal); J96.01 Acute respiratory failure with hypoxia; J69.0 Pneumonitis due to inhalation of food and vomit; E43 Unspecified severe protein-calorie malnutrition; R64 Cachexia; C44.310 Basal cell carcinoma of skin of unspecified parts of face; J44.1 Chronic obstructive pulmonary disease with (acute) exacerbation; J44.0 Chronic obstructive pulmonary disease with (acute) lower respiratory infection; J98.8 Other specified respiratory disorders; Z68.1 Body mass index [BMI] 19.9 or less, adult; T81.82XA Emphysema (subcutaneous) resulting from a procedure, initial encounter; R63.6 Underweight; F17.200 Nicotine dependence, unspecified, uncomplicated; K44.9 Diaphragmatic hernia without obstruction or gangrene

== ENCOUNTER → 2020-10-09 | Outpatient (CLI) | payer OTHER ==
[~2020-10-09] MED LIST changes: +ALBU83IN NEB; +DOXY100T27 PO; +PRED10TA2 PO; +PROAAER10 INH; +SCOP1PAT2 TOP
--- NOTE | 2020-10-09 13:18 | REP ---
INDICATION: STAGING MALIGNANT NEOPLASM OF LARYNX C32.8. COMPARISON: No prior PET CTs for comparison. Previous CT scan of the neck 09/01/2020 chest, abdomen, and pelvis 08/26/2020 reviewed TECHNIQUE: After the intravenous administration of 8.4 mCi of FDG 18 triplane whole-body PET-CT was performed from the skull base to the mid thigh. FINDINGS: There is extensive hypermetabolic activity seen circumferential to the trachea at the level of the thyroid cartilage. The maximal SUV value of this is 7.95. There are no other areas of abnormal hypermetabolic activity seen in the neck, chest, abdomen, or pelvis. IMPRESSION: Abnormal hypermetabolism and mass density in the neck consistent with the patient's diagnosis of a glottic neoplasm. <Electronically signed by Wood Alvarez > 10/09/20 [id number]
== END ==
LOC: M PLARAD 09:38
PROVIDERS: ATTEND General Practice
DX: C32.8 Malignant neoplasm of overlapping sites of larynx (principal)
CPT/HCPCS: 78815; A9552

== ENCOUNTER → 2021-01-19 | Outpatient (CLI) | payer MEDICAID ==
[~2021-01-19] MED LIST changes: +DOXY-443; +DOXY-443 PO; -DOXY1CAP62 PO; +PRED20TA; -SCOP1PAT2 TOP; +TRAN1DIS4 TOP
--- NOTE | 2021-01-19 09:31 | RADONC ---
Radiation Oncology Hx/FUP Radiation Oncology Hx/FUP Date of Service: Jan 19, 2021 Pt Identifier Raymond Brizuela is a 60 year old male former smoker seen for a followup visit today at the department of radiation oncology for a history of locally advanced glottic SCC. He initially presented to [facility] ED on 08/25/20 in respiratory distress, he underwent tacheostomy and PEG placement he was clinically T3N0M0 at that time and also had a symptomatic BCC of the left submandibular skin. Initial plan was for primary chemoradiation to preserve the larynx. However he had a prolonged hospital stay followed by a prolonged rehabilitation stint in [place], [place] wherein he was unable to receive cancer treatment. During the following 2+ months his tumor progressed and he eventually was referred for laryngectomy. He had total laryngectomy and excision of the left submandibular BCC with Dr. Bridges on 12/18/20 with pathology revealing [id number] stage PARVIN disease. Margins were negative. He subsequently returned to rehab and has since been discharged home to [place]. He is seen today for adjuvant RT for his laryngeal cancer and definitive RT to a newly symptomatic BCC on the nasal tip. Diagnosis/Treatment History Oncologic History As above Recent data: 10/09/20 PET-CT FINDINGS: There is extensive hypermetabolic activity seen circumferential to the trachea at the level of the thyroid cartilage. The maximal SUV value of this is 7.95. There are no other areas of abnormal hypermetabolic activity seen in the neck, chest, abdomen, or pelvis. IMPRESSION: Abnormal hypermetabolism and mass density in the neck consistent with the patient's diagnosis of a glottic neoplasm. 12/18/20 Pathology Diagnosis A) LARYNX AND THYROID, TOTAL LARYNGECTOMY AND HEMITHYROIDECTOMY: INVASIVE SQUAMOUS CELL CARCINOMA (See Synoptic Report). PORTION OF THYROID WITH MILD CHRONIC INFLAMMATION. B) LYMPH NODES (19), LEFT LEVELS 2-4, SELECTIVE NECK DISSECTION: NEGATIVE FOR TUMOR. Synoptic Report: Specimen Procedure: Total laryngectomy Tumor Tumor Focality: Unifocal Tumor Site: Glottis and subglottis Transglottic Extension: Present Tumor Laterality: Right; Left Tumor Size: 3.5 Centimeters (cm) Histologic Type: Squamous cell carcinoma, conventional (keratinizing) Histologic Grade: G2, moderately differentiated Tumor Extent: Tumor invades through thyroid and cricoid cartilage, involves skeletal muscle Lymphovascular Invasion: Not identified Perineural Invasion: Not identified Margins Margin Status for Invasive Tumor: All margins negative for invasive tumor Distance from Invasive Tumor to Closest Margin: 1.0 mm Closest Margin(s) to Invasive Tumor: anterior soft tissue margin Regional Lymph Nodes Regional Lymph Node Status: All regional lymph nodes negative for tumor Number of Lymph Nodes Examined: 19 Pathologic Stage Classification (pTNM, AJCC 8th Edition) pT Category: pT4a pN Category: pN0 Interval History Raymond reports he is feeling well. Using electrolarynx. Taking some PO. No pain in the neck. Has a bothersome enlarging bleeding lesion on the nasal tip. PEG tube and trach functioning well. Back home in [place], taking care of himself. 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 [id number] stage I Social History: Former smoker 30+ pack year Does not drink Allergies / Meds Allergies: Coded Allergies: Penicillins (Verified Allergy, Intermediate, rash, 05/01/20) Home Meds Active Scripts Albuterol Sulf (Albuterol Sulfate) 2.5 Mg/3 Ml Vial.neb, 1 VIAL NEB Q4HP PRN for wheezing, #50 VIAL Prov:JOJO GARSIA MD 09/08/20 Scopolamine (Transderm-Scop) 1 Each Patch.td.3, 1 MG TOP Q72H for 30 Days, #10 PATCH Prov:GARIMA WRIGHT MD 09/01/20 Reported Medications Doxycycline Monohydrate (Doxycycline Monohydrate) 100 Mg Capsule 01/19/21 Prednisone (Prednisone) 20 Mg Tablet 01/19/21 Review of Systems Review of Systems General: Reports: ROS Unobtainable (Limited speaking ability) Physical Examination Vital Signs Ht 66" Wt 122.2 lbs BMI 19.7 T 97.6 P 87 RR 20 BP 99/68 O2 99% Pain 0 Fatigue 0 General Exam: Alert, Cooperative, No Acute Distress Eye Exam: PERRRUCHI SHORT ENT EXAM: Other ENT (Oral Cavity: Edentulous, no visible or palpable lesions in oral cavity of oropharnx. Nose on the right aspect of the nasal tip there is a ~1.9 cm nodular basal cell carcinoma which is bleeding.) Neck Exam: Negative: Supple (Neck tissues firm/drawn. Incisions well healed. No palpable adenopathy. Trach site clean, no leak from flange.) Chest Exam: Clear to auscultation, Normal air movement Heart Exam: Rate Normal, Regular Rhythm Abdomen Exam: Soft, Other (PEG site CDI) Extremity Exam: Negative: Edema Skin Exam: Nl turgor and temperature Neuro Exam: Normal Gait, Cranial Nerves 3-12 NL Psych Exam: Mental status NL Diagnostic and Laboratory Diagnostic Review Radiologic images, relevant labs and pathology reports were personally reviewed and discussed with Mr. Brizuela. Assessment and Plan Impression Assessment Mr. Brizuela is a 60 year old male with a history of former smoker seen for a followup visit today at the department of radiation oncology for a history of locally advanced glottic SCC. He initially presented to [facility] ED on 08/25/20 in respiratory distress, he underwent tacheostomy and PEG placement he was clinically T3N0M0 at that time and also had a symptomatic BCC of the left submandibular skin. Initial plan was for primary chemoradiation to preserve the larynx. However he had a prolonged hospital stay followed by a prolonged rehabilitation stint in [place], [place] wherein he was unable to receive cancer roddy tment. During the following 2+ months his tumor progressed and he eventually was referred for laryngectomy. He had total laryngectomy and excision of the left submandibular BCC with Dr. Bridges on 12/18/20 with pathology revealing [id number] stage PARVIN disease. Margins were negative. He subsequently returned to rehab and has since been discharged home to [place]. He is seen today for adjuvant RT for his laryngeal cancer and definitive RT to a newly symptomatic BCC on the nasal tip. He has made a good functional recovery. He would benefit from BAG BAILER referral. I will place one. Discussed recommendation for adjuvant RT to the neck to minimize recurrence risk. 60 Gy in 30 fractions with VAMT and daily CBCT. Will also treat the nasal BCC simultaneously, 60 Gy in 30 fractions with 6MeV electrons and wax bolus. For simulation we will proceed next week, with treatment to start the following week. We reviewed the side effects of treatment, skin reaction, dysphagia, pain, fibrosis, and dysgeusia. He agreed to proceed. Performance Status ECOG 1 Plan Adjuvant RT 60 Gy in 30 fractions with VMAT and daily CBCT Definitive RT to nasal tip BCC 60 Gy in 30 fractions with electrons Simulation next week BAG BAILER referral Mr. Brizuela was encouraged to call with questions or concerns in the interim period. Billing Statement Total time of [50] minutes was spent preparing for the visit [4], obtaining HPI [5], examining the patient [8], reviewing diagnostic tests [7], discussing management options [9], coordinating care [8], and writing this note [9]. AMY BOSWELL MD Jan 19, 2021 09:31
== END ==
LOC: M ONCR 08:23
PROVIDERS: ATTEND General Practice
DX: C32.0 Malignant neoplasm of glottis (principal); C44.311 Basal cell carcinoma of skin of nose; Z87.891 Personal history of nicotine dependence; Z88.0 Allergy status to penicillin; Z79.899 Other long term (current) drug therapy

== ENCOUNTER 2021-02-02 08:30 | Outpatient (RCR) | payer MEDICAID | END 2021-02-16 | LOC: M ONCR 08:30 | PROVIDERS: ATTEND General Practice | DX: C44.311 Basal cell carcinoma of skin of nose (principal); C44.319 Basal cell carcinoma of skin of other parts of face; C32.8 Malignant neoplasm of overlapping sites of larynx ==

== ENCOUNTER 2021-03-13 09:16 | Outpatient (RCR) | payer MEDICAID | END 2021-03-19 | LOC: M ST 09:16 | PROVIDERS: ATTEND Student in an Organized Health Care Education/Training Program | DX: Z90.02 Acquired absence of larynx (principal); Z51.89 Encounter for other specified aftercare ==

== ENCOUNTER → 2021-03-19 | Outpatient (RCR) | payer MEDICAID | LOC: M ONCR 02-20 11:48 | PROVIDERS: ATTEND General Practice | DX: C44.311 Basal cell carcinoma of skin of nose (principal); C44.319 Basal cell carcinoma of skin of other parts of face; C32.8 Malignant neoplasm of overlapping sites of larynx ==

== ENCOUNTER → 2021-04-09 | Outpatient (CLI) | payer MEDICAID ==
[2021-04-09 14:44] LABS: BLOOD UREA NITROGEN 19 MG/DL (7-18); CALCIUM LEVEL 9.4 MG/DL (8.8-10.2); CARBON DIOXIDE LEVEL 27 MEQ/L (21-32); CHLORIDE LEVEL 108 MEQ/L (98-107); CREATININE FOR GFR 1.25 MG/DL (0.70-1.30); GLOMERULAR FILTRATION RATE > 60.0 (>49); GLUCOSE, FASTING 91 MG/DL (70-100); POTASSIUM SERUM 4.2 MEQ/L (3.5-5.1); PREALBUMIN 17.5 MG/DL (20.0-40.0); SODIUM LEVEL 140 MEQ/L (136-145)
== END ==
LOC: M LAB 13:23
PROVIDERS: ATTEND Dietitian, Registered Nutrition, Metabolic
DX: R63.6 Underweight (principal)

== ENCOUNTER 2021-04-12 09:37 | Outpatient (RCR) | payer MEDICAID | END 2021-04-16 | LOC: M ONCR 09:37 | PROVIDERS: ATTEND General Practice | DX: C44.311 Basal cell carcinoma of skin of nose (principal); C44.319 Basal cell carcinoma of skin of other parts of face; C32.8 Malignant neoplasm of overlapping sites of larynx ==

== ENCOUNTER 2021-04-12 10:00 | Outpatient (RCR) | payer MEDICAID | END 2021-04-16 | LOC: M ST 10:00 | PROVIDERS: ATTEND Student in an Organized Health Care Education/Training Program | DX: Z90.02 Acquired absence of larynx (principal) ==

== ENCOUNTER → 2021-05-01 | Outpatient (CLI) | payer MEDICAID ==
[2021-05-01 10:47] LABS: FREE T4 0.89 NG/DL (0.76-1.46); THYROID STIMULATING HORMONE 17.1 uIU/ML (0.358-3.740)
== END ==
LOC: M LAB 09:40
PROVIDERS: ATTEND Student in an Organized Health Care Education/Training Program
DX: R79.89 Other specified abnormal findings of blood chemistry (principal)

== ENCOUNTER 2021-05-14 08:54 | Outpatient (RCR) | payer MEDICAID | END 2021-05-17 | LOC: M ST 08:54 | PROVIDERS: ATTEND Student in an Organized Health Care Education/Training Program | DX: Z90.02 Acquired absence of larynx (principal) ==

== ENCOUNTER 2021-06-13 09:25 | Outpatient (RCR) | payer MEDICAID, OTHER | END 2021-06-16 | LOC: M ST 09:25 | PROVIDERS: ATTEND Student in an Organized Health Care Education/Training Program | DX: Z90.02 Acquired absence of larynx (principal) ==

== ENCOUNTER → 2021-07-10 | Outpatient (CLI) | payer MEDICAID, OTHER ==
[~2021-07-10] MED LIST changes: +LEVO75TA4 PO
[2021-07-10 13:12] LABS: FREE T4 1.05 NG/DL (0.76-1.46); THYROID STIMULATING HORMONE 14.6 uIU/ML (0.358-3.740)
== END ==
LOC: M ONCR 10:31
PROVIDERS: ATTEND General Practice
DX: C32.8 Malignant neoplasm of overlapping sites of larynx (principal); C44.319 Basal cell carcinoma of skin of other parts of face; Z87.891 Personal history of nicotine dependence; Z92.3 Personal history of irradiation; Z88.0 Allergy status to penicillin
CPT/HCPCS: 31575; 36415; 84439; 84443; G0463

== ENCOUNTER 2021-07-12 09:34 | Outpatient (RCR) | payer OTHER ==
[~2021-07-12 09:34] MED LIST changes: +ALBU2.5V10 NEB; -ALBU83IN NEB
== END 2021-07-17 ==
LOC: M ST 09:34
PROVIDERS: ATTEND Student in an Organized Health Care Education/Training Program
DX: Z90.02 Acquired absence of larynx (principal)

== ENCOUNTER → 2021-08-01 | Outpatient (CLI) | payer OTHER ==
[~2021-08-01] MED LIST changes: +ISOVUE-370 76% 100ML VIAL ONE
[2021-08-01 13:50] LABS: ALBUMIN 3.7 GM/DL (3.2-5.2); BILIRUBIN,TOTAL 0.6 MG/DL (0.2-1.0); CALCIUM LEVEL 9.5 MG/DL (8.8-10.2); CREATININE FOR GFR 1.4 MG/DL (0.70-1.30); GLOMERULAR FILTRATION RATE 54.5 (>49); POTASSIUM SERUM 4.6 MEQ/L (3.5-5.1); TOTAL PROTEIN 7.3 GM/DL (6.4-8.2)
== END ==
LOC: M PLAIMG 09:15
PROVIDERS: ATTEND General Practice
DX: C44.311 Basal cell carcinoma of skin of nose (principal); C44.319 Basal cell carcinoma of skin of other parts of face; C32.8 Malignant neoplasm of overlapping sites of larynx; J32.9 Chronic sinusitis, unspecified; H74.93 Unspecified disorder of middle ear and mastoid, bilateral
CPT/HCPCS: 36415; 70487; 70491; 80053; Q9967

== ENCOUNTER 2021-08-15 09:34 | Outpatient (RCR) | payer OTHER ==
[~2021-08-15 09:34] MED LIST changes: -ISOVUE-370 76% 100ML VIAL ONE
== END 2021-08-16 ==
LOC: M ST 09:34
PROVIDERS: ATTEND Student in an Organized Health Care Education/Training Program
DX: Z90.02 Acquired absence of larynx (principal)

== ENCOUNTER 2021-09-05 09:18 | Outpatient (RCR) | payer OTHER | END 2021-09-16 | LOC: M ST 09:18 | PROVIDERS: ATTEND Student in an Organized Health Care Education/Training Program | DX: Z90.02 Acquired absence of larynx (principal) ==

== ENCOUNTER → 2021-10-08 | Outpatient (CLI) | payer OTHER, MEDICAID ==
[2021-10-08 14:40] LABS: FREE T4 1.32 NG/DL (0.76-1.46); THYROID STIMULATING HORMONE 0.823 uIU/ML (0.358-3.740)
[2021-10-08 15:32] LABS: PREALBUMIN 25.3 MG/DL (20.0-40.0)
== END ==
LOC: M PLALAB 11:55
PROVIDERS: ATTEND Student in an Organized Health Care Education/Training Program
DX: R63.6 Underweight (principal); E02 Subclinical iodine-deficiency hypothyroidism

== ENCOUNTER → 2021-11-12 | Outpatient (CLI) | payer OTHER | LOC: M ONCR 09:36 | PROVIDERS: ATTEND General Practice | DX: Z08 Encounter for follow-up examination after completed treatment for malignant neoplasm (principal); Z85.21 Personal history of malignant neoplasm of larynx; Z85.828 Personal history of other malignant neoplasm of skin; Z79.51 Long term (current) use of inhaled steroids; Z79.890 Hormone replacement therapy; Z88.0 Allergy status to penicillin; Z90.02 Acquired absence of larynx; Z93.1 Gastrostomy status | CPT/HCPCS: 31575; G0463 ==

== ENCOUNTER → 2022-01-08 | Outpatient (POV) | payer OTHER ==
[~2022-01-08] VITALS: Ht 170.2 cm; Wt 56.8 kg
[2022-01-08 10:28] VITALS: BP 149/64
== END ==
LOC: M IRPOV 09:56
PROVIDERS: ATTEND Radiology Diagnostic Radiology
DX: Z43.1 Encounter for attention to gastrostomy (principal)

== ENCOUNTER → 2022-03-15 | Outpatient (CLI) | payer MEDICAID, OTHER ==
[~2022-03-15] MED LIST changes: +OMEP-173 PO
[2022-03-15 11:20] LABS: FREE T4 1.29 NG/DL (0.89-1.76); THYROID STIMULATING HORMONE 2.205 uIU/ML (0.55-4.78)
== END ==
LOC: M ONCR 09:35
PROVIDERS: ATTEND General Practice
DX: C32.8 Malignant neoplasm of overlapping sites of larynx (principal); C44.311 Basal cell carcinoma of skin of nose; C44.319 Basal cell carcinoma of skin of other parts of face; Z79.890 Hormone replacement therapy; Z79.899 Other long term (current) drug therapy; Z87.891 Personal history of nicotine dependence; Z88.0 Allergy status to penicillin; Z92.3 Personal history of irradiation
CPT/HCPCS: 31575; 84439; 84443; G0463

== ENCOUNTER → 2022-03-26 | Outpatient (CLI) | payer MEDICAID, OTHER ==
[2022-03-26 08:36] LABS: BASO # 0.1 10^3/uL (0.0-0.2); EOS # 0.1 10^3/uL (0.0-0.5); EOS % 1.4 % (0.0-3.0); HEMATOCRIT 44.5 % (42.0-52.0); LYMPH # 0.9 10^3/uL (1.5-5.0); LYMPH % 16.9 % (24.0-44.0); MEAN CORPUSCULAR HEMOGLOBIN 28.9 pg (27.0-33.0); MEAN CORPUSCULAR HGB CONC 31.5 g/dl (32.0-36.5); MEAN CORPUSCULAR VOLUME 91.9 fl (80.0-96.0); MONO # 0.5 10^3/uL (0.0-0.8); MONO % 10.4 % (2.0-8.0); NEUTROPHILS # 3.6 10^3/uL (1.5-8.5); NEUTROPHILS % 70.1 % (36.0-66.0); PLATELET COUNT, AUTOMATED 227 10^3/uL (150-450); RED BLOOD COUNT 4.84 10^6/uL (4.30-6.10); WHITE BLOOD COUNT 5.1 10^3/uL (4.0-10.0)
[2022-03-26 08:59] LABS: THYROID STIMULATING HORMONE 1.613 uIU/ML (0.55-4.78)
[2022-03-26 09:00] LABS: ALBUMIN 3.7 G/DL (3.2-5.2); ALKALINE PHOSPHATASE 67 U/L (46-116); ALT/SGPT 16 U/L (7.0-40); AST/SGOT 28 U/L (<34); BILIRUBIN,TOTAL 0.6 MG/DL (0.3-1.2); BLOOD UREA NITROGEN 15 MG/DL (9-23); CALCIUM LEVEL 9.7 MG/DL (8.3-10.6); CARBON DIOXIDE LEVEL 30 MMOL/L (20-31); CHLORIDE LEVEL 107 MMOL/L (98-107); CHOLESTEROL LEVEL 158 MG/DL (<200); CHOLESTEROL RISK RATIO 3.46 (<5); CREATININE FOR GFR 1.15 MG/DL (0.70-1.30); GLOMERULAR FILTRATION RATE > 60.0 (>49); GLUCOSE, FASTING 84 MG/DL (74-106); HDL CHOLESTEROL 45.6 MG/DL (>40); LDL CHOLESTEROL 91.2 MG/DL (<100); NON-HDL-C 112 MG/DL; SODIUM LEVEL 143 MMOL/L (136-145); TOTAL PROTEIN 6.7 G/DL (5.7-8.2); TRIGLYCERIDES LEVEL 106 MG/DL (<150)
[2022-03-26 09:01] LABS: FREE T4 1.36 NG/DL (0.89-1.76)
== END ==
LOC: M LAB 07:59
PROVIDERS: ATTEND Student in an Organized Health Care Education/Training Program
DX: Z00.00 Encounter for general adult medical examination without abnormal findings (principal); E03.8 Other specified hypothyroidism

== ENCOUNTER 2022-05-15 09:41 | Outpatient (RCR) | payer OTHER | END 2022-05-17 | LOC: M ST 09:41 | PROVIDERS: ATTEND Student in an Organized Health Care Education/Training Program | DX: Z90.02 Acquired absence of larynx (principal) ==

== ENCOUNTER 2022-06-18 09:49 | Outpatient (RCR) | payer OTHER | END 2022-07-17 | LOC: M ST 09:49 | PROVIDERS: ATTEND Student in an Organized Health Care Education/Training Program | DX: Z90.02 Acquired absence of larynx (principal) ==

== ENCOUNTER 2022-08-05 09:59 | Outpatient (RCR) | payer OTHER | END 2022-08-16 | LOC: M ST 09:59 | PROVIDERS: ATTEND Student in an Organized Health Care Education/Training Program | DX: Z90.02 Acquired absence of larynx (principal) ==

== ENCOUNTER → 2022-09-11 | Outpatient (CLI) | payer OTHER ==
[~2022-09-11] MED LIST changes: +CETACAINE SPRAY 5GM MT ONE
== END ==
LOC: M ONCR 10:24
PROVIDERS: ATTEND General Practice
DX: C32.8 Malignant neoplasm of overlapping sites of larynx (principal); C44.311 Basal cell carcinoma of skin of nose; C44.319 Basal cell carcinoma of skin of other parts of face; Z71.2 Person consulting for explanation of examination or test findings; Z79.890 Hormone replacement therapy; Z87.891 Personal history of nicotine dependence; Z79.899 Other long term (current) drug therapy; Z88.0 Allergy status to penicillin; Z88.1 Allergy status to other antibiotic agents; Z90.02 Acquired absence of larynx; Z92.3 Personal history of irradiation; Z93.0 Tracheostomy status
CPT/HCPCS: 31575; G0463

== ENCOUNTER → 2022-09-20 | Outpatient (CLI) | payer OTHER ==
[~2022-09-20] MED LIST changes: -CETACAINE SPRAY 5GM MT ONE
== END ==
LOC: M RAD 13:44
PROVIDERS: ATTEND General Practice
DX: C32.8 Malignant neoplasm of overlapping sites of larynx (principal); Z93.0 Tracheostomy status; R91.8 Other nonspecific abnormal finding of lung field

== ENCOUNTER → 2023-01-14 | Outpatient (CLI) | payer OTHER | LOC: M ONCR 12:14 | PROVIDERS: ATTEND General Practice | DX: Z08 Encounter for follow-up examination after completed treatment for malignant neoplasm (principal); Z85.828 Personal history of other malignant neoplasm of skin; Z85.21 Personal history of malignant neoplasm of larynx; Z71.2 Person consulting for explanation of examination or test findings; Z79.890 Hormone replacement therapy; Z79.899 Other long term (current) drug therapy; Z87.891 Personal history of nicotine dependence; Z88.0 Allergy status to penicillin; Z88.1 Allergy status to other antibiotic agents; Z90.02 Acquired absence of larynx; Z92.3 Personal history of irradiation; Z96.3 Presence of artificial larynx | CPT/HCPCS: 31575; G0463 ==

== ENCOUNTER 2023-03-13 12:30 | Outpatient (RCR) | payer OTHER | END 2023-03-19 | LOC: M ST 12:30 | PROVIDERS: ATTEND Otolaryngology | DX: C32.9 Malignant neoplasm of larynx, unspecified (principal); Z90.02 Acquired absence of larynx ==

== ENCOUNTER 2023-04-10 12:11 | Outpatient (RCR) | payer MEDICARE, OTHER | END 2023-04-17 | LOC: M ST 12:11 | PROVIDERS: ATTEND Otolaryngology | DX: Z90.02 Acquired absence of larynx (principal); C32.9 Malignant neoplasm of larynx, unspecified; Z96.3 Presence of artificial larynx ==

== ENCOUNTER 2023-06-13 10:46 | Outpatient (RCR) | payer MEDICARE | END 2023-06-17 | LOC: M ST 10:46 | PROVIDERS: ATTEND Otolaryngology | DX: Z96.3 Presence of artificial larynx (principal) ==

== ENCOUNTER → 2023-07-17 | Outpatient (CLI) | payer MEDICARE, OTHER ==
[~2023-07-17] MED LIST changes: +DOXY-323; +DOXY-323 PO; -DOXY-443; -DOXY-443 PO
== END ==
LOC: M ONCR 12:32
PROVIDERS: ATTEND General Practice
DX: Z08 Encounter for follow-up examination after completed treatment for malignant neoplasm (principal); M26.622 Arthralgia of left temporomandibular joint; Z85.828 Personal history of other malignant neoplasm of skin; Z85.21 Personal history of malignant neoplasm of larynx; Z79.899 Other long term (current) drug therapy; Z71.2 Person consulting for explanation of examination or test findings; Z79.890 Hormone replacement therapy; Z87.891 Personal history of nicotine dependence; Z88.0 Allergy status to penicillin; Z88.1 Allergy status to other antibiotic agents; Z92.3 Personal history of irradiation
CPT/HCPCS: 31575; G0463

== ENCOUNTER 2023-09-02 09:03 | Outpatient (RCR) | payer MEDICARE, MEDICAID | END 2023-09-17 | LOC: M ST 09:03 | PROVIDERS: ATTEND Otolaryngology | DX: Z96.3 Presence of artificial larynx (principal) ==

== ENCOUNTER → 2023-09-17 | Outpatient (CLI) | payer MEDICARE, MEDICAID ==
[2023-09-17 15:06] LABS: BASO # 0.1 10^3/uL (0.0-0.2); BASO % 0.9 % (0.0-1.0); EOS % 0.5 % (0.0-3.0); HEMATOCRIT 43.6 % (42.0-52.0); HEMOGLOBIN 13.9 g/dl (13.5-17.5); LYMPH # 0.9 10^3/uL (1.5-5.0); LYMPH % 14.9 % (24.0-44.0); MEAN CORPUSCULAR HEMOGLOBIN 28.8 pg (27.0-33.0); MEAN CORPUSCULAR HGB CONC 31.9 g/dl (32.0-36.5); MEAN CORPUSCULAR VOLUME 90.5 fl (80.0-96.0); MONO # 0.6 10^3/uL (0.0-0.8); MONO % 9.9 % (2.0-8.0); NEUTROPHILS # 4.2 10^3/uL (1.5-8.5); NEUTROPHILS % 73.5 % (36.0-66.0); PLATELET COUNT, AUTOMATED 266 10^3/uL (150-450); RED BLOOD COUNT 4.82 10^6/uL (4.30-6.10); WHITE BLOOD COUNT 5.8 10^3/uL (4.0-10.0)
[2023-09-17 15:09] LABS: ALBUMIN 3.6 G/DL (3.2-5.2); ALKALINE PHOSPHATASE 82 U/L (46-116); ALT/SGPT 34 U/L (7.0-40); AST/SGOT 41 U/L (<34); BILIRUBIN,TOTAL 0.6 MG/DL (0.3-1.2); BLOOD UREA NITROGEN 19 MG/DL (9-23); CALCIUM LEVEL 9.4 MG/DL (8.3-10.6); CARBON DIOXIDE LEVEL 28 MMOL/L (20-31); CHLORIDE LEVEL 104 MMOL/L (98-107); CREATININE FOR GFR 1.14 MG/DL (0.70-1.30); GLOMERULAR FILTRATION RATE > 60.0 (>49); GLUCOSE, FASTING 80 MG/DL (74-106); SODIUM LEVEL 140 MMOL/L (136-145); TOTAL PROTEIN 6.8 G/DL (5.7-8.2)
[2023-09-17 15:10] LABS: THYROID STIMULATING HORMONE 2.745 uIU/ML (0.55-4.78)
== END ==
LOC: M PLALAB 13:44
PROVIDERS: ATTEND Family Medicine
DX: E03.9 Hypothyroidism, unspecified (principal); R63.6 Underweight

== ENCOUNTER 2023-12-07 10:51 | Inpatient (IN) | payer MEDICARE, MEDICAID ==
[~2023-12-07] VITALS: Ht 170.2 cm; Wt 55.5 kg
[~2023-12-07 10:51] MED LIST changes: -DOXY-323; -DOXY-323 PO; +DOXY-441; +DOXY-441 PO
[2023-12-07 12:08] LABS: BASO % 0.2 % (0.0-1.0); HEMATOCRIT 42.5 % (42.0-52.0); HEMOGLOBIN 13.7 g/dl (13.5-17.5); LYMPH # 0.6 10^3/uL (1.5-5.0); MEAN CORPUSCULAR HEMOGLOBIN 30.1 pg (27.0-33.0); MEAN CORPUSCULAR HGB CONC 32.2 g/dl (32.0-36.5); MEAN CORPUSCULAR VOLUME 93.4 fl (80.0-96.0); MONO # 1.2 10^3/uL (0.0-0.8); MONO % 5.9 % (2.0-8.0); NEUTROPHILS # 18.9 10^3/uL (1.5-8.5); NEUTROPHILS % 89.5 % (36.0-66.0); PLATELET COUNT, AUTOMATED 311 10^3/uL (150-450); RED BLOOD COUNT 4.55 10^6/uL (4.30-6.10); WHITE BLOOD COUNT 21.1 10^3/uL (4.0-10.0)
[2023-12-07 12:23] LABS: INR 1.3; PROTHROMBIN TIME 15.8 SECONDS (12.5-14.5)
[2023-12-07] MEDS: NS 1,000 ML IV ONE ×2 (12:25→17:30)
[2023-12-07 12:45] LABS: ALBUMIN 3.8 G/DL (3.2-5.2); BILIRUBIN,DIRECT 0.1 MG/DL (<0.4); BILIRUBIN,TOTAL 0.3 MG/DL (0.3-1.2); CALCIUM LEVEL 10.4 MG/DL (8.3-10.6); CK-MB VALUE MASS 15.9 NG/ML (<3.6); CREATININE FOR GFR 1.3 MG/DL (0.70-1.30); POTASSIUM SERUM 4.8 MMOL/L (3.5-5.1); THYROID STIMULATING HORMONE 2.842 uIU/ML (0.55-4.78); TOTAL PROTEIN 7.9 G/DL (5.7-8.2)
[2023-12-07 12:47] LABS: FREE T4 1.33 NG/DL (0.89-1.76)
[2023-12-07 12:48] LABS: MB/CK RELATIVE INDEX 1.36 (< OR =4)
[2023-12-07] MEDS: ACETAMINOPHEN 325 MG TAB PO ONE (13:15)
[2023-12-07 13:30] LABS: ABG BASE EXCESS -0.6 (-2.0-2.0); ABG HCO3 21.8 MMOL/L (22.0-26.0); ABG O2 SATURATION 95.5 % (95.0-99.0); ABG PARTIAL PRESSURE CO2 29.9 mmHg (35.0-45.0); ABG STANDARD HCO3 23.9 MMOL/L. (22.0-26.0); ABG TOTAL CO2 22.7 MMOL/L (23.0-31.0)
[2023-12-07] MEDS ORDERED: ISOVUE-370 76% 100ML VIAL As Ordered ONE (14:40)
[2023-12-07 14:53] LABS: PROCALCITONIN 4.44 ng/ml
[2023-12-07 14:54] LABS: CK-MB VALUE MASS 27.2 NG/ML (<3.6)
[2023-12-07 15:09] LABS: MB/CK RELATIVE INDEX 1.36 (< OR =4)
[2023-12-07] MEDS: cefTRIAXone SOD 2 GM in DEXTROSE 5% (D5W) ADV/MINI-BAG 50 ML IV ONE (15:49)
[2023-12-07] MEDS: NS 500 ML IV ONE (15:50)
[2023-12-07 17:30] VITALS: BP 121/56; TEMP 99.3; O2SAT 100
[2023-12-07 17:42] LABS: HEMOGLOBIN A1c 4.9 % (4.0-6.0)
[2023-12-07 18:28] LABS: MAGNESIUM LEVEL 2.4 MG/DL (1.8-2.4)
[2023-12-07 18:36] LABS: ACETONE/KETONE 1.02 MMOL/L (0.02-0.27)
[2023-12-07] MEDS: NS 1,000 ML IV SCH (18:49)
[2023-12-07 19:35] VITALS: BP 108/51; TEMP 98.6; O2SAT 99
[2023-12-07] MEDS ORDERED: ALB2.5NEB INH (19:49)
[2023-12-07] MEDS ORDERED: HOME MED LIST COMPLETE! XX SCH (19:50)
[2023-12-07] MEDS: LR 1,000 ML IV SCH (20:05)
[2023-12-07 23:29] VITALS: BP 104/51; TEMP 98.7; O2SAT 96
[2023-12-08] VITALS (8 sets, daily range): BP systolic 101–126; BP diastolic 50–59; TEMP 98.2–99.3; O2SAT 97–100
[2023-12-08 06:56] LABS: BASO # 0.1 10^3/uL (0.0-0.2); BASO % 0.4 % (0.0-1.0); EOS % 0.1 % (0.0-3.0); HEMATOCRIT 34.9 % (42.0-52.0); LYMPH # 0.8 10^3/uL (1.5-5.0); LYMPH % 6.3 % (24.0-44.0); MEAN CORPUSCULAR HEMOGLOBIN 30.1 pg (27.0-33.0); MEAN CORPUSCULAR HGB CONC 33.2 g/dl (32.0-36.5); MEAN CORPUSCULAR VOLUME 90.4 fl (80.0-96.0); MONO # 0.8 10^3/uL (0.0-0.8); MONO % 6.3 % (2.0-8.0); NEUTROPHILS # 11.1 10^3/uL (1.5-8.5); NEUTROPHILS % 86.5 % (36.0-66.0); PLATELET COUNT, AUTOMATED 256 10^3/uL (150-450); RED BLOOD COUNT 3.86 10^6/uL (4.30-6.10); WHITE BLOOD COUNT 12.8 10^3/uL (4.0-10.0)
[2023-12-08 06:57] LABS: HEMOGLOBIN 11.6 g/dl (13.5-17.5)
[2023-12-08 07:11] LABS: BLOOD UREA NITROGEN 30 MG/DL (9-23); CALCIUM LEVEL 9.3 MG/DL (8.3-10.6); CARBON DIOXIDE LEVEL 24 MMOL/L (20-31); CHLORIDE LEVEL 111 MMOL/L (98-107); CPK CREATINE PHOSPHOKINASE 4369 U/L (46-171); CREATININE FOR GFR 1.03 MG/DL (0.70-1.30); GLOMERULAR FILTRATION RATE > 60.0 (>49); GLUCOSE, FASTING 93 MG/DL (74-106); POTASSIUM SERUM 3.9 MMOL/L (3.5-5.1); SODIUM LEVEL 142 MMOL/L (136-145)
[2023-12-08] MEDS: ALBUTEROL SULFATE 2.5MG/0.5ML INH NEB SOLN INH SCH (08:00)
[2023-12-08] MEDS ORDERED: NS 1,000 ML IV ONE (08:45)
[2023-12-08 09:37] LABS: INR 1.26; PARTIAL THROMBOPLASTIN TIME 32.8 SECONDS (24.8-34.2); PROTHROMBIN TIME 15.4 SECONDS (12.5-14.5)
[2023-12-08] MEDS: NS 1,000 ML IV SCH ×2 (11:00→17:47)
[2023-12-08] MEDS ORDERED: LIDOCAINE 1% MDV 20ML VIAL As Ordered ONE (11:35)
[2023-12-08] MEDS: LEVOTHYROXINE 75MCG TABLET (0.075MG) PO SCH (14:44)
[2023-12-08] MEDS: OMEPRAZOLE 20MG CAP PO SCH (14:44)
[2023-12-08] MEDS: cefTRIAXone SOD 2 GM in DEXTROSE 5% (D5W) ADV/MINI-BAG 50 ML IV SCH (16:55)
[2023-12-09 03:27] VITALS: BP 121/58; TEMP 97.9; O2SAT 98
[2023-12-09 07:16] LABS: BASO % 0.4 % (0.0-1.0); EOS % 0.3 % (0.0-3.0); HEMATOCRIT 35.6 % (42.0-52.0); HEMOGLOBIN 11.6 g/dl (13.5-17.5); LYMPH # 0.6 10^3/uL (1.5-5.0); LYMPH % 7.8 % (24.0-44.0); MEAN CORPUSCULAR HEMOGLOBIN 29.7 pg (27.0-33.0); MEAN CORPUSCULAR HGB CONC 32.6 g/dl (32.0-36.5); MEAN CORPUSCULAR VOLUME 91.3 fl (80.0-96.0); MONO # 0.6 10^3/uL (0.0-0.8); MONO % 7.3 % (2.0-8.0); NEUTROPHILS # 6.5 10^3/uL (1.5-8.5); NEUTROPHILS % 83.9 % (36.0-66.0); PLATELET COUNT, AUTOMATED 213 10^3/uL (150-450); WHITE BLOOD COUNT 7.8 10^3/uL (4.0-10.0)
[2023-12-09 07:40] LABS: BLOOD UREA NITROGEN 19 MG/DL (9-23); CALCIUM LEVEL 8.5 MG/DL (8.3-10.6); CARBON DIOXIDE LEVEL 25 MMOL/L (20-31); CHLORIDE LEVEL 110 MMOL/L (98-107); CREATININE FOR GFR 0.82 MG/DL (0.70-1.30); GLOMERULAR FILTRATION RATE > 60.0 (>49); GLUCOSE, FASTING 83 MG/DL (74-106); POTASSIUM SERUM 3.8 MMOL/L (3.5-5.1); SODIUM LEVEL 140 MMOL/L (136-145)
[2023-12-09 07:53] LABS: CPK CREATINE PHOSPHOKINASE 1944 U/L (46-171)
[2023-12-09 08:02] VITALS: BP 119/55; TEMP 98.1; O2SAT 99
[2023-12-09 15:12] LABS: ANA SCREEN, IFA NEGATIVE (NEGATIVE)
[2023-12-09 19:46] VITALS: BP 128/60; TEMP 98.1; O2SAT 99
[2023-12-09 22:00] VITALS: BP 126/73; TEMP 97.3; O2SAT 96
[2023-12-10 04:00] VITALS: BP 121/73; TEMP 97.9; O2SAT 95
[2023-12-10 06:22] LABS: BASO # 0.1 10^3/uL (0.0-0.2); BASO % 0.6 % (0.0-1.0); EOS # 0.1 10^3/uL (0.0-0.5); EOS % 0.7 % (0.0-3.0); HEMATOCRIT 37.9 % (42.0-52.0); HEMOGLOBIN 12.6 g/dl (13.5-17.5); LYMPH # 0.7 10^3/uL (1.5-5.0); LYMPH % 7.6 % (24.0-44.0); MEAN CORPUSCULAR HEMOGLOBIN 29.2 pg (27.0-33.0); MEAN CORPUSCULAR HGB CONC 33.2 g/dl (32.0-36.5); MEAN CORPUSCULAR VOLUME 87.9 fl (80.0-96.0); MONO # 0.6 10^3/uL (0.0-0.8); MONO % 6.5 % (2.0-8.0); NEUTROPHILS # 7.3 10^3/uL (1.5-8.5); NEUTROPHILS % 84.4 % (36.0-66.0); PLATELET COUNT, AUTOMATED 230 10^3/uL (150-450); RED BLOOD COUNT 4.31 10^6/uL (4.30-6.10); WHITE BLOOD COUNT 8.6 10^3/uL (4.0-10.0)
[2023-12-10 06:40] LABS: BLOOD UREA NITROGEN 16 MG/DL (9-23); CALCIUM LEVEL 8.7 MG/DL (8.3-10.6); CARBON DIOXIDE LEVEL 25 MMOL/L (20-31); CHLORIDE LEVEL 109 MMOL/L (98-107); CPK CREATINE PHOSPHOKINASE 1187 U/L (46-171); GLOMERULAR FILTRATION RATE > 60.0 (>49); GLUCOSE, FASTING 84 MG/DL (74-106); MAGNESIUM LEVEL 1.5 MG/DL (1.8-2.4); PHOSPHORUS LEVEL 2.6 MG/DL (2.4-5.1); POTASSIUM SERUM 3.6 MMOL/L (3.5-5.1); SODIUM LEVEL 139 MMOL/L (136-145)
[2023-12-10] MEDS: NS 500 ML IV ONE (09:00)
[2023-12-10] MEDS: MAG SULF 1GM/100ML (MAG RUN) 1 GM in IV 1 EA IV SCH (09:45)
[2023-12-10] MEDS: POTASSIUM CHLORIDE 10MEQ SR TABLET PO ONE (09:46)
[2023-12-10] MEDS ORDERED: DOXY-440 PO (11:59)
[2023-12-10] MEDS ORDERED: CEFD1CAP9 PO (11:59)
[2023-12-10 12:00] VITALS: BP 111/62; TEMP 97.9; O2SAT 97
== END 2023-12-10 15:27 | disposition home or self-care (01) | DRG 641 ==
LOC: M ED 10:51 → EDBD 10:51 → M ED INP 16:34 → M PCU 17:21 → M MSPAV 12-09 22:00
PROVIDERS: ADMIT General Practice; ATTEND Hospitalist
PROC: 0BBG3ZX Excision of Left Upper Lung Lobe, Percutaneous Approach, Diagnostic (ICD-10-PCS; principal; 2023-12-08 15:00)
DX: E46 Unspecified protein-calorie malnutrition (principal); M62.82 Rhabdomyolysis; E87.29 Other acidosis; C34.12 Malignant neoplasm of upper lobe, left bronchus or lung; K59.00 Constipation, unspecified; J44.9 Chronic obstructive pulmonary disease, unspecified; R07.89 Other chest pain; Z90.02 Acquired absence of larynx; Z85.818 Personal history of malignant neoplasm of other sites of lip, oral cavity, and pharynx; Z87.891 Personal history of nicotine dependence; Z79.890 Hormone replacement therapy; Z79.899 Other long term (current) drug therapy; Z88.0 Allergy status to penicillin

== ENCOUNTER → 2023-12-19 | Outpatient (REF) | payer MEDICARE, MEDICAID ==
[~2023-12-19] MED LIST changes: +ALB2.5NEB INH; +CEFD1CAP9 PO; +DOXY-440 PO
[2023-12-19 18:08] LABS: ALBUMIN 3.7 G/DL (3.2-5.2); ALKALINE PHOSPHATASE 73 U/L (40-129); ALT/SGPT 29 U/L (7.0-40); AST/SGOT 27 U/L (<34); BASO # 0.1 10^3/uL (0.0-0.2); BASO % 0.6 % (0.0-1.0); BILIRUBIN,TOTAL 0.5 MG/DL (0.3-1.2); BLOOD UREA NITROGEN 21 MG/DL (9-23); CALCIUM LEVEL 10.4 MG/DL (8.3-10.6); CARBON DIOXIDE LEVEL 28 MMOL/L (20-31); CHLORIDE LEVEL 103 MMOL/L (98-107); CPK CREATINE PHOSPHOKINASE 132 U/L (46-171); CREATININE FOR GFR 1.07 MG/DL (0.70-1.30); EOS # 0.1 10^3/uL (0.0-0.5); EOS % 0.8 % (0.0-3.0); GLOMERULAR FILTRATION RATE > 60.0 (>49); GLUCOSE, FASTING 85 MG/DL (74-106); HEMATOCRIT 41.9 % (42.0-52.0); HEMOGLOBIN 13.3 g/dl (13.5-17.5); LYMPH # 0.9 10^3/uL (1.5-5.0); LYMPH % 11.9 % (24.0-44.0); MEAN CORPUSCULAR HEMOGLOBIN 29.8 pg (27.0-33.0); MEAN CORPUSCULAR HGB CONC 31.7 g/dl (32.0-36.5); MEAN CORPUSCULAR VOLUME 93.7 fl (80.0-96.0); MONO # 0.6 10^3/uL (0.0-0.8); MONO % 7.1 % (2.0-8.0); NEUTROPHILS # 6.2 10^3/uL (1.5-8.5); NEUTROPHILS % 79.2 % (36.0-66.0); PLATELET COUNT, AUTOMATED 391 10^3/uL (150-450); RED BLOOD COUNT 4.47 10^6/uL (4.30-6.10); SODIUM LEVEL 139 MMOL/L (136-145); TOTAL PROTEIN 7.3 G/DL (5.7-8.2); WHITE BLOOD COUNT 7.8 10^3/uL (4.0-10.0)
== END ==
LOC: M SFHCLERA 09:17
PROVIDERS: ATTEND Physician Assistant
DX: M62.82 Rhabdomyolysis (principal)

== ENCOUNTER → 2023-12-22 | Outpatient (CLI) | payer MEDICARE, MEDICAID | LOC: M PLARAD 12:32 | PROVIDERS: ATTEND General Practice | DX: C34.12 Malignant neoplasm of upper lobe, left bronchus or lung (principal) | CPT/HCPCS: 78815; A9552 ==

== ENCOUNTER → 2023-12-24 | Outpatient (CLI) | payer MEDICARE, MEDICAID | LOC: M ONCR 08:37 | PROVIDERS: ATTEND General Practice | DX: C78.02 Secondary malignant neoplasm of left lung (principal); R91.8 Other nonspecific abnormal finding of lung field; Z85.21 Personal history of malignant neoplasm of larynx; Z85.828 Personal history of other malignant neoplasm of skin; Z79.890 Hormone replacement therapy; Z79.899 Other long term (current) drug therapy; Z87.891 Personal history of nicotine dependence; Z90.02 Acquired absence of larynx; Z92.3 Personal history of irradiation; Z88.0 Allergy status to penicillin; Z88.1 Allergy status to other antibiotic agents ==

== ENCOUNTER 2024-01-07 11:10 | Outpatient (RCR) | payer MEDICARE, MEDICAID ==
[~2024-01-07 11:10] MED LIST changes: -LIDOCAINE 1% MDV 20ML VIAL As Ordered ONE; -LIDOCAINE W/EPINEPHRINE 1% 20ML VIAL As Ordered ONE; -MIDAZOLAM INJ 2MG/2ML VIAL As Ordered ONE; -VANCOMYCIN/WATER FOR INJ 1,000 MG in IV 1 EA IV ONE; -fentaNYL 100 MCG/2 ML INJECTION As Ordered ONE
== END 2024-01-17 ==
LOC: M ST 11:10
PROVIDERS: ATTEND General Practice
DX: Z96.3 Presence of artificial larynx (principal)

== ENCOUNTER → 2024-01-07 | Outpatient (CLI) | payer MEDICARE, MEDICAID ==
[~2024-01-07] VITALS: Ht 170.2 cm; Wt 52.3 kg
[~2024-01-07] MED LIST changes: +LIDOCAINE 1% MDV 20ML VIAL As Ordered ONE; +LIDOCAINE W/EPINEPHRINE 1% 20ML VIAL As Ordered ONE; +MIDAZOLAM INJ 2MG/2ML VIAL As Ordered ONE; +VANCOMYCIN/WATER FOR INJ 1,000 MG in IV 1 EA IV ONE; +fentaNYL 100 MCG/2 ML INJECTION As Ordered ONE
[2024-01-07 14:45] VITALS: TEMP 97.2
[2024-01-07 16:35] VITALS: BP 136/52; O2SAT 100
== END ==
LOC: M IRPRO 13:58
PROVIDERS: ATTEND Specialist
DX: C78.02 Secondary malignant neoplasm of left lung (principal)
CPT/HCPCS: 36561; 99152; 99153; J1642; J2250; J3010

== ENCOUNTER 2024-01-09 09:51 | Outpatient (RCR) | payer MEDICARE, MEDICAID | END 2024-01-17 | LOC: M ONCR 09:51 | PROVIDERS: ATTEND General Practice | DX: Z51.0 Encounter for antineoplastic radiation therapy (principal); C34.12 Malignant neoplasm of upper lobe, left bronchus or lung ==

== ENCOUNTER 2024-02-03 13:49 | Outpatient (RCR) | payer MEDICARE, MEDICAID ==
[~2024-02-03 13:49] MED LIST changes: +LIDO100S29 PO
[2024-02-16] MEDS ORDERED: LEVO25TA5 PO (09:27)
[2024-02-24] MEDS ORDERED: NUTRLIQ PO (14:29)
== END 2024-02-17 ==
LOC: M ONCR 13:49
PROVIDERS: ATTEND General Practice
DX: Z51.0 Encounter for antineoplastic radiation therapy (principal); C34.12 Malignant neoplasm of upper lobe, left bronchus or lung

== ENCOUNTER 2024-04-09 13:31 | Outpatient (RCR) | payer MEDICARE, MEDICAID ==
[~2024-04-09 13:31] MED LIST changes: +LEVO25TA5 PO; +NUTRLIQ PO
== END 2024-04-16 ==
LOC: M ST 13:31
PROVIDERS: ATTEND General Practice
DX: Z96.3 Presence of artificial larynx (principal)

== ENCOUNTER → 2024-05-04 | Outpatient (CLI) | payer MEDICARE, MEDICAID ==
[~2024-05-04] MED LIST changes: +LEVO50TA5 PO
== END ==
LOC: M ONCR 09:35
PROVIDERS: ATTEND General Practice
DX: C78.02 Secondary malignant neoplasm of left lung (principal); C32.8 Malignant neoplasm of overlapping sites of larynx; C44.311 Basal cell carcinoma of skin of nose; C44.319 Basal cell carcinoma of skin of other parts of face; Z92.3 Personal history of irradiation; Z79.620 Long term (current) use of immunosuppressive biologic; Z87.891 Personal history of nicotine dependence; Z88.0 Allergy status to penicillin; Z88.1 Allergy status to other antibiotic agents; Z79.890 Hormone replacement therapy; Z79.899 Other long term (current) drug therapy; Z22.1 Carrier of other intestinal infectious diseases; Z92.25 Personal history of immunosuppression therapy; Z90.02 Acquired absence of larynx; Z93.0 Tracheostomy status; Z93.1 Gastrostomy status; Z98.890 Other specified postprocedural states

== ENCOUNTER → 2024-05-06 | Outpatient (CLI) | payer MEDICARE, MEDICAID ==
[~2024-05-06] MED LIST changes: +ISOVUE-370 76% 100ML VIAL As Ordered ONE
== END ==
LOC: M RAD 09:06
PROVIDERS: ATTEND General Practice
DX: C32.8 Malignant neoplasm of overlapping sites of larynx (principal)
CPT/HCPCS: 71260; 74177; Q9967

== ENCOUNTER → 2024-08-17 | Outpatient (CLI) | payer MEDICARE, MEDICAID ==
[~2024-08-17] MED LIST changes: +ISOVUE-370 76% 100 ML VIAL ONE; -ISOVUE-370 76% 100ML VIAL As Ordered ONE; +LEVO100C2 PO; +LEVO112T2 PO; +LEVO88TA3 PO
== END ==
LOC: M PLAIMG 07:40
PROVIDERS: ATTEND Internal Medicine Medical Oncology
DX: C76.0 Malignant neoplasm of head, face and neck (principal); R91.8 Other nonspecific abnormal finding of lung field; J98.4 Other disorders of lung
CPT/HCPCS: 71260; Q9967

== ENCOUNTER → 2024-09-15 | Outpatient (CLI) | payer MEDICARE, MEDICAID ==
[~2024-09-15] MED LIST changes: +HOME MED LIST COMPLETE! XX SCH; -ISOVUE-370 76% 100 ML VIAL ONE; +LIDOCAINE 1% MDV 20 ML VIAL SC SCH
[2024-09-15 09:55] VITALS: TEMP 97.8
[2024-09-15 12:16] VITALS: BP 142/63; O2SAT 100
== END ==
LOC: M IRPRO 09:40
DX: C76.0 Malignant neoplasm of head, face and neck (principal); C34.12 Malignant neoplasm of upper lobe, left bronchus or lung

== ENCOUNTER → 2024-10-27 | Outpatient (CLI) | payer MEDICARE, MEDICAID ==
[~2024-10-27] MED LIST changes: -HOME MED LIST COMPLETE! XX SCH; -LIDOCAINE 1% MDV 20 ML VIAL SC SCH
== END ==
LOC: M RAD 11:52
PROVIDERS: ATTEND General Practice
DX: C34.12 Malignant neoplasm of upper lobe, left bronchus or lung (principal); R59.0 Localized enlarged lymph nodes; J43.2 Centrilobular emphysema

== ENCOUNTER → 2024-11-03 | Outpatient (CLI) | payer MEDICARE, MEDICAID ==
[~2024-11-03] MED LIST changes: +POTA-141 PO
== END ==
LOC: M ONCR 10:48
PROVIDERS: ATTEND General Practice
DX: C34.12 Malignant neoplasm of upper lobe, left bronchus or lung (principal); C76.0 Malignant neoplasm of head, face and neck; Z85.828 Personal history of other malignant neoplasm of skin; Z85.01 Personal history of malignant neoplasm of esophagus; Z92.3 Personal history of irradiation; Z87.891 Personal history of nicotine dependence; Z88.0 Allergy status to penicillin; Z88.1 Allergy status to other antibiotic agents; Z79.899 Other long term (current) drug therapy; Z90.02 Acquired absence of larynx; Z90.89 Acquired absence of other organs; Z79.620 Long term (current) use of immunosuppressive biologic

== ENCOUNTER 2024-11-12 10:26 | Outpatient (RCR) | payer MEDICARE, MEDICAID | END 2024-11-16 | LOC: M ONCR 10:26 | PROVIDERS: ATTEND General Practice | DX: Z51.0 Encounter for antineoplastic radiation therapy (principal); C34.12 Malignant neoplasm of upper lobe, left bronchus or lung ==

== ENCOUNTER 2024-11-26 09:45 | Outpatient (RCR) | payer MEDICARE, MEDICAID ==
[2024-11-30] MEDS ORDERED: LIDO30CR18 TOP (11:45)
[2024-11-30] MEDS ORDERED: HYDR25OIN TOP (11:45)
== END 2024-12-17 ==
LOC: M ONCR 09:45
PROVIDERS: ATTEND General Practice
DX: Z51.0 Encounter for antineoplastic radiation therapy (principal); C34.12 Malignant neoplasm of upper lobe, left bronchus or lung

== ENCOUNTER 2025-01-11 11:35 | Outpatient (RCR) | payer MEDICARE, MEDICAID ==
[~2025-01-11 11:35] MED LIST changes: +HYDR25OIN TOP; +LIDO30CR18 TOP
== END 2025-01-16 ==
LOC: M ST 11:35
PROVIDERS: ATTEND General Practice
DX: Z96.3 Presence of artificial larynx (principal)

== ENCOUNTER → 2025-01-21 | Outpatient (CLI) | payer MEDICARE, MEDICAID ==
[~2025-01-21] MED LIST changes: +DEXA4TA PO; +ISOVUE-370 76% 100 ML VIAL ONE
== END ==
LOC: M PLAIMG 11:13
DX: C76.0 Malignant neoplasm of head, face and neck (principal); R91.8 Other nonspecific abnormal finding of lung field; K76.89 Other specified diseases of liver; I70.0 Atherosclerosis of aorta
CPT/HCPCS: 71260; 74177; Q9967

== ENCOUNTER → 2025-01-31 | Outpatient (CLI) | payer MEDICARE, MEDICAID ==
[~2025-01-31] MED LIST changes: -ISOVUE-370 76% 100 ML VIAL ONE
== END ==
LOC: M PLARAD 07:14
DX: C32.0 Malignant neoplasm of glottis (principal)